=== PATIENT | female | born 1970 | race Caucasian/White ===

== ENCOUNTER 2023-11-21 21:14 | Emergency (ER) | payer BC, SELFPAY ==
[2023-11-21 21:21] VITALS: BP 175/80; PULSE 115; RESP 18; TEMP 36.8; O2SAT 95; BMI 36.2
--- NOTE | 2023-11-21 22:50 | ED_ITS ---
HPI - Skin/Abscess/Foreign Bdy General Chief complaint: Skin/Abscess/Foreign Body Stated complaint: BOIL Time Seen by Provider: 11/21/23 22:47 Source: patient Mode of arrival: walk-in Limitations: no limitations History of Present Illness HPI narrative: abscess perianal started about 3 days ago. Presents with increasing pain. No fever or systemic symptoms MD complaint: Reports abscess/boil Related Data Home Medications Medication Instructions Recorded Confirmed glipizide 5 mg tablet 5 mg PO BID 11/21/23 11/21/23 Allergies Allergy/AdvReac Type Severity Reaction Status Date / Time bactrim Allergy Intermediate Hives Uncoded 11/21/23 21:23 Review of Systems ROS Status of ROS 10 or more systems reviewed and unremark able except as noted in history and below Exam Constitutional Vital Signs, click to edit/add: Last Vital Signs Temp 98.3 F 11/21/23 21:21 Pulse 115 H 11/21/23 21:21 Resp 18 11/21/23 21:21 BP 175/80 H 11/21/23 21:21 Pulse Ox 95 11/21/23 21:21 O2 Del Method Room Air 11/21/23 21:21 Common normals: no apparent distress, average body habitus, oriented x3 and no limitations HENMT Common normals: normocephalic and head/scalp atraumatic Respiratory Common normals: normal respiratory effort, no retractions and no use of accessory muscles Cardio Common normals: regular rate and regular rhythm GI Common normals: Normal to inspection, nondistended, normoactive bowel sounds present, soft to palpation and non-tender Other: perianal abscess Extremity Common normals: normal to inspection and full ROM Neuro Common normals: oriented x3, CN's II-XII intact bilaterally, moves all extremities and no focal motor deficits Psych Appearance: grossly normal Course Vital Signs Vital signs: Vital Signs Temperature 98.3 F 11/21/23 21:21 Pulse Rate 115 H 11/21/23 21:21 Respiratory Rate 18 11/21/23 21:21 Blood Pressure 175/80 H 11/21/23 21:21 Pulse Oximetry 95 11/21/23 21:21 Oxygen Delivery Method Room Air 11/21/23 21:21 Temperature 98.3 F 11/21/23 21:21 Pulse Rate 115 H 11/21/23 21:21 Respiratory Rate 18 11/21/23 21:21 Blood Pressure 175/80 H 11/21/23 21:21 Pulse Oximetry 95 11/21/23 21:21 Oxygen Delivery Method Room Air 11/21/23 21:21 MDM - Skin/Abscess/Foreign Bdy MDM Narrative Medical decision making narrative: presents with perianal absesss. I and D performed. Patient tolerated well. [facility] and is to follow up with Dr Greenwood Discharge Plan Discharge Chief Complaint: Skin/Abscess/Foreign Body Clinical Impression: Abscess, perianal Prescriptions / Home Meds: No Action glipizide 5 mg tablet 5 mg PO BID Instructions: Abscess Incision and Drainage (DC) Additional Instructions: follow up with Dr Greenwood in a couple of days. Referrals: Chapin Greenwood MD [Primary Care Provider] - 1 week Procedures ED Procedure Instructions Procedures Procedures: perianal abscess. 1% lidocaine used as a local. Site cleaned with betaine. 1cm incision with #15 blade. mod amount of brown exudate expressed. irrigated. packed with gauze. Tolerated well
--- NOTE | 2023-11-21 23:19 | PC.NURSE ---
Pt prrone to boils near groin and axillary area. Currently ahs quarter sized boil on left side buttocks near rectum. Pt reports discomfort sitting on bottom.
[2023-11-21] MEDS: CIPROFLOXACIN HCL 500 MG TABLET PO (23:56)
[2023-11-21] MEDS: LIDOCAINE HCL 1% 100 MG/10 ML MDV INJ (23:56)
[2023-11-22 00:01] VITALS: BP 140/87; PULSE 89; RESP 15; O2SAT 97
== END 2023-11-22 | disposition home or self-care (01) ==
PROVIDERS: Emergency Provider Internal Medicine; PCP Family Medicine
DX: K61.0 Anal abscess (principal)
CPT/HCPCS: 99283

== ENCOUNTER 2023-12-04 17:11 | Emergency (ER) | payer BC, SELFPAY ==
[2023-12-04 17:15] VITALS: BP 138/68; PULSE 103; RESP 18; TEMP 36.9; O2SAT 98; BMI 35.6
--- OUTSIDE RECORDS SUMMARY | 2023-12-04 17:20 | XMS_ITS | CCD ---
Author Name Unknown Address [address] [facility] [address] [place] [address] Organization [facility] Care Team Providers Care Assistant Track Coach Name Role Phone KENIA, DR JEFFERSON Admitting Unavailable HOY, DR JEFFERSON Attending Unavailable HOY, DR JEFFERSON Primary Care Unavailable HOY, DR JEFFERSON Consulting Unavailable HOY, DR JEFFERSON Admitting Unavailable HOY, DR JEFFERSON Attending Unavailable HOY, DR JEFFERSON Primary Care Unavailable HOY, DR JEFFERSON Consulting Unavailable WEST, DR NANCY Alvarez Consulting Unavailable HOY, DR JEFFERSON Admitting Unavailable HOY, DR JEFFERSON Attending Unavailable HOY, DR JEFFERSON Primary Care Unavailable HOY, DR JEFFERSON Consulting Unavailable HOY, DR JEFFERSON Primary Care Unavailable DEVYN DAVIES Admitting Unavailable KEKE, DEVYN Attending Unavailable KOTA CABRERA Consulting Unavailable WOLFGANGY, DR JEFFERSON Admitting Unavailable HOY, DR JEFFERSON Attending Unavailable HOY, DR JEFFERSON Primary Care Unavailable HOY, DR JEFFERSON Admitting Unavailable HOY, DR JEFFERSON Attending Unavailable WOLFGANGY, DR JEFFERSON Primary Care Unavailable HOY, DR JEFFERSON Consulting Unavailable Jose Lopez Attending Unavailable SEGUNDO PLASCENCIA Primary Care Physician [phone] Kevin LEONARD Attending Unavailable Li Greenwood Referring Unavailable Allergies Allergy Classification Reported Allergen(s) Allergy Type Date of Onset Reaction(s) Facility (1 source) oxyCODONE Drug Allergy [facility] Repository (4 sources) Sulfamethoxazole / Trimethoprim; Translations: [Bactrim] Drug Allergy 3 [facility] Repository (1 source) Sulfamethoxazole / Trimethoprim; Translations: [sulfamethoxazole-tr imethoprim] Drug Allergy Urticaria (disorder) [facility] Medications Current Medications Medication Drug Class(es) Dates Sig (Normalized) Sig (Original) polyethylene glycol 3350 24901 mg powder for oral solution (1 source) Osmotic Laxative Start: 11-30-2023 End: 12-07-2023 take 17 g by mouth once daily Miralax 3350 17 gram packet 17 gm, Oral, Daily, X 7 day(s), # 119 gm, Refills(s) 0, Pharmacy: [facility]/pharmacy #[id number], 170.2, cm, 11/30/23 9:04:00 EST, Height/Length Dosing, 105, kg, 11/30/23 9:04:00 EST, Weight Dosing Start Date: 11/30/23 Stop Date: 12/07/23 Status: Ordered Problems Active Problems Problem Classification Problem Date Documented Da te Episodic/Chronic Chronic obstructive pulmonary disease and bronchiectasis (1 source) Chronic obstructive pulmonary disease, unspecified; Translations: [COPD UNSPECIFIED] Onset: 12-22-2021 Chronic Diabetes mellitus with complications (1 source) Type 2 diabetes mellitus with hyperglycemia; Translations: [TYPE 2 DM W/HYPERGLYCEMIA] Onset: 07-22-2021 Chronic Diabetes mellitus without complication (4 sources) Type 2 diabetes mellitus without complications; Translations: [TYPE 2 DM WITHOUT COMPLICATIONS] Onset: 02-28-2022 Chronic Other aftercare (1 source) 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; Translations: [[facility] SPECIALIST CURRENT DRUG THERAPY] Onset: 03-04-2022 Episodic Other gastrointestinal disorders (1 source) Constipation, unspecified; Translations: [Constipation, unspecified] Onset: 11-30-2023 Episodic Other hematologic conditions (1 source) Secondary polycythemia; Translations: [SECONDARY POLYCYTHEMIA] Onset: 03-04-2022 Episodic Other screening for suspected conditions (not mental disorders or infectious disease) (4 sources) Encounter for screening mammogram for malignant neoplasm of breast; Translations: [ENC SCR MAMMO MALIG NEOPLASM BREAST] Onset: 01-29-2022 Episodic Other upper respiratory infections (1 source) Acute sinusitis, unspecified; Translations: [ACUTE SINUSITIS UNSPECIFIED] Onset: 12-22-2021 Episodic Residual codes; unclassified (1 source) Family history of malignant neoplasm of breast; Translations: [FAMILY HX MALIG NEOPLASM OF BREAST] Onset: 02-03-2022 Episodic Residual codes; unclassified (1 source) Family history of malignant neoplasm of bladder; Translations: [FAM HX MALIGNANT NEOPLASM BLADDER] Onset: 02-03-2022 Episodic Residual codes; unclassified (1 source) Family history of malignant neoplasm of digestive organs; Translations: [FAM HX MALIG NEOPLASM DIGESTIV ORGN] Onset: 02-03-2022 Episodic Unclassified (3 sources) CONTACT W/AND (SUSP) EXPOS COVID-19; Translations: [CONTACT W/AND (SUSP) EXPOS COVID-19] Onset: 12-22-2021 Past or Other Problems Problem Classification Problem Date Documented Da te Episodic/Chronic Other aftercare (1 source) rat 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 (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) use of oral hypoglycemic drugs; Translations: [DETENTION USE ORAL HYPOGLYCEMIC DX] Onset: 07-22-2021 Episodic Skin and subcutaneous tissue infections (4 sources) Cutaneous abscess of buttock; Translations: [CUTANEOUS ABSCESS OF BUTTOCK] Onset: 07-19-2021 Episodic Unclassified (1 source) CONTACT W/AND (SUSP) EXPOS COVID-19; Translations: [CONTACT W/AND (SUSP) EXPOS COVID-19] Onset: 12-19-2021 Results Test Name Value Interpretation Reference Range Facility Physician Referralon 024 Physician Referral [id number] IFF Normal [facility] Physician Referral [id number] 105 [id number] IFF Normal [facility] Consent for Treatmenton Consent for Treatment [id number]#[id number] IFF Normal [facility] Discharge Instructionson Discharge Instructions [id number] TIFF Normal [facility] ED Clinical Summaryon 2023 ED Clinical Summary (Inserted Image. Magda ble to display) [place] [id number] ED Clinical Summary Person Information [facility]: [facility] Age[facility] 53 Years : 1970 Sex: Female Language: Upper Sorbian PCP: SEGUNDO PLASCENCIA MD Marital Status: Visit Id: Visit Reason: Constipation; Rectal pain; CONSIPATED, POST OP ISSUES Speciality: Acuity: 3 Enc Type: Emergency Med Service: Emergency Arrival: 11/30/2023 08:52:35 Discharge: 11/30/2023 11:48:16 LOS: 000 02:56 Checkin: 11/30/2023 08:52:35 Checkout: 11/30/2023 11:48:16 Dispo Type: Home (Routine DC) EVENTS: Event Name Event Status Request Date/Time Start Date/Time Complete Date/Time Arrive Complete 11/30/2023 08:52:35 11/30/2023 08:52:35 11/30/2023 08:52:35 Document Home Meds Request 11/30/2023 08:52:35 Triage Complete 11/30/2023 08:52:35 11/30/2023 09:04:04 11/30/2023 09:04:04 Bed Assign Complete 11/30/2023 08:57:30 11/30/2023 08:57:30 11/30/2023 08:57:30 Dr Exam Complete 11/30/2023 08:57:30 11/30/2023 09:02:28 11/30/2023 09:02:28 RN Exam Complete 11/30/2023 08:57:30 11/30/2023 09:09:54 11/30/2023 09:09:54 Registration Complete 11/30/2023 09:02:28 11/30/2023 09:05:31 11/30/2023 09:05:31 Reg Complete Request 11/30/2023 09:05:31 Reg Bed Request Complete 11/30/2023 09:05:31 11/30/2023 09:05:31 11/30/2023 09:05:31 Patient Care Request 11/30/2023 09:13:34 Discharge Complete 11/30/2023 11:39:50 11/30/2023 11:48:20 11/30/2023 11:48:20 Transfer Complete 11/30/2023 11:48:20 11/30/2023 11:48:20 11/30/2023 11:48:20 ADDRESS: [address] [facility] [phone] PHYS DOC NOTES: MEDICAL INFORMATION: Prescriptions Given: New Medications [id number], [address] [place], [place] [phone], [phone] polyethylene glycol 3350 (Miralax 3350 17 gram packet) 17 Gram By Mouth every day for 7 Days. Refills: 0. PATIENT EDUCATION INFORMATION: Instructions: Follow up: With: Address: When: Kyra Tellez [address], [address], [facility] [address] [place] [phone] Business (1) In 3 days 12/03/2023 With: Address: When: [facility], [address] [phone] Business (1) In 3 days DIAGNOSIS: Constipation, acute Normal [facility] ED Note-Physicianon 11-30-19 ED Note-Physician Basic Information Time Seen: oJse Lopez DO 11/30/2023 09:02 Chief Complaint pt presents after having abcess lanced on 11/21. pt vebralized rectal pain andd constipation History of Present Illness 53 female presents to the emergency department with constipation and rectal pain. Patient states that she was just in the emergency department on 1224 with an abscess on her gluteal region. This was treated with incision and drainage at the [facility] and she was discharged home on Cipro. Patient states that she believes that she has been getting better regarding her abscess as everything seems to be healing up appropriately. However she states that she does not believe that she has had a normal bowel movement since 1225. She states that last night at 1700 she was trying to go to the bathroom to move her bowels she states she feels like she may have impaction there. This is never happened before she is never had issues with constipation but also has never had a colonoscopy. Prior abdominal surgeries include hernia repair and cholecystectomy but she has no nausea vomiting no fevers no urinary symptoms no blood with this. She has tried some laxatives drpt-mxx-vuwtccy as well as some stool softeners without relief of symptoms. She was not prescribed any pain medications or opiates for her recent procedure in the ER. No other aggravating or relieving factors no other associated symptoms no other prior treatments or complaints. Family: Reviewed and noncontributory Social: lives at home Review of systems negative unless otherwise specified in the HPI. Physical Exam Vitals & Measurements T: 36.6 ?C(Oral) HR: 107(Peripheral) RR: 18 BP: 146/94 SpO2: 98% HT: 170.18 cm WT: 105 kg BMI: 36.26 General: The patient appears well and in no apparent distress. Patient is resting comfortably on cart. Skin: Warm, dry, no pallor noted. Head: Normocephalic, atraumatic Neck: No JVD Eye: PERRLA, EOMI ENT: Moist mucus membranes Cardiovascular: Regular rate normal peripheral perfusion Respiratory: No respiratory distress no accessory muscle use no obvious audible wheezing Chest Wall: no deformity Musculoskeletal: normal ROM, no deformity, no swelling GI: Soft no obvious distention. No rebound or rigidity. No guarding. No tenderness. Rectal: Exam performed with nurse insole bottom filler in the room. I did examine the left gluteal soft tissue which does appear to have remnants of an abscess however this appears to be healing well there is no fluctuance to this area it is slightly tender to palpation but there is no redness no pus or drainage from this area. Rectal exam is benign there is no hemorrhoids appreciated no bleeding no obvious fissures there does appear to be large amount of stool in the rectal vault. Neurological: A&O moves all extremities equal strength and symmetry Psychiatric: Cooperative and appropriate Medical Decision Making Patient did have successful bowel movement here after milk of molasses enema. She is discharged home to follow-up I did educate her on the importance of following up with GI given recommendation of colonoscopy at the age of 46 she is certainly due for 1. Assessment/Plan Constipation, acute (K59.00: Constipation, unspecified) Orders: polyethylene glycol 3350, 17 gm, Oral, Daily, X 7 day(s), # 119 gm, Refills(s) 0, Pharmacy: [facility]/pharmacy #[id number], 170.2, cm, 11/30/23 9:04:00 EST, Height/Length Dosing, 105, kg, 11/30/23 9:04:00 EST, Weight Dosing Communication Order Communication Order Physician to Nursing Disposition Plan Discharge Prescription List Prescriptions Miralax 3350 17 gram packet, 17 gm, Oral, Daily Follow-up With When Contact Information Kyra Tellez In 3 days 12/03/[address], [address] [phone] Business (1) Additional Instructions: SEGUNDO PLASCENCIA In 3 days [facility] [address] [place] [address]- Business (1) Additional Instructions: Problem List/Past Medical History Ongoing No qualifying data Historical No qualifying data Medications Inpatient No active inpatient medications Home No active home medications Allergies Bactrim (Hives) Lab Results No qualifying data available. Diagnostic Results No qualifying data available. Normal [facility] Comment on above: Result Comment: Elec tronically Signed By: Jose Lopez DO\.br\Date and Time Signed: 11/30/23 11:40 EST ED Patient Education Noteon 11-30-2023 ED Patient Education Note Normal [facility] ED Patient Summaryon 024 ED Patient Summary (Inserted Image. Magda ble to display) [address] [address] Patient Discharge Instructions Person Information Name: CONRADO ABEBE Age: 53 Years Arrival Date: 11/30/2023 08:52:35 Discharge Diagnosis: Constipation, acute Primary Care Physician: SEGUNDO PLASCENCIA MD Provider Information Primary Provider: Jose Lopez DO Advanced Social Media Community Manager:None The exam and treatment you received in the Emergency Department were for an urgent problem and are not intended as complete care. It is important that you follow up with a doctor, nurse practitioner, or physician?s radiology physician assistant for ongoing care. If your symptoms become worse or you do not improve as expected and you are unable to reach your usual health care provider, you should return to the Emergency Department. We are available 24 hours a day. CONRADO ABEBE has been given the following list of patient education materials, prescriptions and follow-up instructions: Follow-up Instructions: With: Address: When: Kyra Tellez [address], [address], [address] [phone] Business (1) In 3 days 12/03/2023 With: Address: When: SEGUNDO PLASCENCIA [facility] [address] [place] [address] Business (1) In 3 days In the event that this physician does not participate in your insurance network, please consult with your insurance company to find a nearby participating provider. Patient Education Materials: A MESSAGE TO ALL PATIENTS REGARDING OPIOIDS PRESCRIPTION OPIOIDS: WHAT YOU NEED TO KNOW Prescription opioids can be used to help relieve yqaafxcp-hw-utxslv pain and are often prescribed following a surgery or injury, or for certain health conditions. These medications can be an important part of the treatment but also come with serious risks. It is important to work with your healthcare provider to make sure you are getting the safest, most effective care. WHAT ARE THE RISKS AND SIDE EFFECTS OF OPIOID USE? Prescription opioids carry serious risks of addiction and overdose, especially with prolonged use. An opioid overdose, often marked by slowed breathing, can cause sudden . The use of prescription opioids can have a number of side effects as well, even when taken as directed: ? Tolerance?meaning you might need to take more of the medication for the same pain relief ? Physical dependence?meaning you have symptoms of withdrawal when a medication is stopped ? Increased sensitivity to pain ? Constipation ? Nausea, vomiting, and dry mouth ? Sleepiness and dizziness ? Confusion ? Depression ? Low levels of testosterone that can result in lower sex drive, energy, and strength ? Itching and sweating RISKS ARE GREATER WITH: ? History of drug misuse, substance use disorder, or overdose ? Mental health conditions (such as depression or anxiety) ? Sleep apnea ? Older age (65 years and older) ? Avoid alcohol while taking prescription opioids. Also, unless specifically advised by your health care provider, medications to avoid include: ? Benzodiazepines (such as Xanax or Valium) ? Muscle relaxants (such as Soma or Flexeril) ? Hypnotics (such as Ambien or Lunesta) ? Other prescription opioids KNOW YOUR OPTIONS Talk to your health care provider about ways to manage your pain that don?t involve prescription opioids. Some of these options may actually work better and have fewer risks and side effects. Options may include: ? Pain relievers such as acetaminophen, ibuprofen, and naproxen ? Some medication that are also used for depression or seizures ? Physical therapy and exercise ? Cognitive behavioral therapy, a psychological, goal-directed approach, in which patients learn how to modify physical, behavioral, and emotional triggers of pain and stress. IF YOU ARE PRESCRIBED OPIOIDS FOR PAIN: ? Never take opioids in greater amounts or more often than prescribed. ? Follow up with your primary health care provider. o Work together to create a plan on how to manage your pain. o Talk about ways to help manage your pain that don?t involve prescription opioids. o Talk about any and all concerns and side effects. ? Help prevent misuse and abuse o Never sell or share prescription opioids. o Never use another person?s prescription opioids. ? Store prescription opioids in a secure place and out of reach of others (this may include visitors, children, friends, and family). ? Safely dispose of unused prescription opioids: Find your community drug take-back program or your pharmacy mail-back program, or flush them down the toilet, following guidance from the Food and Drug Administration (www.fda.gov/Drugs/Reso urcesForYou). ? Visit www.cdc.gov/drugoverdos e to learn about the risks of opioids abuse and overdose. ? If you believe you may be struggling with addiction, tell your health care (more content not included)... Normal [facility] CBC AUTO DIFFon 02-28-2022 BASO # 0.1 103/ul Normal 0.0-0.1 [facility] Comment on above: Performed By: #### C MP #### [facility] [address] [place] [address] Dr. Hai Williamson Basophils/100 WBC (Bld) 1.2 % Normal 0.2-2.0 [facility] Comment on above: Performed By: #### C MP #### [facility] [address] [place] [address] Dr. Hai Williamson EO # 0.2 103/ul Normal 0.0-0.7 [facility] Comment on above: Performed By: #### C MP #### [facility] [address] [place] [address] Dr. Hai Williamson Eosinophils/100 WBC (Bld) 2.7 % Normal 0.9-7.0 [facility] Comment on above: Performed By: #### C MP #### [facility] [address] [place] [address] Dr. Hai Williamson Erythrocyte distribution width (RBC) [Ratio] 15.3 % Critically high 11.0-15.0 [facility] Comment on above: Performed By: #### C MP #### [facility] [address] [place] [address] Dr. aHi Williamson Hematocrit (Bld) [Volume fraction] 59.0 % Critically high 36.0-48.0 [facility] Comment on above: Performed By: #### C MP #### [facility] [address] [place] [address] Dr. Hai Williamson Hemoglobin (Bld) [Mass/Vol] 19.1 g/dL Critically high 12.0-16.0 [facility] Comment on above: Performed By: #### C MP #### [facility] [address] [place] [address] Dr. Hai Williamson IG # 0.02 10e3/ul Normal 0.00-0.03 [facility] Comment on above: Performed By: #### C MP #### [facility] [address] [place] [address] Dr. Hai Williamson IG % 0.3 % Normal 0.0-0.5 [facility] Comment on above: Performed By: #### C MP #### [facility] [address] [place] [address] Dr. Hai Williamson LYMPH # 1.9 103/ul Normal 1.2-3.8 [facility] Comment on above: Performed By: #### C MP #### [facility] [address] [place] [address] Dr. Hai Williamson Lymphocytes/100 WBC (Bld) 28.4 % Normal 20.5-60.0 [facility] Comment on above: Performed By: #### C MP #### [facility] [address] [place] [address] Dr. Hai Williamson MANUAL DIFF REQ NO Normal [facility] Comment on above: Performed By: #### C MP #### [facility] [address] [place] [address] Dr. Hai Williamson MCH (RBC) [Entitic mass] 30.8 pg Normal 26.7-34.0 [facility] Comment on above: Performed By: #### C MP #### [facility] [address] [place] [address] Dr. Hai Williamson MCHC (RBC) [Mass/Vol] 32.4 g/dL Normal 29.9-35.2 [facility] Comment on above: Performed By: #### C MP #### [facility] [address] [place] [address] Dr. Hai Williamson MCV (RBC) [Entitic vol] 95.0 fL Normal 81.0-99.0 [facility] Comment on above: Performed By: #### C MP #### [facility] [address] [place] [address] Dr. Hai Williamson MONO # 0.7 103/ul Normal 0.3-0.8 [facility] Comment on above: Performed By: #### C MP #### [facility] [address] [place] [address] Dr. Hai Williamson Monocytes/100 WBC (Bld) 10.4 % Normal 1.7-12.0 [facility] Comment on above: Performed By: #### C MP #### [facility] [address] [place] [address] Dr. Hai Williamson NEUT # 3.8 103/ul Normal 1.4-6.5 [facility] Comment on above: Performed By: #### C MP #### [facility] [address] [place] [address] Dr. Hai Williamson Neutrophils/100 WBC (Bld) 57.0 % Normal 43.0-75.0 [facility] Comment on above: Performed By: #### C MP #### [facility] [address] [place] [address] Dr. Hai Williamson Platelet mean volume (Bld) [Entitic vol] 8.7 fL Critically low 9.5-13.5 [facility] Comment on above: Performed By: #### C MP #### [facility] [address] [place] [address] Dr. Hai Williamson PLT 168 103/ul Normal 150-450 [facility] Comment on above: Performed By: #### C MP #### [facility] [address] [address] [address] Hai Williamson RBC 6.21 106/ul Critically high 4.20-5.40 [facility] Comment on above: Performed By: #### C MP #### [facility] [address] [address] [address] Hai Williamson WBC 6.6 103/ul Normal 4.0-11.0 [facility] Comment on above: Performed By: #### C MP #### [facility] [address] [address] [address] Hai Williamson GLYCOHEMOGLOBIN A1Con 2021 ADA RECOMMENDATION ADA THERAPEUTIC TARG ET 6.0 - 7.0 ACTION SUGGESTED > 7.0 Normal [facility] Comment on above: Performed By: #### A 1C #### [facility] [address] [address] [address] Hai Williamson Glucose [Mass/Vol] 249 mg/dL Normal [facility] Comment on above: Performed By: #### A 1C #### [facility] [address] [address] [address] Hai Williamson HbA1c (Bld) [Mass fraction] 10.3 % Critically high <=6.0 [facility] Comment on above: Performed By: #### A 1C #### [facility] [address] [place] [address] Dr. Hai Williamson PERIPHERAL SMEARon Pathologist Cyto stain Nom (Cvx/Vag) [ID] DR. RUBY GARDNER Normal [facility] Comment on above: Result Comment: Revi ew of peripheral smear reveals erythrocytosis. No schistocytes or microspherocytes are seen. The platelets are adequate in number with normal morphology. No atypical lymphocytes or immature blasts are seen. The differential includes secondary polycythemia vs a myeloproliferative disorder. Recommend clinical correlation with laboratory studies such as EPO and if a myeloproliferative disorder is of clinical concern, RICHIE-2 mutation analysis of peripheral blood is recommended. CPT 78119 Fatoumata Gardner MD 03-04-22 Performed By: #### C MP #### [facility] [address] [address] [address] Hai Williamson PROF 14(COMP METB)on 022 Albumin [Mass/Vol] 3.3 g/dL Critically low 3.4-5.0 Th e [facility] Comment on above: Performed By: #### C MP #### [facility] [address] [address] [address] Hai Williamson Albumin/Globulin [Mass ratio] 0.8 {ratio} Normal [facility] Comment on above: Performed By: #### C MP #### [facility] [address] [place] [address] Dr. Hai Williamson ALP [Catalytic activity/Vol] 127 U/L Critically high 46-116 [facility] Comment on above: Performed By: #### C MP #### [facility] [address] [place] [address] Dr. Hai Williamson ALT [Catalytic activity/Vol] 45 U/L Normal 14-59 [facility] Comment on above: Performed By: #### C MP #### [facility] [address] [place] [address] Dr. Hai Williamson Anion gap [Moles/Vol] 14.1 mmol/L Normal [facility] Comment on above: Performed By: #### C MP #### [facility] [address] [place] [address] Dr. Hai Williamson AST [Catalytic activity/Vol] 29 U/L Normal 15-37 [facility] Comment on above: Performed By: #### C MP #### [facility] [address] [place] [address] Dr. Hai Williamson Bilirubin [Mass/Vol] 0.7 mg/dL Normal 0.2-1.3 [facility] Comment on above: Performed By: #### C MP #### [facility] [address] [place] [address] Dr. Hai Williamson Calcium [Mass/Vol] 8.5 mg/dL Normal 8.5-10.1 [facility] Comment on above: Performed By: #### C MP #### [facility] [address] [place] [address] Dr. Hai Williamson Chloride [Moles/Vol] 103 mmol/L Normal 98-107 [facility] Comment on above: Performed By: #### C MP #### [facility] [address] [address] [address] Hai Williamson CO2 [Moles/Vol] 28.8 mmol/L Normal 22.0-30.0 [facility] Comment on above: Performed By: #### C MP #### [facility] [address] [place] [address] Dr. Hai Williamson Creatinine [Mass/Vol] 0.54 mg/dL Normal 0.52-1.04 [facility] Comment on above: Performed By: #### C MP #### [facility] [address] [place] [address] Dr. Hai Williamson EGFR-AF NORTH KOREAN >60 Normal >=60 [facility] Comment on above: Performed By: #### C MP #### [facility] [address] [place] [address] Dr. Hai Williamson EGFR-NON AF [place]TH [place]OREAN >60 Normal >=60 [facility] Comment on above: Performed By: #### C MP #### [facility] [address] [place] [address] Dr. Hai Williamson Globulin (S) [Mass/Vol] 4.2 g/dL Normal [facility] Comment on above: Performed By: #### C MP #### [facility] [address] [place] [address] Dr. Hai Williamson Glucose [Mass/Vol] 180 mg/dL Critically high 74-106 [facility] Comment on above: Performed By: #### C MP #### [facility] [address] [place] [address] Dr. Hai Williamson Potassium [Moles/Vol] 3.9 mmol/L Normal 3.4-5.0 [facility] Comment on above: Performed By: #### C MP #### [facility] [address] [place] [address] Dr. Hai Williamson Protein [Mass/Vol] 7.5 g/dL Normal 6.1-8.2 [facility] Comment on above: Performed By: #### C MP #### [facility] [address] [address] [address] Hai Williamson Sodium [Moles/Vol] 142 mmol/L Normal 137-145 [facility] Comment on above: Performed By: #### C MP #### [facility] [address] [address] [address] Hai Williamson Urea nitrogen [Mass/Vol] 7.0 mg/dL Normal 7.0-18.0 [facility] Comment on above: Performed By: #### C MP #### [facility] [address] [address] [address] Hai Williamson Urea nitrogen/Creatinine [Mass ratio] 13.0 mg/mg Normal [facility] Comment on above: Performed By: #### C MP #### [facility] [address] [address] [address] Hai Williamson MG MAMM SCREEN 3D JULIET CADon 01-29-2022 MG MAMM SCREEN 3D JULIET CAD Patient: CONRADO ABEBE Exam Date: 01/29/2022 : 1970 Gender:F Ordering : DR LI GREENWOOD . Admission #: [id number] Family : Order #: [id number] CLICK HERE TO VIEW EXAM RADIOLOGY REPORT PROCEDURE: MAMMOGRAM SCREENING 3D BILATERAL CAD COMPARISON: MG MAMM SCREEN JULIET W CAD, 11/19/2020. INDICATIONS: Screening mammography Calculator Name NCI Breast Cancer Risk Assessment Tool 5 Year Breast Cancer Risk 2.00% Lifetime Breast Cancer Risk 17.40% Personal Breast Cancer No Personal Ovarian Cancer No Treatments None Family Cancers Mother with breast cancer at age 55; Mother with throat cancer at age 68; Father with bladder cancer at age 71. LOCATION: [facility] BREAST COMPOSITION: Scattered areas fibroglandular density. FINDINGS: DIAGNOSTIC CATEGORY 1--NEGATIVE. NO CHANGE FROM COMPARISON ASSESSMENT. Scattered benign-appearing calcifications are present. Scattered benign-appearing lymph nodes are present. RIGHT BREAST: No significant suspicious finding. LEFT BREAST: No significant suspicious finding. RECOMMENDATIONS: ROUTINE MAMMOGRAM AND CLINICAL EVALUATION IN 12 MONTHS. PLEASE NOTE: A NORMAL MAMMOGRAM DOES NOT EXCLUDE THE POSSIBILITY OF BREAST CANCER. A CLINICALLY SUSPICIOUS PALPABLE LUMP SHOULD BE BIOPSIED. Dictated by: Nancy Abebe MD on 01/30/2022 at 08:02 Approved by: Nancy Abebe MD on 01/30/2022 at 08:04 Normal [facility] CBC AUTO DIFFon 01-24-2022 BASO # 0.1 103/ul Normal 0.0-0.1 [facility] Comment on above: Performed By: #### C MP #### [facility] [address] [address] [address] Hai Williamson Basophils/100 WBC (Bld) 1.0 % Normal 0.2-2.0 [facility] Comment on above: Performed By: #### C MP #### [facility] [address] [place] [address] Dr. Hai Williamson EO # 0.1 103/ul Normal 0.0-0.7 [facility] Comment on above: Performed By: #### C MP #### [facility] [address] [place] [address] Dr. Hai Williamson Eosinophils/100 WBC (Bld) 1.7 % Normal 0.9-7.0 [facility] Comment on above: Performed By: #### C MP #### [facility] [address] [place] [address] Dr. Hai Williamson Erythrocyte distribution width (RBC) [Ratio] 15.9 % Critically high 11.0-15.0 [facility] Comment on above: Performed By: #### C MP #### [facility] [address] [place] [address] Dr. Hai Williamson Hematocrit (Bld) [Volume fraction] 65.5 % Critically high 36.0-48.0 [facility] Comment on above: Performed By: #### C MP #### [facility] [address] [place] [address] Dr. Hai Williamson Hemoglobin (Bld) [Mass/Vol] 21.8 g/dL Critically high 12.0-16.0 [facility] Comment on above: Performed By: #### C MP #### [facility] [address] [address] [address] Hai Williamson IG # 0.02 10e3/ul Normal 0.00-0.03 [facility] Comment on above: Performed By: #### C MP #### [facility] [address] [address] [address] Hai Williamson IG % 0.3 % Normal 0.0-0.5 [facility] Comment on above: Performed By: #### C MP #### [facility] [address] [place] [address] Dr. Hai Williamson LYMPH # 2.5 103/ul Normal 1.2-3.8 [facility] Comment on above: Performed By: #### C MP #### [facility] [address] [place] [address] Dr. Hai Williamson Lymphocytes/100 WBC (Bld) 34.8 % Normal 20.5-60.0 [facility] Comment on above: Performed By: #### C MP #### [facility] [address] [place] [address] Dr. Hai Williamson MANUAL DIFF REQ NO Normal [facility] Comment on above: Performed By: #### C MP #### [facility] [address] [place] [address] Dr. Hai Williamson MCH (RBC) [Entitic mass] 31.6 pg Normal 26.7-34.0 [facility] Comment on above: Performed By: #### C MP #### [facility] [address] [place] [address] Dr. Hai Williamson MCHC (RBC) [Mass/Vol] 33.3 g/dL Normal 29.9-35.2 [facility] Comment on above: Performed By: #### C MP #### [facility] [address] [place] [address] Dr. Hai Williamson MCV (RBC) [Entitic vol] 94.9 fL Normal 81.0-99.0 [facility] Comment on above: Performed By: #### C MP #### [facility] [address] [place] [address] Dr. Hai Williamson MONO # 0.6 103/ul Normal 0.3-0.8 [facility] Comment on above: Performed By: #### C MP #### [facility] [address] [address] [address] Hai Williamson Monocytes/100 WBC (Bld) 7.7 % Normal 1.7-12.0 [facility] Comment on above: Performed By: #### C MP #### [facility] [address] [address] [address] Hai Williamson NEUT # 3.9 103/ul Normal 1.4-6.5 [facility] Comment on above: Performed By: #### C MP #### [facility] [address] [place] [address] Dr. Hai Williamson Neutrophils/100 WBC (Bld) 54.5 % Normal 43.0-75.0 [facility] Comment on above: Performed By: #### C MP #### [facility] [address] [place] [address] Dr. Hai Williamson Platelet mean volume (Bld) [Entitic vol] 9.8 fL Normal 9.5-13.5 [facility] Comment on above: Performed By: #### C MP #### [facility] [address] [place] [address] Dr. Hai Williamson PLT 154 103/ul Normal 150-450 [facility] Comment on above: Performed By: #### C MP #### [facility] [address] [address] [address] Hai Williamson RBC 6.90 106/ul Critically high 4.20-5.40 [facility] Comment on above: Performed By: #### C MP #### [facility] [address] [place] [address] Dr. Hai Williamson WBC 7.2 103/ul Normal 4.0-11.0 [facility] Comment on above: Performed By: #### C MP #### [facility] [address] [place] [address] Dr. Hai Williamson DIRECT LDLon 01-24-2022 Cholesterol in LDL [Mass/Vol] 204 mg/dL Normal [facility] Comment on above: Performed By: #### L IPID, CMP, T7, TSH, DLDL #### [facility] [address] [place] [address] Dr. Hai Williamson DLDL NORMAL SEE BELOW Normal [facility] Comment on above: Result Comment: <100 mg/dl OPTIMAL 100 - 129 mg/dl NEAR OR ABOVE OPTIMAL 130 - 159 mg/dl BORDERLINE HIGH 160 - 189 mg/dl HIGH >190 mg/dl VERY HIGH Performed By: #### L IPID, CMP, T7, TSH, DLDL #### [facility] [address] [address] [address] Hai Williamson FREE THYROXINE INDEX T7on FTI 2.73 Normal [facility] Comment on above: Performed By: #### L IPID, CMP, T7, TSH, DLDL #### [facility] [address] [place] [address] Dr. Hai Williamson T3U 31.0 % Normal 23.5-40.5 [facility] Comment on above: Performed By: #### L IPID, CMP, T7, TSH, DLDL #### [facility] [address] [place] [address] Dr. Hai Williamson T4 [Mass/Vol] 8.80 ug/dL Normal 5.53-11.00 [facility] Comment on above: Performed By: #### L IPID, CMP, T7, TSH, DLDL #### [facility] [address] [place] [address] Dr. Hai Williamson GLYCOHEMOGLOBIN A1Con 2021 ADA RECOMMENDATION ADA THERAPEUTIC TARG ET 6.0 - 7.0 ACTION SUGGESTED > 7.0 Normal [facility] Comment on above: Performed By: #### C MP #### [facility] [address] [place] [address] Dr. Hai Williamson Glucose [Mass/Vol] 246 mg/dL Normal [facility] Comment on above: Performed By: #### C MP #### [facility] [address] [place] [address] Dr. Hai Williamson HbA1c (Bld) [Mass fraction] 10.2 % Critically high <=6.0 [facility] Comment on above: Performed By: #### C MP #### [facility] [address] [place] [address] Dr. Hai Williamson IRONon 01-24-2022 Iron [Mass/Vol] 145.0 ug/dL Normal 37.0-170.0 [facility] Comment on above: Performed By: #### I JOY #### [facility] [address] [place] [address] Dr. Hai Williamson LIPID PROFILEon 01-24-2022 CHOL-HDL RATIO NORM SEE BELOW Normal [facility] Comment on above: Result Comment: 3.3 - 4.4 LOW RISK 4.4 - 7.1 AVERAGE RISK 7.1 - 11.0 MODERATE RISK >11.0 HIGH RISK Performed By: #### L IPID, CMP, T7, TSH, DLDL #### [facility] [address] [place] [address] Dr. Hai Williamson Cholesterol [Mass/Vol] 332 mg/dL Critically high <=200 [facility] Comment on above: Performed By: #### L IPID, CMP, T7, TSH, DLDL #### [facility] [address] [place] [address] Dr. Hai Williamson Cholesterol in HDL [Mass/Vol] 40 mg/dL Normal [facility] Comment on above: Performed By: #### L IPID, CMP, T7, TSH, DLDL #### [facility] [address] [place] [address] Dr. Hai Williamson Cholesterol.total/Ch olesterol in HDL [Mass ratio] 8.3 {ratio} Normal [facility] Comment on above: Performed By: #### L IPID, CMP, T7, TSH, DLDL #### [facility] [address] [place] [address] Dr. Hai Williamson HDL NORMAL > or = 60 mg/dl - LO W CARDIOVASCULAR RISK <40 mg/dl - HIGH CARDIOVASCULAR RISK Normal [facility] Comment on above: Performed By: #### L IPID, CMP, T7, TSH, DLDL #### [facility] [address] [address] [address] Hai Williamson Triglyceride [Mass/Vol] 441 mg/dL Critically high <=150 [facility] Comment on above: Performed By: #### L IPID, CMP, T7, TSH, DLDL #### [facility] [address] [place] [address] Dr. Hai Williamson PROF 14(COMP METB)on 022 Albumin [Mass/Vol] 3.2 g/dL Critically low 3.5-5.0 Th e [facility] Comment on above: Performed By: #### L IPID, CMP, T7, TSH, DLDL #### [facility] [address] [place] [address] Dr. Hai Williamson Albumin/Globulin [Mass ratio] 0.7 {ratio} Normal [facility] Comment on above: Performed By: #### L IPID, CMP, T7, TSH, DLDL #### [facility] [address] [place] [address] Dr. Hai Williamson ALP [Catalytic activity/Vol] 191 U/L Critically high 38-126 [facility] Comment on above: Performed By: #### L IPID, CMP, T7, TSH, DLDL #### [facility] [address] [place] [address] Dr. Hai Williamson ALT [Catalytic activity/Vol] 118 U/L Critically high 9-52 [facility] Comment on above: Performed By: #### L IPID, CMP, T7, TSH, DLDL #### [facility] [address] [address] [address] Hai Williamson Anion gap [Moles/Vol] 9.7 mmol/L Normal [facility] Comment on above: Performed By: #### L IPID, CMP, T7, TSH, DLDL #### [facility] [address] [place] [address] Dr. Hai Williamson AST [Catalytic activity/Vol] 74 U/L Critically high 14-36 [facility] Comment on above: Performed By: #### L IPID, CMP, T7, TSH, DLDL #### [facility] [address] [address] [address] Hai Williamson Bilirubin [Mass/Vol] 1.0 mg/dL Normal 0.2-1.3 [facility] Comment on above: Performed By: #### L IPID, CMP, T7, TSH, DLDL #### [facility] [address] [address] [address] Hai Williamson Calcium [Mass/Vol] 9.5 mg/dL Normal 8.4-10.2 [facility] Comment on above: Performed By: #### L IPID, CMP, T7, TSH, DLDL #### [facility] [address] [place] [address] Dr. Hai Williamson Chloride [Moles/Vol] 99 mmol/L Normal 98-107 [facility] Comment on above: Performed By: #### L IPID, CMP, T7, TSH, DLDL #### [facility] [address] [address] [address] Hai Williamson CO2 [Moles/Vol] 28.8 mmol/L Normal 22.0-30.0 [facility] Comment on above: Performed By: #### L IPID, CMP, T7, TSH, DLDL #### [facility] [address] [place] [address] Dr. aHi Williamson Creatinine [Mass/Vol] 0.60 mg/dL Normal 0.52-1.04 [facility] Comment on above: Performed By: #### L IPID, CMP, T7, TSH, DLDL #### [facility] [address] [place] [address] Dr. Hai Williamson EGFR-AF [place]TH [place]OREAN >60 Normal >=60 [facility] Comment on above: Performed By: #### L IPID, CMP, T7, TSH, DLDL #### [facility] [address] [place] [address] Dr. Hai Williamson EGFR-NON AF [place]ORE[place] >60 Normal >=60 [facility] Comment on above: Performed By: #### L IPID, CMP, T7, TSH, DLDL #### [facility] [address] [place] [address] Dr. Hai Williamson Globulin (S) [Mass/Vol] 4.7 g/dL Normal [facility] Comment on above: Performed By: #### L IPID, CMP, T7, TSH, DLDL #### [facility] [address] [address] [address] Hai Williamson Glucose [Mass/Vol] 346 mg/dL Critically high 74-106 [facility] Comment on above: Performed By: #### L IPID, CMP, T7, TSH, DLDL #### [facility] [address] [place] [address] Dr. Hai Williamson Potassium [Moles/Vol] 4.5 mmol/L Normal 3.4-5.0 [facility] Comment on above: Performed By: #### L IPID, CMP, T7, TSH, DLDL #### [facility] [address] [place] [address] Dr. Hai Williamson Protein [Mass/Vol] 7.9 g/dL Normal 6.1-8.2 [facility] Comment on above: Performed By: #### L IPID, CMP, T7, TSH, DLDL #### [facility] [address] [place] [address] Dr. Hai Williamson Sodium [Moles/Vol] 133 mmol/L Critically low 137-145 [facility] Comment on above: Performed By: #### L IPID, CMP, T7, TSH, DLDL #### [facility] [address] [place] [address] Dr. Hai Williamson Urea nitrogen [Mass/Vol] 12.0 mg/dL Normal 7.0-17.0 [facility] Comment on above: Performed By: #### L IPID, CMP, T7, TSH, DLDL #### [facility] [address] [place] [address] Dr. Hai Williamson Urea nitrogen/Creatinine [Mass ratio] 20.0 mg/mg Normal [facility] Comment on above: Performed By: #### L IPID, CMP, T7, TSH, DLDL #### [facility] [address] [place] [address] Dr. Hai Williamson TSHon 01-24-2022 TSH 2.090 uIU/mL Normal 0.470-4.680 [facility] Comment on above: Performed By: #### L IPID, CMP, T7, TSH, DLDL #### [facility] [address] [address] [address] Hai Williamson TSH RANGE SEE BELOW Normal [facility] Comment on above: Result Comment: <0.3 4 UIU/ml HYPERTHYROID 0.34-5.60 UIU/ml EUTHYROID >5.60 UIU/ml HYPOTHYROID Performed By: #### L IPID, CMP, T7, TSH, DLDL #### [facility] [address] [address] [address] Hai Williamson [facility] SARS-CoV-2 (COVID-19) RNA MICHAEL+probe Ql (Unsp spec) Not detected Normal NOT DETECTED [facility] Comment on above: Result Comment: This test is not yet approved or cleared by the [place] FDA. When there are no FDA-approved or cleared tests available, and other criteria are met, FDA can make tests available under an emergency access mechanism called an Emergency Use Authorization (EUA). The EUA for this test is supported by the [employer] Clerk of Health and Human Service's (HHS's) declaration that circumstances exist to justify the emergency use of in vitro diagnostics for the detection and/or diagnosis of the virus that causes COVID-19. This EUA will remain in effect (meaning this test can be used) for the duration of the COVID-19 declaration justifying emergency of IVDs, unless it is terminated or revoked by FDA (after which the test may no longer be used). When diagnostic testing is negative, the possibility of a false negative should be considered in the context of a patient's recent exposures and the presence of clinical signs and symptoms consistent with SARS-CoV-2. Performed By: #### C MP #### [facility] [address] [place] [address] Dr. Hai Williamson CULTURE ABSCESSon 07-22-2021 CULTURE ABSCESS Specimen Comments: Abscess on right buttock Culture Observations: No growth of anaerobes at 72 hours. Isolate 1 Escherichia coli Moderate growth of ORGANISM 1 Escherichia coli ANTIBIOTIC M.I.C RX STATUS Ampicillin <=2 S F Ampicillin/Sulbactam <=2 S F Piperacillin/Tazobactam <=4 S F Cefazolin <=4 S F Ceftazidime <=1 S F Ceftriaxone <=1 S F Ertapenem <=0.5 S F Imipenem <=0.25 S F Amikacin <=2 S F Gentamicin <=1 S F Tobramycin <=1 S F Ciprofloxacin <=0.25 S F Levofloxacin <=0.12 S F Trimethoprim/Sulfametho xazole <=20 S F Normal [facility] Comment on above: Performed By: #### C MP #### [facility] [address] [place] [address] Dr. Hai Williamson CBC AUTO DIFFon 07-19-2021 BASO # 0.1 103/ul Normal 0.0-0.1 [facility] Comment on above: Performed By: #### C BC #### [facility] [address] [place], [place] [id number] Meenu Lily Basophils/100 WBC (Bld) 0.5 % Normal 0.2-2.0 [facility] Comment on above: Performed By: #### C BC #### [facility] [facility] [address] [place], [place] [id number] Meenu Lily EO # 0.2 103/ul Normal 0.0-0.7 [facility] Comment on above: Performed By: #### C BC #### [facility] [address] [place] [address] Meenu Lily Eosinophils/100 WBC (Bld) 1.4 % Normal 0.9-7.0 [facility] Comment on above: Performed By: #### C BC #### [facility] [address] [place], [place] [id number] Meenu Lily Erythrocyte distribution width (RBC) [Ratio] 14.0 % Normal 11.0-15.0 [facility] Comment on above: Performed By: #### C BC #### [facility] [address] [place] [address] Meenuanna Bautista Hematocrit (Bld) [Volume fraction] 53.1 % Critically high 36.0-48.0 [facility] Comment on above: Performed By: #### C BC #### [facility] [address] [place] [address] Meenu Lily Hemoglobin (Bld) [Mass/Vol] 17.6 g/dL Critically high 12.0-16.0 [facility] Comment on above: Performed By: #### C BC #### [facility] [address] [place], [place] [address] Meenu Lily IG # 0.07 10e3/ul Critically high 0.00-0.03 [facility] Comment on above: Performed By: #### C BC #### [facility] [address] [place] [address] Meenu Lily IG % 0.5 % Normal 0.0-0.5 [facility] Comment on above: Performed By: #### C BC #### [facility] [address] [place], [place] [address] Meenu Lily LYMPH # 3.0 103/ul Normal 1.2-3.8 [facility] Comment on above: Performed By: #### C BC #### [facility] [address] [place], [place] [address] Meenu Bautista Lymphocytes/100 WBC (Bld) 20.5 % Normal 20.5-60.0 [facility] Comment on above: Performed By: #### C BC #### [facility] [address] [place], [place] [address] Meenu Bautista MANUAL DIFF REQ NO Normal [facility] Comment on above: Performed By: #### C BC #### [facility] [address] [place], [place] [address] Meenu Bautista MCH (RBC) [Entitic mass] 31.7 pg Normal 26.7-34.0 [facility] Comment on above: Performed By: #### C BC #### [facility] [address] [place], [place] [address] Meenuanna Bautista MCHC (RBC) [Mass/Vol] 33.1 g/dL Normal 29.9-35.2 [facility] Comment on above: Performed By: #### C BC #### [facility] [address] [place], [place] [address] Meenu Bautista MCV (RBC) [Entitic vol] 95.7 fL Normal 81.0-99.0 [facility] Comment on above: Performed By: #### C BC #### [facility] [address] [place], [place] [address] Meenuanna Crameren MONO # 1.0 103/ul Critically high 0.3-0.8 [facility] Comment on above: Performed By: #### C BC #### [facility] [address] [place], [place] [address] Meenu Bautista Monocytes/100 WBC (Bld) 7.1 % Normal 1.7-12.0 [facility] Comment on above: Performed By: #### C BC #### [facility] [address] [place], [place] [address] Meenuanna Crameren NEUT # 10.1 103/ul Critically high 1.4-6.5 [facility] Comment on above: Performed By: #### C BC #### [facility] [address] [place], [place] [address] Meenu Bautista Neutrophils/100 WBC (Bld) 70.0 % Normal 43.0-75.0 [facility] Comment on above: Performed By: #### C BC #### [facility] [address] [place], [place] [address] Meenuanna Bautista Platelet mean volume (Bld) [Entitic vol] 9.5 fL Normal 9.5-13.5 [facility] Comment on above: Performed By: #### C BC #### [facility] [address] [place], [place] [address] Meenu Lily PLT 186 103/ul Normal 150-450 [facility] Comment on above: Performed By: #### C BC #### [facility] [address] [place], [place] [address] Meenu Lily RBC 5.55 106/ul Critically high 4.20-5.40 [facility] Comment on above: Performed By: #### C BC #### [facility] [address] [id number] Meenu Lily WBC 14.4 103/ul Critically high 4.0-11.0 [facility] Comment on above: Performed By: #### C BC #### [facility] [address] [place], [place] [address] Meenu Lily CULTURE BLOODon 07-19-2021 Microscopic examination of blood, culture Culture Observations: NO GROWTH AT 5 DAYS. Normal The [facility] Comment on above: Performed By: #### C MP #### [facility] [address] [place], [place] [address] Dr. Hai Williamson PROF CHEM 8 (BAS METB)on Anion gap [Moles/Vol] 13.0 mmol/L Normal [facility] Comment on above: Performed By: #### B MP #### [facility] [address] [place] [address] Meenu Lily Calcium [Mass/Vol] 9.2 mg/dL Normal 8.4-10.2 [facility] Comment on above: Performed By: #### B MP #### [facility] [address] [place] [address] Meenu Lily Chloride [Moles/Vol] 100 mmol/L Normal 98-107 [facility] Comment on above: Performed By: #### B MP #### [facility] [address] [place] [address] Meenu Lily CO2 [Moles/Vol] 28.3 mmol/L Normal 22.0-30.0 [facility] Comment on above: Performed By: #### B MP #### [facility] [address] [place], [place] [address] Meenu Lily Creatinine [Mass/Vol] 0.89 mg/dL Normal 0.52-1.04 [facility] Comment on above: Performed By: #### B MP #### [facility] [address] [place], [place] [address] Meenu Lily EGFR-AF [place]ORE[place] >60 Normal >=60 [facility] Comment on above: Performed By: #### B MP #### [facility] [address] [place], [place] [address] Meenu Lily EGFR-NON AF [place]ORE[place] >60 Normal >=60 [facility] Comment on above: Performed By: #### B MP #### [facility] [address] [place], [place] [address] Meenu Lily Glucose [Mass/Vol] 377 mg/dL Critically high 74-106 [facility] Comment on above: Performed By: #### B MP #### [facility] [address] [place], [place] [address] Meenu Lily Potassium [Moles/Vol] 4.3 mmol/L Normal 3.4-5.0 [facility] Comment on above: Performed By: #### B MP #### [facility] [address] [place] [address] Meenu Lily Sodium [Moles/Vol] 137 mmol/L Normal 137-145 [facility] Comment on above: Performed By: #### B MP #### [facility] [address] [place], [place] [address] Meenu Lily Urea nitrogen [Mass/Vol] 16.0 mg/dL Normal 7.0-17.0 [facility] Comment on above: Performed By: #### B MP #### [facility] [address] [place] [address] Meenu Lily Urea nitrogen/Creatinine [Mass ratio] 18.0 mg/mg Normal [facility] Comment on above: Performed By: #### B MP #### [facility] [address] [place], [place] [address] Meenu Lily Vital Signs Date Time Vital Sign Value Performing Clinician Edouardi wilmer 11-30-2023 10:24-0500 Diastolic blood pressure 76 mm[Hg] Jose Lopez [facility] 11-30-2023 10:24-0500 Heart rate 90 /min Jose Lopez [facility] 11-30-2023 10:24-0500 Respiratory rate 16 /min Jose Lopez [facility] 11-30-2023 10:24-0500 SaO2% (BldA) [Mass fraction] 96 % Jose Lopez [facility] 11-30-2023 10:24-0500 Systolic blood pressure 140 mm[Hg] Jose Lopez [facility] 11-30-2023 08:59-0500 Body temperature 97.88 [degF] Jose Lopez [facility] 11-30-2023 08:59-0500 Diastolic blood pressure 94 mm[Hg] Jose Lopez [facility] 11-30-2023 08:59-0500 Heart rate 107 /min Jose Lopez [facility] 11-30-2023 08:59-0500 Respiratory rate 18 /min Jose Lopez [facility] 11-30-2023 08:59-0500 SaO2% (BldA) [Mass fraction] 98 % Jose Lopez [facility] 11-30-2023 08:59-0500 Systolic blood pressure 146 mm[Hg] Jose Lopez [facility] Encounters Encounter Date Encounter Type Care Provider Facility Start: 12-07-2023 ambulatory Kevin LEONARD Facility :[facility] Start: 12-02-2023 ambulatory Kevin LEONARD Facility:[facility] Start: 11-30-2023 End: 11-30-2023 Emergency department patient visit Jose Jessica Facility:[facility] Start: 11-30-2023 End: 11-30-2023 Emergency department patient visit Jose Lopez [facility] Start: 03-18-[address] LI GREENWOOD Facility : Start: 02-28-2022 End: 03-01-[address] LI GREENWOOD Facility:[facility] Start: 01-29-2022 End: 01-30-[address] IL GREENWOOD Facility:[facility] Start: 01-28-2022 Encounter for genera l adult medical examination without abnormal findings DR LI GREENWOOD [facility] Start: 01-24-2022 End: 01-25-[address] LI GREENWOOD Facility:[facility] Start: 01-24-2022 End: 01-25-2022 Encounter for general adult medical examination without abnormal findings DR LI GREENWOOD Facility:[facility] Start: 12-19-2021 End: 12-19-[address] LI GREENWOOD Facility:[facility] Start: 07-19-2021 End: 07-19-[address] LI GREENWOOD Facility:[facility] Payers Date Payer Category Payer Unknown [id number] 2.16.84 [id number] 1970 Unknown [id number] 2.16.84 [id number] 1971 Unknown [id number] 2.16.84 [id number] 1971 Unknown [id number] 2.16.84 [id number] 1971 Unknown [id number] 2.16.84 [id number] 1971 Unknown [id number] 2.16.84 [id number] 1971 Unknown [id number] 2.16.8 [id number] 1971 Unknown [id number] 2.16.8 [id number] 1971 Unknown [id number] 2.16.8 [id number] 1971 Unknown [id number] 2.16.8 [id number] 1959 Self-pay [id number] 1958 Unknown [id number] Functional Status Date Assessment Result Facility 11-30-2023 Functional Status N/A [facility] Evaluation + Plan note 11-30-2023 Note Date & Type Note Facility 11-30-2023 Evaluation + Plan note Extrac rachelle from: Title:ED Note Author:Jessica Jose Date:11/30 Constipation, acute (K59.00: Constipation, unspecified) Orders: polyethylene glycol 3350, 17 gm, Oral, Daily, X 7 day(s), # 119 gm, Refills(s) 0, Pharmacy: [id number], 170.2, cm, 11/30/23 9:04:00 EST, Height/Length Dosing, 105, kg, 11/30/23 9:04:00 EST, Weight Dosing Communication Order Communication Order Physician to Nursing [facility] Hospital Discharge instructions 11-30-2023 Note Date & Type Note Facility 11-30-2023 Hospital Discharg e instructions Follow Up Care 11/30/2023 08:57:07 With:Kyra Tellez Address: [address] [place] [id number] [phone] Business (1) When:12/03/2023 11:39:59 With:SEGUNDO PLASCENCIA Address: [place] [phone]- Business (1) When:Within 3 Day(s) [facility] Hospital course Narrative Note Date & Type Note Facility Hospital course Narrative No data available for this section [facility] Progress note Note Date & Type Note Facility Progress note No data available for this section [facility] Summary Purpose Family History No Family History Records FoundNo Family History Records Found No data available for this section No Family History Records Found Advance Directives No Advanced Directives Records FoundNo Advanced Directives Records FoundNo Advanced Directives Records Found Additional Source Comments INFORMATION SOURCE (unrecogn ized section and content) DATE CREATED AUTHOR 03/20/2022 [facility] DATE CREATED AUTHOR AUTHOR'S ORGANIZ ATION 11/30/2023 [facility] DATE CREATED AUTHOR AUTHOR'S ORGANIZ ATION 12/03/2023 Mark Haddad [facility] Patient Care team informatio n (unrecognized section and content) Personnel Name: SEGUNDO PLASCENCIA MD Address: Address: [address] FOR RECORDS PERTAINING TO PATIENTS WHO ARE OR HAVE BEEN ENROLLED IN A CHEMICAL DEPENDENCY/SUBSTANCEABUSE PROGRAM, SOME INFORMATION MAY BE OMITTED. This clinical summary was aggregated from multiple sources. Caution should be exercised in using it in the provision of clinical care. This summary normalizes information from multiple sources, and as a consequence, information in this document may materially change the coding, format and clinical context of patient data. In addition, data may be omitted in some cases. CLINICAL DECISIONS SHOULD BE BASED ON THE PRIMARY CLINICAL RECORDS. [employer] provides no warranty or guarantee of the accuracy or completeness of information in this document.
[2023-12-04] MEDS: HYDROCODONE/ACET 5-325 MG TABLET 1 TAB PO (17:49)
[2023-12-04] MEDS: LIDOCAINE HCL 1% 200 MG/20 ML MDV 15 ML INJ (17:52)
--- NOTE | 2023-12-04 18:33 | ED.GENADUL1 ---
HPI - General Adult General Chief complaint: Skin/Abscess/Foreign Body Stated complaint: BOIL ON BOTTOM Time Seen by Provider: 12/04/23 17:18 Source: patient Mode of arrival: walk-in History of Present Illness HPI narrative: 53-year-old female presents with chief complaint of buttock abscess. Patient was seen here in emergency room over [place] and had a incision and drainage of this abscess. She completed antibiotics and states the abscess has returned. Patient has a history of abscess. She states she also has one in her axillary area has been self draining. Despite continued antibiotics patient does have this left buttock abscess. Patient denies fevers or chills. She does have an appointment scheduled for Gen. surgery with Dr. pires in his office on December 07 in the morning. Related Data Home Medications Medication Instructions Recorded Confirmed glipizide 5 mg tablet 5 mg PO BID 11/21/23 11/21/23 Allergies Allergy/AdvReac Type Severity Reaction Status Date / Time bactrim Allergy Intermediate Hives Uncoded 11/21/23 21:23 Review of Systems ROS Narrative All Systems are negative except as noted/marked.All systems reviewed and otherwise negative Exam Narrative Exam Narrative: Nurses note and vital signs reviewed and patient is not hypoxic. General: The patient appears well and in no apparent distress. Patient is resting comfortably on cart. Skin: Warm, dry, no pallor noted. Left buttock abscess 2 x 3 cm of induration, perianal area and not involved at this time. Head: Normocephalic, atraumatic Respiratory: Patient is in no distress, no accessory muscle use, lungs are clear to auscultation, no wheezing, rales or rhonchi Back: non-tender, no CVA tenderness bilaterally to percussion. GI: Normal bowel sounds, no tenderness to palpation, no masses appreciated. No rebound, guarding, or rigidity noted. Musculoskeletal: The patient has no evidence of calf tenderness, no pitting edema, symmetrical pulses noted bilaterally Neurological: A&O x4, normal speech Psychiatric: Cooperative Constitutional Vital Signs, click to edit/add: Last Vital Signs Temp 98.4 F 12/04/23 17:15 Pulse 103 H 12/04/23 17:15 Resp 18 12/04/23 17:15 BP 138/68 12/04/23 17:15 Pulse Ox 98 12/04/23 17:15 O2 Del Method Room Air 12/04/23 17:15 Course Vital Signs Vital signs: Vital Signs Temperature 98.4 F 12/04/23 17:15 Pulse Rate 103 H 12/04/23 17:15 Respiratory Rate 18 12/04/23 17:15 Blood Pressure 138/68 12/04/23 17:15 Pulse Oximetry 98 12/04/23 17:15 Oxygen Delivery Method Room Air 12/04/23 17:15 Temperature 98.4 F 12/04/23 17:15 Pulse Rate 103 H 12/04/23 17:15 Respiratory Rate 18 12/04/23 17:15 Blood Pressure 138/68 12/04/23 17:15 Pulse Oximetry 98 12/04/23 17:15 Oxygen Delivery Method Room Air 12/04/23 17:15 Medical Decision Making MDM Narrative Medical decision making narrative: 53-year-old female presented here with chief complaint of an abscess the buttock. 2 x 3 cm noted on examination initially.. Anesthetized locally with let solution followed by 3 mL of lidocaine. Small incision made with an eleven blade the center area of the abscess. Abscess easily drained. Area was then probed with forceps. Moderate amount of purulent drainage was expressed from the area. Area was irrigated with Hibiclens normal saline. Quarter-inch packing then loosely placed. Dressing applied by nursing staff. Patient's well versed in those had a change packing her helps her frequently. Patient has a follow-up appointment with Dr. borges this next Wednesday. She is told continue with antibiotics. Cultures have been obtained. Patient will be discharged from pain medication and follow-up as directed. Reasons to return to the emergency room were discussed Differential Diagnosis Differential Diagnosis: Abscess, pilonidal abscess Medical Records Medical records reviewed: Yes I reviewed the patient's medical records Lab Data Lab results reviewed: Yes I reviewed the patient's lab results Discharge Plan Discharge Chief Complaint: Skin/Abscess/Foreign Body Clinical Impression: Abscess of skin or subcutaneous tissue Patient Disposition: Home, Self-Care Time of Disposition Decision: 18:25 Condition: Good Prescriptions / Home Meds: No Action glipizide 5 mg tablet 5 mg PO BID Instructions: Abscess Follow-up (ED), Abscess Incision and Drainage (DC), Incision and Drainage (ED) Stand Alone Forms: Portal Instructions Referrals: Chapin Greenwood MD [Primary Care Provider] - 1 week Kevin Borges MD [Physician] - 12/07/23
== END 2023-12-04 18:37 | disposition home or self-care (01) ==
PROVIDERS: Emergency Provider Emergency Medicine Emergency Medical Services; PCP Family Medicine
DX: L02.31 Cutaneous abscess of buttock (principal); Z79.84 Long term (current) use of oral hypoglycemic drugs
CPT/HCPCS: 10060; 87070; 87076; 99284

== ENCOUNTER 2025-09-23 16:38 | Emergency (ER) | payer BC, SELFPAY ==
--- OUTSIDE RECORDS SUMMARY | 2025-04-19 12:00 | XMS_ITS ---
Author Organization [facility] [place] Address [address] [place] [address] Care Team Providers Care Tool Room Supervisor Name Role Phone Nikolay Greenwood Primary Care Provider REASON FOR VISIT annual Encounters Encounter Location Date Provider [facility] [address] [place] [address] 04/19/2025 Nikolay Greenwood Plan Of Treatment No Information Progress Notes * Bonny ABEBEDOB: [birth year] (55 yo F)Acc No.[id number]:04/19/2025 UNLOCKED PROGRESS NOTE Progress Note Patient: Bonny ANGUIANO :?Chapin NUNES), MDDOB:1970???Age: 54 Y???Sex:FemaleDate:04/19/2025Phone:[phone]:[address] [place] [address], [address], [place] Subjective: * Chief Complaints: * 1 . Annual. * Medical History: Objective: * Vitals: Assessment: Plan: * Treatment: * * Electronic signature of Nikolay Greenwood MD, [phone] on 09/23/2025 at 04:45 PM EDT Sign off status: PendingVisit Status:?N/S N/C (No Show/No Charge) * Provider: German Greenwood MD (TTC) Date: 0 04/19/2025 Generated for Printing/Faxing/eTransmitting on:?09/23/2025 04:45 PM EDT
[2025-09-23 16:42] VITALS: BP 175/77; PULSE 94; TEMP 36.8; O2SAT 94; BMI 26.8
--- OUTSIDE RECORDS SUMMARY | 2025-09-23 16:44 | XMS_ITS | CCD ---
Author Organization [facility] Care Team Providers Care Apparel Manager Name Role Phone KRYSTYNA, DR JEFFERSON Admitting Unavailable KRYSTYNA, DR JEFFERSON Attending Unavailable WOLFGANGY, DR JEFFERSON Primary Care Unavailable KRYSTYNA, DR JEFFERSON Consulting Unavailable KRYSTYNA, DR JEFFERSON Admitting Unavailable KRYSTYNA, DR JEFFERSON Attending Unavailable HOY, DR JEFFERSON Primary Care Unavailable HOY, DR JEFFERSON Consulting Unavailable WEST, DR NANCY Alvarez Consulting Unavailable KRYSTYNA, DR JEFFERSON Admitting Unavailable KRYSTYNA, DR JEFFERSON Attending Unavailable KRYSTYNA, DR JEFFERSON Primary Care Unavailable KRYSTYNA, DR JEFFERSON Consulting Unavailable KRYSTYNA, DR JEFFERSON Primary Care Unavailable DEVYN DAVIES Admitting Unavailable DEVYN DAVIES Attending Unavailable KOTA CABRERA Consulting Unavailable KRYSTYNA, DR JEFFERSON Admitting Unavailable KRYSTYNA, DR JEFFERSON Attending Unavailable KRYSTYNA, DR JEFFERSON Primary Care Unavailable HOY, DR JEFFERSON Admitting Unavailable HOEphraim, DR JEFFERSON Attending Unavailable KRYSTYNA, DR JEFFERSON Primary Care Unavailable KRYSTYNA, DR JEFFERSON Consulting Unavailable Jose Lopez Attending Unavailable SEGUNDO PLASCENCIA Primary Care Physician Li Greenwood Primary Care Physician [phone] Shadia Correa Attending Unavailable Lucien Oropeza Attending Unavailable Osiel Bradford Attending Unavailable Kevin Sadler Attending UnavailKevin Herring Attending Unavailann e Allergies Allergy ClassificationReported Allergen(s)Allergy TypeDate of OnsetReaction(s) Facility (1 source)oxyCODONEDrug AllergyThe [facility] Repository (5 sources)Sulfamethoxazole / Trimethoprim; Translations: [Bactrim]Drug Allergy 88-33-8277Jkv [facility] Repository (8 sources)Sulfamethoxazole / Trimethoprim; Translations: [sulfamethoxazole-trimethoprim]Drug AllergyUrticaria (disorder)[facility] Medications Current Medications MedicationDrug Class(es)DatesSig (Normalized)Sig (Original)albuterol 0.83 mg/ml inhalation solution (14 sources)beta2-Adrenergic AgonistStart: 51-21-0422hkqa 2.5 mg by inhalation four times dailyalbuterol 0.083% Inh Renata 3 mL 2.5 mg, 3 mL, NEB, QID Shortness of breath or wheezing, Refill(s) 0 Start Date: 12/06/23 Status: OrderedStart: 78-50-0466juyj 2 puff(s) by inhalation four times dailyProAir RespiClick 90 mcg/inh inhalation powder 2 puff(s), Inhalation, QID Shortness of breath or whe ezing, Refill(s) 0, 0 Refill(s) Start Date: 12/06/23 Status: Orderedamoxicillin 500 mg oral capsule (1 source)Penicillin-class AntibacterialStart: 12-31-2024 End: 55-90-4125rlcs 1 capsule by mouth three times dailyamoxicillin 500 mg Cap 500 mg = 1 cap(s), Oral, TID, X 7 day(s), # 21 cap(s), Refills(s) 0, Pharmacy: [facility] #[id number], 170, cm, 12/31/24 12:05:00 EST, Height/Length Dosing, 101.8, kg, 12/31/24 12:05:00 EST, Weight Dosing Start Date: 12/31/24 Stop Date: 01/07/25 Status: Orderedcitalopram 20 mg oral tablet (1 source)Serotonin Reuptake InhibitorStart: 71-81-3710gtzg 1 tablet by mouth once dailycitalopram 20 mg Tab 20 mg = 1 tab(s), Oral, Daily, Refills(s) 0 Start Date: 12/06/23 Status: Orderedfluconazole 150 mg oral tablet (2 sources)Azole AntifungalStart: 28-19-0456girv 1 tablet by mouth every week Diflucan 150 mg Tab See Instructions, 1 tab po now. May repeat single dose in one week if not resolved., # 2 tab(s), Refills(s) 0, Pharmacy: [facility]/pharmacy #[id number], 170, cm, 12/19/23 10:40:00 EST, Height/Length Dosing, 100.7, kg, 12/19/23 10:40:00 EST, Weight Dosing Start Date: 12/19/23 Status: Orderedfluticasone / vilanterol (7 sources)Corticosteroid, beta2-Adrenergic AgonistStart: 97-38-4316orax 1 puff(s) by inhalation once dailyfluticasone-vilanterol 100 mcg-25 mcg inhalation powder 1 puff(s), Inhalation, Daily, Refill(s) 0 Start Date: 12/06/23 Status: Orderedfurosemide 40 mg oral tablet (1 source)Loop DiureticStart: 50-28-9075yrra 1 tablet by mouth once daily furosemide 40 mg Tab 40 mg = 1 tab(s), Oral, Daily, Refills(s) 0 Start Date: 12/06/23 Status: Orderedglimepiride 4 mg oral tablet (7 sources)SulfonylureaStart: 82-26-3273wdzr 2 tablets by mouth once daily glimepiride 4 mg Tab 8 mg = 2 tab(s), Oral, Daily, Refills(s) 0 Start Date: 12/06/23 Status: OrderedlevoFLOXacin 5 mg/ml ophthalmic solution (1 source)Quinolone AntimicrobialStart: 12-31-2024 End: 56-71-1741vhbr 1 drop(s) into the eye(s) every four hourslevofloxacin Opth 0.5% Renata 1 drop(s), Eye-Both, q4hr for 7 day(s), 5 mL, Refill(s) 0, [id number], 170, cm, 12/31/24 12:05:00 EST, Height/Length Dosing, 101.8, kg, 12/31/24 12:05:00 EST, Weight Dosing Start Date: 12/31/24 Stop Date: 01/07/25 Status: OrderedmetFORMIN hydrochloride 500 mg oral tablet (1 source)BiguanideStart: 64-38-5752wvqi 1 tablet by mouth twice dailymetformin 500 mg Tab 500 mg = 1 tab(s), Oral, BID, Refills(s) 0 Start Date: 12/06/23 Status: Orderedpolyethylene glycol 3350 33623 mg powder for oral solution (1 source)Osmotic LaxativeStart: 11-30-2023 End: 68-88-2154wull 17 g by mouth once dailyMiralax 3350 17 gram packet 17 gm, Oral, Daily, X 7 day(s), # 119 gm, Refills(s) 0, Pharmacy: [facility] #[id number], 170.2, cm, 11/30/23 9:04:00 EST, Height/Length Dosing, 105, kg, 11/30/23 9:04:00 EST,Weight Dosing Start Date: 11/30/23 Stop Date: 12/07/23 Status: Orderedpolymyxin b 36072 unt/ml / trimethoprim 1 mg/ml ophthalmic solution (1 source)Dihydrofolate Reductase Inhibitor Antibacterial, Polymyxin-class AntibacterialStart: 12-16-2024 End: 02-01-5967Mqxscioz 10 mL Soln-Opth 1 drop(s), OPTH, q3hr for 7 day(s), 10 mL, Refill(s) 0, [facility] #[id number], 170, cm, 12/16/24 16:24:00 EST, Height/Length Dosing, 101.8, kg, 12/16/24 16:24:00 EST, Weight Dosing Start Date: 12/16/24 Stop Date: 12/23/24 Status: Xkiyewn49 actuat tiotropium 0.0025 mg/actuat inhalation spray (7 sources)AnticholinergicStart: 71-99-7450Ncldkqj Respimat 10 ACT 2.5 mcg/inh inhalation aerosol = 2 puff(s), Inhalation, Daily, Refills(s) 0Start Date: 04/05/23 Status: Ordered Completed/Discontinued Medications MedicationDrug Class(es)DatesSig (Normalized)Sig (Original)atorvastatin 10 mg oral tablet (1 source)HMG-CoA Reductase InhibitorStart: 98-73-6737tiad 1 tablet by mouth once dailySITagliptin 100 mg oral tablet (1 source)Dipeptidyl Peptidase 4 InhibitorStart: 77-41-4538covj 1 tablet by mouth once dailyspironolactone 50 mg oral tablet (1 source)Aldosterone AntagonistStart: 51-01-4258jaao 1 tablet by mouth once daily Problems Active Problems Problem ClassificationProblemDateDocumented DateEpisodic/ChronicAnal and rectal conditions (8 sources)Rectal abscess ; Translations: [Rectal abscess]Onset: 12-07-2023 EpisodicChronic obstructive pulmonary disease and bronchiectasis (8 sources)Chronic obstructive pulmonary disease, unspecified; Translations: [Chronic obstructive lung disease]Onset: 161911-03-0131IzitqsaFhvalldv mellitus with complications (1 source)Type 2 diabetes mellitus with hyperglycemia; Translations: [TYPE 2 DM W/HYPERGLYCEMIA]Onset: 57-30-0325XnuiexiLziyjyzc mellitus without complication (11 sources)Type 2 diabetes mellitus without complications; Translations: [Diabetes mellitus]Onset: 21-59-0895ZszooqkLarybyalw of lipid metabolism (14 sources)Hyperlipidemia; Translations: [Hypertriglyceridemia]12-06-2023 ChronicEssential hypertension (7 sources)Hypertensive hwswdtiq69-51-3472PqttrvwAotmxgugyvto; infection of eye (except that caused by tuberculosis or sexually transmitteddisease) (2 sources)Acute conjunctivitis of right eye; Translations: [Unspecified acute conjunctivitis, right eye]Onset: 27-49-7421JdoqcppoQcnjdrh (2 sources)Candidal vulvovaginitis; Translations: [Acute candidiasis of vulva and vagina]Onset: 42-66-3577XpojvtspAuka wounds of extremities (1 source)Laceration of left lower leg; Translations: [Laceration without foreign body, left lower leg, initial encounter]Onset: 79-73-9407YirclxpdQqfuh aftercare (1 source)Other retirement (current) drug therapy; Translations: [OTH SNF CURRENT DRUG THERAPY]Onset: 73-08-2911UakonrsqQjvjt aftercare (1 source)Surgical follow-up; Translations: [Encounter for removal of sutures] Onset: 43-83-4679LskwwlpvLaauk and ill-defined heart disease (7 sources)Bilateral enlargement of tmiad89-08-9425VrulnfjEgalh and ill-defined heart disease (7 sources)Tchcnigppnqd35-86-2470CqgflixIfjrk and ill-defined heart disease (7 sources)Left ventricular -89-2342AnouzglHkbuv gastrointestinal disorders (1 source)Constipation, unspecified; Translations: [Constipation, unspecified] Onset: 54-42-1659MzwfxupyEgmke hematologic conditions (1 source)Secondary polycythemia; Translations: [SECONDARY POLYCYTHEMIA]Onset: 46-69-8446JreshaemYmaii nutritional; endocrine; and metabolic disorders (3 sources)Obese class I; Translations: [Body mass index (BMI) 34.0-34.9, adult] Onset: 96-01-1433JluvxpkTnsba nutritional; endocrine; and metabolic disorders (7 sources)Body mass index 30+ - dgdanip92-63-4719BdvtxkdJywxa nutritional; endocrine; and metabolic disorders (7 sources)Morbid ilvhogu05-54-3065MfpmhjiJzepx screening for suspected conditions (not mental disorders or infectious disease) (4 sources)Encounter for screening mammogram for malignant neoplasm of breast; Translations: [ENC SCR MAMMO MALIG NEOPLASM BREAST]Onset: 51-93-6648Nbzigjfp Other upper respiratory infections (1 source)Acute sinusitis, unspecified; Translations: [ACUTE SINUSITIS UNSPECIFIED]Onset: 99-54-8406JkcffyflUzwufd media and related conditions (1 source)Otitis media; Translations: [Otitis media, unspecified, left ear] Onset: 27-23-5166PlynibriFsjhsvmvt heart disease (7 sources)Pulmonary gaabmigefbkh72-47-5712UjcwqkjAcphgkta codes; unclassified (1 source)Family history of malignant neoplasm of breast; Translations: [FAMILY HX MALIG NEOPLASM OF BREAST]Onset: 14-02-2228XxxwnmguHqubfiib codes; unclassified (1 source)Family history of malignant neoplasm of bladder; Translations: [FAM HX MALIGNANT NEOPLASM BLADDER]Onset: 24-67-2876ZpytcuvmDwdeaipl codes; unclassified (1 source)Family history of malignant neoplasm of digestive organs; Translations: [FAM HX MALIG NEOPLASM DIGESTIV ORGN]Onset: 00-23-9607Pdgsyvbl Residual codes; unclassified (7 sources)Npfhrtwo92-65-4971ChnysoldMibtljyr codes; unclassified (1 source)Problem situation; Translations: [Other problems related to lifestyle] Onset: 22-81-6544UcbilhxxNfgfisqektbh (3 sources)CONTACT W/AND (SUSP) EXPOS COVID-19; Translations: [CONTACT W/AND (SUSP) EXPOS COVID-19]Onset: 12-22-2021 Past or Other Problems Problem ClassificationProblemDateDocumented DateEpisodic/ChronicOther aftercare (1 source)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 12/31/2024 12:03 Chief Complaint pt presents with cough since with congestion and eye drainage. right eye red History of Present Illness Patient is a 54-year-old female presents today for evaluation of her eye drainage as well as cough and congestion has been going on since . She states that she had a infection with pinkeye about 2 weeks ago that cleared up. It returned today and she woke up with really thick eye drainage onher right greater than left eye. She also notes that she is having worsening cough and congestion. Denies any fevers, body aches, chills. Denies any chest pain, shortness of breath, dyspnea. Denies any nausea, vomiting, abdominal pain. Did not injure the eye or get anything in the eye. Review of Systems No other aggravating or relieving factors no other associated symptoms no other prior treatments orcomplaints. Family: Reviewed and noncontributory Social: lives at home Review of systems negative unless otherwise specified in the HPI. Physical Exam Vitals & Measurements T: 36.8 ???C(Oral) HR: 88(Peripheral) RR: 16 BP: 164/82 SpO2: 96% HT: 170 cm WT: 101.8 kg BMI: 35.22 Nurse's notes and vital signs reviewed. General: Alert, no acute distress, patient resting comfortably Patient is not toxic or lethargic. Skin: Warm, intact, no pallor noted. There is no evidence of rash at this time. Head: Normocephalic, atraumatic Eye: PERRLA, EOMI. Conjunctival injection noted bilaterally right greater than left with some mild purulent drainage noted to the right eye. Ears, Nose, Throat: Moist mucous membranes. No posterior pharyngeal erythema no exudate swelling shift or mass. No trisumus no stridor. There is injection and erythema with posterior effusion and pusnoted to the left TM. No evidence of perforation. Canal is unremarkable. Right tympanic membrane unremarkable with no injection erythema no posterior effusions perforation or pus. Neck: No meningeal signs. Cardio: Regular Rate and Rhythm with normal peripheral perfusion Respiratory: No acute distress, no stridor, no retractions. CTA bilaterally. Abdomen: Soft, nontender, no masses detected. No rebound, guarding, or rigidity Neurological: Appropriate for age Psychiatric: Cooperative Medical Decision Making Patient is a 54-year-old female presents today for evaluation of her eye drainage as well as cough and congestion has been going on since . She had pinkeye about 2 weeks ago that cleared up and is now having repeat symptoms. She is also having worsening cough and congestion. Denies any other systemic signs or symptoms. On exam the patient is afebrile nontoxic-appearing. SpO2 96% on room air. No posterior pharyngeal erythema or edema. There is injection erythema posterior fusion and pus noted to the left TM. Right TM unremarkable. PERRLA, EOMI. Conjunctival injection noted bilaterally right greater than left with some mild purulent drainage noted to the right eye. CTA to bilateral lung lawrence. Abdomen soft nontender. Patient was negative for influenza and COVID. 2 view chest x-ray interpreted by radiology is negative for any acute cardiopulmonary process. Patient likely has bacterial conjunctivitis of the right greater than left eye as well as otitis media of the left ear. Willstart her on amoxicillin for her otitis media and will provide her with Diflucan because she gets yeast infections with antibiotics. Will start her on levofloxacin ophthalmic drops given she just wason Polytrim eyedrops. Should be discharged home with close follow-up with her PCP to ensure she is getting better. We discussed if she has new or worsening symptoms she should promptly return to the ED for reevaluation. Return to ED precautions were reviewed with the patient at length. Assessment/Plan Bacterial conjunctivitis (H10.9: Unspecified conjunctivitis) Otitis media of left ear (H66.92: Otitis media, unspecified, left ear) Orders: amoxicillin, 500 mg = 1 cap(s), Oral, TID, X 7 day(s), # 21 cap(s), Refills(s) 0, [id number] 170, cm, 12/31/24 12:05:00 EST, Height/Length Dosing, 101.8, kg, 12/31/24 12:05:00 EST,Weight Dosing fluconazole, 150 mg = 1 tab(s), Oral, Once, # 1 tab(s), Refills(s) 0, [id number], cm, 12/31/24 12:05:00 EST, Height/Length Dosing, 101.8, kg, 12/31/24 12:05:00 EST, Weight Dosing levofloxacin ophthalmic, 1 drop(s), Eye-Both, q4hr for 7 day(s), 5 mL, Refill(s) 0, [id number] 170, cm, 12/31/24 12:05:00 EST, Height/Length Dosing, 101.8, kg, 12/31/24 12:05:00 EST, Weight Dosing Influenza A&B Ag [place] [place] Chest 2 Views Disposition Plan Patient Discharge Condition Stable Discharge Disposition Home Discharge Prescription List Prescriptions amoxicillin 500 mg Cap, 500 mg= 1 cap(s), Oral, TID levofloxacin Opth 0.5% Renata, 1 drop(s), Eye-Both, q4hr Follow-up With When Contact Information Michelle (more content not included)...[facility] EastComment on above:Result Comment: Electronically Signed By: Jackson Colorado PA-C\.br\Date and Time Signed: 12/31/2515:27 EST\.br\Electronically Co-Signed By: Kevin Sadler DO\.br\Date and Time Co-Signed: 01/01/25 16:30 ESTED Clinical Summaryon [id number] Clinical SummaryED Clinical Summary [place] [id number] ED Clinical Summary Person Information Name: CONRADO ABEBE [facility] Age: 54 Years : 1970 Sex: Female Language: Mongolian PCP: Li Greenwood MD Marital Status: Visit Id: Visit Reason: Red eye; Sinus Pain/Congestion; Cough; CONGESTION Speciality: Acuity: 4 Enc Type: Emergency Med Service: Emergency Arrival: 12/31/2024 11:55:55 Discharge: 12/31/2024 14:38:42 LOS: 000 02:43 Checkin: 12/31/2024 11:55:55 Checkout: 12/31/2024 14:38:42 Dispo Type: Home (Routine DC) EVENTS: Event Name Event Status Request Date/Time Start Date/Time Complete Date/Time Arrive Complete 12/31/2024 11:55:55 12/31/2024 11:55:55 12/31/2024 11:55:55 Document Home Meds Request 12/31/2024 11:55:55 Triage Complete 12/31/2024 11:55:55 12/31/2024 12:05:22 12/31/2024 12:05:22 Registration Complete 12/31/2024 12:00:57 12/31/2024 12:00:57 12/31/2024 12:00:57 Reg Complete Request 12/31/2024 12:00:57 Reg Bed Request Complete 12/31/2024 12:00:57 12/31/2024 12:00:57 12/31/2024 12:00:57 Bed Assign Complete 12/31/2024 12:01:16 12/31/2024 12:01:16 12/31/2024 12:01:16 Dr Exam Complete 12/31/2024 12:01:16 12/31/2024 12:03:55 12/31/2024 12:03:55 RN Exam Complete 12/31/2024 12:01:16 12/31/2024 12:08:19 12/31/2024 12:08:19 Registration Request 12/31/2024 12:03:55 Isolation Screening Request 12/31/2024 12:05:22 Dr Exam Complete 12/31/2024 12:13:29 12/31/2024 12:13:29 12/31/2024 12:13:29 Pending Labs Complete 12/31/2024 13:26:24 12/31/2024 14:12:15 Lab Complete 12/31/2024 13:26:24 12/31/2024 14:12:15 Swab Complete 12/31/2024 13:26:24 12/31/2024 14:12:15 X-Ray Complete 12/31/2024 13:26:24 12/31/2024 13:28:15 12/31/2024 13:48:53 Wet Read Request 12/31/2024 13:48:53 Discharge Complete 12/31/2024 14:33:59 12/31/2024 14:38:49 12/31/2024 14:38:49 Transfer Complete 12/31/2024 14:38:49 12/31/2024 14:38:49 12/31/2024 14:38:49 ADDRESS: [address] [place] [id number] PHYS DOC NOTES: MEDICAL INFORMATION: Prescriptions Given: New Medications [facility] #[id number], [address], [place] [id number], [phone] amoxicillin (amoxicillin 500 mg Cap) 1 Capsules By Mouth 3 times a day for 7 Days. Refills: 0. levofloxacin ophthalmic (levofloxacin Opth 0.5% Renata) 1 Drops Both eyes every 4 hours for 7 Days. Refills: 0. Medications to Continue with No Changes Other Medications albuterol (albuterol 0.083% Inh Renata 3 mL) 3 Milliliter Nebulized inhalation (aerosol) 4 times a dayas needed Shortness of breath or wheezing. albuterol (ProAir RespiClick 90 mcg/inh inhalation powder) 2 Puffs Inhalation 4 times a day as needed Shortness of breath or wheezing. 0 Refill(s). fluticasone-vilanterol (fluticasone-vilanterol 100 mcg-25 mcg inhalation powder) 1 Puffs Inhalationevery day. glimepiride (glimepiride 4 mg Tab) 2 Tablets By Mouth every day. tiotropium (Spiriva Respimat 10 ACT 2.5 mcg/inh inhalation aerosol) 2 Puffs Inhalation every day. PATIENT EDUCATION INFORMATION: Instructions: Otitis Media, Adult; Bacterial Conjunctivitis, Adult Follow up: With: Address: When: Li Greenwood [address] [place], [place] [id number] Business (1) In 3 days 01/03/2025 DIAGNOSIS: Bacterial conjunctivitis; [facility]Norm[facility] Patient Summaryon [id number] Patient SummaryED Patient Summary [address] [address] Patient Discharge Instructions Person Information Name: CONRADO ABEBE Age: 54 Years Arrival Date: 12/31/2024 11:55:55 Discharge Diagnosis: Bacterial conjunctivitis; Otitis media of left ear Primary Care Physician: Li Greenwood MD Provider Information Primary Provider: Kevin Sadler DO Advanced Asphalt Paver Operator:Jackson Colorado PA-C The exam and treatment you received in the Emergency Department were for an urgent problem and are not intended as complete care. It is important that you follow up with a doctor, nurse practitioner,or physician???s assistant professor of dietetics for ongoing care. If your symptoms become worse or you do not improve asexpected and you are unable to reach your usual health care provider, you should return to the Emergency Department. We are available 24 hours a day. CONRADO ABEBE has been given the following list of patient education materials, prescriptions and follow-up instructions: Follow-up Instructions: With: Address: When: Li Bautista[address] [place], [place] [id number] Business (1) In 3 days 01/03/2025 In the event that this physician does not participate in your insurance network, please consult with your insurance company to find a nearby participating provider. Patient Education Materials: Otitis Media, Adult; Bacterial Conjunctivitis, Adult A MESSAGE TO ALL PATIENTS REGARDING OPIOIDS PRESCRIPTION OPIOIDS: WHAT YOU NEED TO KNOW Prescription opioids can be used to help relieve tyjuhoze-ko-ayskwx pain and are often prescribed following a [...] as well, even when taken as directed: ??? Tolerance???meaning you might need to take more of the medication for the same pain relief ??? Physical dependence???meaning you have symptoms of withdrawal when a medication is stopped ??? Increased sensitivity to pain ??? Constipation ??? Nausea, vomiting, and dry mouth ??? Sleepiness and dizziness ??? Confusion ??? Depression ??? Low levels of testosterone that can result in lower sex drive, energy, and strength ??? Itching and sweating RISKS ARE GREATER WITH: ??? History of drug misuse, substance use disorder, or overdose ??? Mental health conditions (such as depression or anxiety) ??? Sleep apnea ??? Older age (65 years and older) ??? Avoid alcohol while taking prescription opioids. Also, unless specifically advised by your health care provider, medications to avoid include: ??? Benzodiazepines (such as Xanax or Valium) ??? Muscle relaxants (such as Soma or Flexeril) ??? Hypnotics (such as Ambien or Lunesta) ??? Other prescription opioids KNOW YOUR OPTIONS Talk to your health care provider about ways to manage your pain that don???t involve prescription opioids. Some of these options may actually work better and have fewer risks and side effects. Options may include: ??? Pain relievers such as acetaminophen, ibuprofen, and naproxen ??? Some medication that are also used for depression or seizures ??? Physical therapy and exercise ??? Cognitive behavioral therapy, a psychological, goal-directed approach, in which patients learn how to modify physical, behavioral, and emotional triggers of pain and stress. IF YOU ARE PRESCRIBED OPIOIDS FOR PAIN: ??? Never take opioids in greater amounts or more often than prescribed. ??? Follow up with your primary health care provider. o Work together to create a plan on how to manage your pain. o Talk about ways to help manage your pain that don???t involve prescription opioids. o Talk about any and all concerns and side effects. ??? Help prevent misuse and abuse o Never sell or share prescription opioids. o Never use another person???s prescription opioids. ??? Store prescription opioids in a secure place and out of reach of others (this may include visitors, children, friends, and family). ??? Safely dispose of unused prescription opioids: Find your community drug take-back program or your pharmacy mail-back program, or flush them down the toilet, following guidance from the Food and Drug Administration (www.fda.gov/Drugs/ResourcesForYou). ??? Visit www.cdc.gov/drugoverdose to learn about the risks of opioids abuse and overdose. ??? If you believe yo (more content not included)...[facility] EastInfluenza A&B Agon [id number] A AgNegativeNormalNegativeBrecksville Va / Crille HospitalComment on above:Performed By: #### [id number] #### [facility] [address], [place] [address]Yhbpuswbed B AgNegativeNormalNegativeBrecksville Va / Crille HospitalComment on above:Result Comment: Test sensitivity and specificity vary for age group, specimen type, antigen types, and prevalence of disease. Test results must be evaluated in conjunction with other clinical data available to the physician. Individuals who received nasally administered Influenza A vaccine may havepositive test results up to 3 days after vaccination.Performed By: #### [id number] #### [facility] [address], [place] [address]EELWC OTHER TESTSOrdered By: Lisette Figueroa on 12-31-2024 Influenzae A AgNegative (12/31/24 1:47 PM)NormalNegative[facility] [place] SeroInfluenzae B AgNegative 1 (12/31/24 1:47 PM)NormalNegativeMER[facility] [place] SeroComment on above:Interpretive Data: Test sensitivity and specificity vary for age group, specimen type, antigen types, and prevalence of disease. Test results must be evaluated in conjunction with other clinical dataavailable to the physician. Individuals who received nasally administered Influenza A vaccine may have positive test results up to 3 days after vaccination.Rapid COV Int NEG CtlPass (12/31/24 1:47 PM)NormalFT Man SeroRapid COV Int POS CtlPass (12/31/24 1:47 PM)NormalMER[facility] [place] SeroSARS-CoV+SARS-CoV-2 (COVID-19) Ag IA.rapid Ql (Resp)Not Detected 2 (12/31/24 1:47 PM)NormalNot DetectedMERCY HOS[facility] [place] Man SeroComment on above:Interpretive Data: The IID System for Rapid Detection of SARS-CoV-2 is a chromatographic digital immunoassay intended for the direct and qualitative detection of SARS-CoV-2 nucleocapsid antigens in nasal swabs from individuals who are suspected of COVID-19 by their healthcare provider withinthe first five days of the onset of symptoms. Negative results should be treated as presumptive, do not rule out SARS-CoV-2 infection and should not be used as the sole basis for treatment or patient management decisions, including infection control decisions. Negative results should be considered in the context of a patient s recent exposures, history and the presence of clinical signs and symptoms consistent with COVID-19, and confirmed with a molecular assay, if necessary, for patient management. For in vitro diagnostic use. In the [place], only for use under an Emergency Use Authorization. In the [place], this test has not been FDA cleared or approved; this test has been authorized by FDA under an EUA for use by authorized laboratories; use by laboratories certified under the CLIA, 42 U.S.C. 263a, that meet requirements to perform moderate, high, or waived complexity tests and at the Point of Care (POC), i.e., in patient care settings operating under a CLIA Certificate of Waiver, Certificate of Compliance, or Certificate of Accreditation. This test has been authorized only for the detection of proteins from SARS-CoV-2, not for any otherviruses or pathogens; and, in the [place], this test is only authorized for the duration of the declaration that circumstances exist justifying the authorization of emergency use of in vitro diagnostics for detection and/or diagnosis of the virus that causes COVID-19 under Section 564(b)(1) of the Act,21 U.S.C. 360bbb-3(b)(1), unless the authorization is terminated or revoked sooner.Rapid COVID Antigen ([facility] [place])on [id number] COV Int NEG CtlPassNormSt. Mary's Medical Center, Ironton CampusComment on above:Performed By: #### [id number] #### [facility] [address], [place] [address]Ludsp COV Int POS CtlPassNoKind[facility] Comment on above:Performed By: #### [id number] #### [facility] [address], [place] [address]BEWW-FpV+SARS-CoV-2 (COVID-19) Ag IA.rapid Ql (Resp)Not detectedNormalNot DetectedBrecksville Va / Crille HospitalComment on above:Result Comment: The IID??? System for Rapid Detection of SARS-CoV-2 is a chromatographic digital immunoassay intended for the direct and qualitative detection of SARS-CoV-2 nucleocapsid antigens in nasal swabs from individuals who are suspected of COVID-19 by their healthcare provider withinthe first five days of the onset of symptoms. Negative results should be treated as presumptive, do not rule out SARS-CoV-2 infection and should not be used as the sole basis for treatment or patient management decisions, including infection control decisions. Negative results should be considered in the context of a patient???s recent exposures, history and the presence of clinical signs and symptoms consistent with COVID-19, and confirmed with a molecular assay, if necessary, for patient management. For in vitro diagnostic use. In the [facility], only for use under an Emergency Use Authorization. In the [facility], this test has not been FDA cleared or approved; this test has been authorized by FDA under an EUA for use by authorized laboratories; use by laboratories certified under the CLIA, 42 U.S.C. ???263a, that meet requirements to perform moderate, high, or waived complexity tests and at the Point of Care (POC), i.e., in patient care settings operating under a CLIA Certificate of Waiver, Certificate of Compliance, or Certificate of Accreditation. This test has been authorized only for the detection of proteins from SARS-CoV-2, not for any otherviruses or pathogens; and, in the [place], this test is only authorized for the duration of the declaration that circumstances exist justifying the authorization of emergency use of in vitro diagnostics for detection and/or diagnosis of the virus that causes COVID-19 under Section 564(b)(1) of the Act,21 U.S.C. ??? 360bbb-3(b)(1), unless the authorization is terminated or revoked sooner.Performed By: #### [id number] #### [facility] [address], [place] [address]PR Chest 2 Viewson [id number] Chest 2 ViewsExam Date/Time: 12/31/2024 13:48 EST Reason for Exam: Cough Report IMPRESSION: No acute radiographic abnormality. EXAMINATION: XR Chest 2 Views Clinical History: Cough. Comparison: None RESULT: No consolidation. No pleural effusion. No pneumothorax. Normal cardiomediastinal silhouette. No acute osseous findings. Ordering Provider: Jackson [place] FINAL REPORT Dictated: 12/31/2024 1:50 pm Bakari Birch MD Signed (Electronic Signature): 12/31/2024 1:50 pm Signed by: Bakari Birch MD Transcribed by: MONIQUE Technologist: Antonietta [facility] CenterED Note-Physicianon [id number] Note-PhysicianED Note-Physician Basic Information Time Seen: Wendy Mills PA-C 12/16/2024 16:26 Chief Complaint patient presents with right eye irritation and redness that started wednesday History of Present Illness Patient is a 54 year old female who presents to the ED right eye irritation and erythema. The patient said the symptoms have been worsening over the past 3 days. She states she woke up with her eye matted shut today. She has been using warm compresses to help alleviate symptoms. The patient expresses concern that she may have contacted nancie from a coworker who was recently diagnosed with it. The patient denies vision changes or pain with movement. The main complaint of the patient is irritation and pruritus. Patient denies any acute trauma and denies having allergies beyond pollen. Denies fever, headache, nausea. Patient denies the use of contacts. Review of Systems A 10 point review of systems is negative except as noted above. Medical and Surgical History: Reviewed and noted Social history: Lives at home Family History: Reviewed. Tobacco: use Physical Exam Vitals & Measurements T: 36.8 ???C(Oral) HR: 92(Peripheral) RR: 16 BP: 149/83 SpO2: 98% HT: 170 cm WT: 101.8 kg BMI: 35.22 General: The patient appears well and in no apparent distress. Patient is resting comfortably on cart. Skin: Warm, dry, no pallor noted. Head: Normocephalic, atraumatic Eye: PERRLA, EOMI without pain, right conjunctival erythema, no periorbital edema or erythema ENT: Moist mucus membranes Cardiovascular: Regular rate normal peripheral perfusion Respiratory: No respiratory distress no accessory muscle use no obvious audible wheezing Musculoskeletal: normal ROM, no deformity, no swelling Neurological: A&O moves all extremities equal strength and symmetry Psychiatric: Cooperative and appropriate Procedure Wendy Rodriges PA-C had a bxgc-tt-thsg interaction with the patient. I personally performed a physical exam and medical decision making. I have verified the documentation by the student as accurately representing the information obtained. Medical Decision Making Patient is a 54 year old female who presents to the ED right eye irritation and erythema that began3 days ago following exposure to conjunctivitis. Patient is hemodynamically stable and afebrile. Onexam there is right conjunctival erythema. No evidence of orbital cellulitis. Patient denies any known trauma or concerns for a corneal abrasion. She is being treated with Polytrim. Patient will follow-up with her primary care provider. She was advised to return to ED with any new or worsening symptoms. Patient is agreeable with the plan and all questions were answered. Assessment/Plan Acute conjunctivitis, right eye (H10.31: Unspecified acute conjunctivitis, right eye) Orders: polymyxin B-trimethoprim ophthalmic, 1 drop(s), OPTH, q3hr for 7 day(s), 10 mL, Refill(s) 0, [id number], 170, cm, 12/16/24 16:24:00 EST, Height/Length Dosing, 101.8, kg, 12/16/24 16:24:00 EST, Weight Dosing Disposition Plan Patient Discharge Condition stable Discharge Disposition home Discharge Prescription List Prescriptions Polytrim 10 mL Soln-Opth, 1 drop(s), OPTH, q3hr Follow-up With When Contact Information Li Greenwood In 3 days 12/19/2024 EST [address] [place] [address] Business (1) Additional Instructions: Call to schedule a follow-up appointment with your primary care provider. Use the drops as prescribed. Return to the ED with any new or worsening symptoms. Patient Education Allergic Conjunctivitis, Adult, Fspr-li-Iwex Attestation Patient seen and evaluated by the physician assistant professor of dietetics. Attending physician was present in the emergency department and supervised care. This visit was performed by both the physician and an APC. I performed all aspects of the MDM as documented. This report was transcribed using voice recognition software. Every effort was made to ensure accuracy, however, inadvertently computerized convenience store manager mistakes may be present. I performed a substantive part of the MDM during the patient???s E/M visit. I personally made or approved the documented management plan and acknowledge its risk of complications. (Independent Interpretation) My (EKG/X-Ray/US/CT as applicable) interpretation as above. (Discussion) Management/test interpretation discussed with APC. Problem List/Past Medical History Ongoing Atrial enlargement, bilateral BMI 34.0-34.9,adult Cardiomegaly Chronic obstructive lung disease Diabetes mellitus Hyperlipidemia Hypertensive disorder Hypertriglyceridemia Insomnia LVH (left ventricular hypertrophy) Morbid obesity Perirectal abscess Pulmonary hypertension Historical No qualifying data Procedure/Surgical History Cholecystectomy, Repair of umbilical hernia. Medications Inpatient No active inpatient medications Home albuterol 0.083% Inh Renata 3 mL, 2.5 mg= 3 mL, (more content not included)... [facility] EastComment on above:Result Comment: Electronically Signed By: Shadia Correa M.D.\.br\Date and Time Signed: 12/17/2506:20 EST\.br\Electronically Co-Signed By: Wendy Mills PA-C\.br\Date and Time Co-Signed: 12/16/24 22:02 NICOLASA Clinical Summaryon [id number] Clinical Summary ED Clinical Summary [address] [address] ED Clinical Summary Person Information Name: CONRADO ABEBE [place]ita[place] Age: 54 Years : 1970 Sex: Female Language: Mongolian PCP: Li Greenwood MD Marital Status: Visit Id: Visit Reason: Eye problem; Red eye; EYE IRRITATION Speciality: Acuity: 4 Enc Type: Emergency Med Service: Emergency Arrival: 12/16/2024 16:18:50 Discharge: 12/16/2024 16:48:46 LOS: 000 00:30 Checkin: 12/16/2024 16:18:50 Checkout: 12/16/2024 16:48:46 Dispo Type: Home (Routine DC) EVENTS: Event Name Event Status Request Date/Time Start Date/Time Complete Date/Time Arrive Complete 12/16/2024 16:18:50 12/16/2024 16:18:50 12/16/2024 16:18:50 Document Home Meds Request 12/16/2024 16:18:50 Triage Complete 12/16/2024 16:18:50 12/16/2024 16:24:28 12/16/2024 16:24:28 Bed Assign Complete 12/16/2024 16:20:45 12/16/2024 16:20:45 12/16/2024 16:20:45 Dr Exam Complete 12/16/2024 16:20:45 12/16/2024 16:22:14 12/16/2024 16:22:14 RN Exam Complete 12/16/2024 16:20:45 12/16/2024 16:26:01 12/16/2024 16:26:01 Registration Complete 12/16/2024 16:22:14 12/16/2024 16:23:17 12/16/2024 16:23:17 Reg Complete Request 12/16/2024 16:23:17 Reg Bed Request Complete 12/16/2024 16:23:17 12/16/2024 16:23:17 12/16/2024 16:23:17 Dr Exam Complete 12/16/2024 16:26:37 12/16/2024 16:26:37 12/16/2024 16:26:37 Registration Request 12/16/2024 16:26:37 Meds Admin Cancel 12/16/2024 16:27:23 12/16/2024 16:28:55 Dr Exam Complete 12/16/2024 16:31:42 12/16/2024 16:31:42 12/16/2024 16:31:42 Discharge Complete 12/16/2024 16:45:13 12/16/2024 16:48:52 12/16/2024 16:48:52 Transfer Complete 12/16/2024 16:48:52 12/16/2024 16:48:52 12/16/2024 16:48:52 ADDRESS: [address] [facility] [id number] PHYS DOC NOTES: MEDICAL INFORMATION: Prescriptions Given: New Medications [id number], [address], [place] [id number], [phone] polymyxin B-trimethoprim ophthalmic (Polytrim 10 mL Soln-Opth) 1 Drops Ophthalmic every 3 hours for7 Days. Refills: 0. Medications to Continue with No Changes Other Medications albuterol (albuterol 0.083% Inh Renata 3 mL) 3 Milliliter Nebulized inhalation (aerosol) 4 times a dayas needed Shortness of breath or wheezing. albuterol (ProAir RespiClick 90 mcg/inh inhalation powder) 2 Puffs Inhalation 4 times a day as needed Shortness of breath or wheezing. 0 Refill(s). fluticasone-vilanterol (fluticasone-vilanterol 100 mcg-25 mcg inhalation powder) 1 Puffs Inhalationevery day. glimepiride (glimepiride 4 mg Tab) 2 Tablets By Mouth every day. tiotropium (Spiriva Respimat 10 ACT 2.5 mcg/inh inhalation aerosol) 2 Puffs Inhalation every day. PATIENT EDUCATION INFORMATION: Instructions: Allergic Conjunctivitis, Adult, Gfqy-ey-Aluj Follow up: With: Address: When: Li Greenwood [address] [place] [address], [facility] [place] [phone] Business (1) In 3 days 12/19/2024 Comments: Call to schedule a follow-up appointment with your primary care provider. Use the drops as prescribed. Return to the ED with any new or worsening symptoms. DIAGNOSIS: Acute conjunctivitis, right eyeNormalFisher BooMedStar Good Samaritan Hospital CenterED Patient Summaryon [id number] Patient SummaryED Patient Summary [place] [id number] Patient Discharge Instructions Person Information Name: CONRADO ABEBE Age: 54 Years Arrival Date: 12/16/2024 16:18:50 Discharge Diagnosis: Acute conjunctivitis, right eye Primary Care Physician: Li Greenwood MD Provider Information Primary Provider: Shadia Correa M.D. Advanced Asphalt Paver Operator:Wendy Mills PA-C The exam and treatment you received in the Emergency Department were for an urgent problem and are not intended as complete care. It is important that you follow up with a doctor, nurse practitioner,or physician???s assistant professor of dietetics for ongoing care. If your symptoms become worse or you do not improve asexpected and you are unable to reach your usual health care provider, you should return to the Emergency Department. We are available 24 hours a day. CONRADO ABEBE has been given the following list of patient education materials, prescriptions and follow-up instructions: Follow-up Instructions: With: Address: When: Li Greenwood [address] [place] [address], [address] [place] [phone] Business (1) In 3 days 12/19/2024 Comments: Call to schedule a follow-up appointment with your primary care provider. Use the drops as prescribed. Return to the ED with any new or worsening symptoms. In the event that this physician does not participate in your insurance network, please consult with your insurance company to find a nearby participating provider. Patient Education Materials: Allergic Conjunctivitis, Adult, Btwz-bl-Mdcv A MESSAGE TO ALL PATIENTS REGARDING OPIOIDS PRESCRIPTION OPIOIDS: WHAT YOU NEED TO KNOW Prescription opioids can be used to help relieve poddppgs-vj-eqmblb pain and are often prescribed following a [...] as well, even when taken as directed: ??? Tolerance???meaning you might need to take more of the medication for the same pain relief ??? Physical dependence???meaning you have symptoms of withdrawal when a medication is stopped ??? Increased sensitivity to pain ??? Constipation ??? Nausea, vomiting, and dry mouth ??? Sleepiness and dizziness ??? Confusion ??? Depression ??? Low levels of testosterone that can result in lower sex drive, energy, and strength ??? Itching and sweating RISKS ARE GREATER WITH: ??? History of drug misuse, substance use disorder, or overdose ??? Mental health conditions (such as depression or anxiety) ??? Sleep apnea ??? Older age (65 years and older) ??? Avoid alcohol while taking prescription opioids. Also, unless specifically advised by your health care provider, medications to avoid include: ??? Benzodiazepines (such as Xanax or Valium) ??? Muscle relaxants (such as Soma or Flexeril) ??? Hypnotics (such as Ambien or Lunesta) ??? Other prescription opioids KNOW YOUR OPTIONS Talk to your health care provider about ways to manage your pain that don???t involve prescription opioids. Some of these options may actually work better and have fewer risks and side effects. Options may include: ??? Pain relievers such as acetaminophen, ibuprofen, and naproxen ??? Some medication that are also used for depression or seizures ??? Physical therapy and exercise ??? Cognitive behavioral therapy, a psychological, goal-directed approach, in which patients learn how to modify physical, behavioral, and emotional triggers of pain and stress. IF YOU ARE PRESCRIBED OPIOIDS FOR PAIN: ??? Never take opioids in greater amounts or more often than prescribed. ??? Follow up with your primary health care provider. o Work together to create a plan on how to manage your pain. o Talk about ways to help manage your pain that don???t involve prescription opioids. o Talk about any and all concerns and side effects. ??? Help prevent misuse and abuse o Never sell or share prescription opioids. o Never use another person???s prescription opioids. ??? Store prescription opioids in a secure place and out of reach of others (this may include visitors, children, friends, and family). ??? Safely dispose of unused prescription opioids: Find your community drug take-back program or your pharmacy mail-back program, or flush them down the toilet, following guidance from the Food and Drug Administration (www.fda.g (more content not included)...[facility]C Urineon [id number] identified Cx Nom (U)Microbiology PROCEDURE: Urine Culture [R1] SOURCE: U CleanCatch BODY SITE: COLLECTED DATE/TIME: 03/11/2024 21:40 EDT RECEIVED DATE/TIME: 03/11/2024 22:21 EDT START DATE/TIME: 03/11/2024 22:21 EDT FREE TEXT SOURCE: Arabella Walker PA-C, PA-C, Kathryn E. FINAL REPORTS Final Report [] Verified Date/Time: 03/13/2024 07:05 EDT 300 cfu/ml Mixed skin contaminants Performing Locations R1: This test was performed at: [facility], [address] [place] [address], [address] [place] [address], DfezhzCdfjznRegency Hospital Cleveland EastComment on above:Performed By: #### [id number], [id number] ####[facility] [address] [place], [place] [address]Qeacrkcfx Instructionson [id number] Instructions [id number]#1.00[facility]'s Medical CenterConsent for Treatmenton [id number] for Treatment [id number] Memorial Hospital Clinical Summaryon [id number] Clinical Summary [address] [address] ED Clinical Summary Person Information Name: CONRADO ABEBE [place] Age: 53 Years : 1970 Sex: Female Language: Mongolian PCP: Li Greenwood MD Marital Status: Visit Id: Visit Reason: Vaginal pain; Vaginal discharge; VAGINAL IRRITATION Speciality: Acuity: 4 Enc Type: Emergency Med Service: Emergency Arrival: 03/11/2024 21:17:13 Discharge: 03/11/2024 21:55:13 LOS: 000 00:38 Checkin: 03/11/2024 21:17:13 Checkout: 03/11/2024 21:55:13 Dispo Type: Home (Routine DC) EVENTS: Event Name Event Status Request Date/Time Start Date/Time Complete Date/Time Arrive Complete 03/11/2024 21:17:13 03/11/2024 21:17:13 03/11/2024 21:17:13 Document Home Meds Request 03/11/2024 21:17:13 Triage Complete 03/11/2024 21:17:13 03/11/2024 21:29:48 03/11/2024 21:29:48 Registration Complete 03/11/2024 21:19:40 03/11/2024 21:19:40 03/11/2024 21:19:40 Reg Complete Request 03/11/2024 21:19:40 Reg Bed Request Complete 03/11/2024 21:19:40 03/11/2024 21:19:40 03/11/2024 21:19:40 Bed Assign Complete 03/11/2024 21:23:21 03/11/2024 21:23:21 03/11/2024 21:23:21 Dr Exam Complete 03/11/2024 21:23:21 03/11/2024 21:24:31 03/11/2024 21:24:31 RN Exam Complete 03/11/2024 21:23:21 03/11/2024 21:34:55 03/11/2024 21:34:55 Registration Request 03/11/2024 21:24:31 Dr Exam Complete 03/11/2024 21:24:36 03/11/2024 21:24:36 03/11/2024 21:24:36 Pending Labs Collected 03/11/2024 21:24:41 Meds Admin Complete 03/11/2024 21:48:47 03/11/2024 21:54:26 Discharge Complete 03/11/2024 21:50:58 03/11/2024 21:55:38 03/11/2024 21:55:38 Transfer Complete 03/11/2024 21:55:38 03/11/2024 21:55:38 03/11/2024 21:55:38 ADDRESS: [place] [address] [phone] PHYS DOC NOTES: MEDICAL INFORMATION: Prescriptions Given: Medications to Continue with No Changes Other Medications albuterol (albuterol 0.083% Inh Renata 3 mL) 3 Milliliter Nebulized inhalation (aerosol) 4 times a dayas needed Shortness of breath or wheezing. albuterol (ProAir RespiClick 90 mcg/inh inhalation powder) 2 Puffs Inhalation 4 times a day as needed Shortness of breath or wheezing. 0 Refill(s). fluticasone-vilanterol (fluticasone-vilanterol 100 mcg-25 mcg inhalation powder) 1 Puffs Inhalationevery day. glimepiride (glimepiride 4 mg Tab) 2 Tablets By Mouth every day. tiotropium (Spiriva Respimat 10 ACT 2.5 mcg/inh inhalation aerosol) 2 Puffs Inhalation every day. PATIENT EDUCATION INFORMATION: Instructions: Vaginal Yeast Infection, Adult Follow up: With: Address: When: Krystyna GARCES, [address] [address] In 3 days 03/14/2024 DIAGNOSIS: 1:Vulvovaginal candidiasisNormalFisher Monterey Medical CenterED Note-Physicianon [id number] Note-PhysicianBasic Information Time Seen: Arabella Walker PA-C 03/11/2024 21:24 Chief Complaint pt. c/o white vaginal d/c since this morning with itching. denies fever, chills. believes she has ayeast infection, monistat with no relief. History of Present Illness Patient is pleasant 53-year-old female with history of HTN, HLD, T2DM and pulmonary hypertension who presents to the ED with her for evaluation of vaginal pruritus and white chunky vaginal discharge that she began noticed today. She says she has been out of her diabetes medicine for the past few days and thinks that may have led to a yeast infection. She says she is had multiple yeast infections in the past and this feels the same. She denies any dysuria, hematuria, abdominal pain, fever, chills, chest pain, shortness of breath. She called her doctor and they sent in refills for her diabetes medicine so she does not need refills. She denies chance of STIs. Review of Systems IA 10 point review of systems is negative except as noted above. Medical and Surgical History: Reviewed and noted Social history: Lives at home Substance use: Daily tobacco use. Physical Exam Vitals & Measurements T: 36.7 ?C(Oral) HR: 87(Peripheral) RR: 18 BP: 165/82 SpO2: 96% HT: 170 cm WT: 101.1 kg BMI: 34.98 Appearance: Pleasant. Elevated BMI., alert and awake. Speaking in complete sentences. Calm. Cooperative. Vital signs reviewed, hypertensive otherwise WNL Skin: Warm, dry, intact. Eyes: PERRL. Vision grossly intact. Respiratory: LCTA b/l with normal bilateral excursion. No wheezes, rhonchi, rales. Cardiovascular: Hypertensive. RRR, no murmurs. Abdomen/GI: Soft, nontender, nondistended. No guarding, rigidity, rebound tenderness. NABS x4. : Declined pelvic exam Neuro: Alert and awake, speech Clear, cranial nerves grossly intact. Extremities: No deformity noted on exam. Patient spontaneously moves all 4 extremities. Medical Decision Making Limitations to history: None Nursing Notes: Reviewed and utilized the nursing notes. Previous records reviewed: Patient last treated for yeast infection in November 2023 after she was initiated on antibiotics for an abscess. MDM: Patient is a 53-year-old female who presents to the ED for evaluation of yeast infection. Her abdomen is soft and nontender. Her vital signs are normal. Urine has been obtained. Will treat with Diflucan here and will send 1 to the pharmacy for her. I advised that if symptoms do not clear up she maytake the Diflucan after couple of days. Encouraged her to follow-up with her PCP or her SOCK LINING STITCHER as needed. Return to the ER for any new or worsening symptoms. She is agreeable. Appropriate for: Outpatient mgmt Assessment/Plan 1. Vulvovaginal candidiasis (B37.31: Acute candidiasis of vulva and vagina) Ordered: fluconazole, 150 mg = 1 tab(s), Oral, Once, # 1 tab(s), Refills(s) 1, Pharmacy: [facility]/pharmacy #[id number], cm, 03/11/24 21:29:00 EDT, Height/Length Dosing, 101.1, kg, 03/11/24 21:29:00 EDT, Weight Dosing Orders: fluconazole, 150 mg = 1 tab(s), Tab, Oral, Once, Stop date 03/11/24 21:48:00 EDT, STAT, Start date 03/11/24 21:48:00 EDT, 03/11/24 21:48:00 EDT UA with Cult Rflx Disposition Plan Patient Discharge Condition Stable Discharge Disposition Home Discharge Prescription List Prescriptions No active prescription medications Follow-up With When Contact Information Li Greenwood MD In 3 days 03/14/2024 EDT [address] [id number]- Additional Instructions: Additional Instructions: Call the office of your primary care doctor to arrange for follow-up within the above-stated timeframe. Follow-up with your primary care doctor aboutthis ED visit. You should review your labs, imaging, and diagnoses from this ED visit with your primary care physician. If you were prescribed medications you should discuss possible side- effects anddrug interactions with your pharmacist. Call 911 or go to the nearest Emergency Department if you develop any new or worsening symptoms. Patient Education Vaginal Yeast Infection, Adult Attestation This visit was performed by both the physician and an APC. I performed all aspects of the MDM as documented. This report was transcribed using voice recognition software. Every effort was made to ensure accuracy, however, inadvertently computerized convenience store manager management be present. Problem List/Past Medical History Ongoing Atrial enlargement, bilateral BMI 34.0-34.9,adult Cardiomegaly Chronic obstructive lung disease Diabetes mellitus Hyperlipidemia Hypertensive disorder Hypertriglyceridemia Insomnia LVH (left ventricular hypertrophy) Morbid obesity Perirectal abscess Pulmonary hypertension Historical No qualifying data Procedure/Surgical History Cholecystectomy, Repair of umbilical hernia. Medications Inpatient No active inpatient medications Home albuterol 0.083% Inh Renata 3 mL, 2.5 mg= 3 mL, NEB, QID, PRN fl (more content not included)...[facility] above:Result Comment: Electronically Signed By: Arabella Walker PA-C\.br\Date and Time Signed: 03/11/24 21:50 EDT\.br\Electronically Co-Signed By: Lucien Oropeza DO\.br\Date and Time Co-Signed: 03/11/24 22:29 EDTED Patient Education Noteon [id number] Patient Education NoteObstetrics and Gynecology Vaginal Yeast Infection, Adult Vaginal yeast infection is a condition that causes vaginal discharge as well as soreness, swelling,and redness (inflammation) of the vagina. This is a common condition. Some women get this infectionfrequently. What are the causes? This condition is caused by a change in the normal balance of the yeast (Lucille) and normal bacteria that live in the vagina. This change causes an overgrowth of yeast, which causes the inflammation. What increases the risk? The condition is more likely to develop in women who: ? Take antibiotic medicines. ? Have diabetes. ? Take control pills. ? Are . ? Douche often. ? Have a weak body defense system (immune system). ? Have been taking steroid medicines for a long time. ? Frequently wear tight clothing. What are the signs or symptoms? Symptoms of this condition include: ? White, thick, creamy vaginal discharge. ? Swelling, itching, redness, and irritation of the vagina. The lips of the vagina (labia) may be affected as well. ? Pain or a burning feeling while urinating. ? Pain during sex. How is this diagnosed? This condition is diagnosed based on: ? Your medical history. ? A physical exam. ? A pelvic exam. Your health care provider will examine a sample of your vaginal discharge under a microscope. Your health care provider may send this sample for testing to confirm the diagnosis. How is this treated? This condition is treated with medicine. Medicines may be hxoy-rxr-jtmiorf or prescription. You maybe told to use one or more of the following: ? Medicine that is taken by mouth (orally). ? Medicine that is applied as a cream (topically). ? Medicine that is inserted directly into the vagina (suppository). Follow these instructions at home: ? Take or apply qhvh-kkv-rodjgax and prescription medicines only as told by your health care provider. ? Do not use tampons until your health care provider approves. ? Do not have sex until your infection has cleared. Sex can prolong or worsen your symptoms of infection. Ask your health care provider when it is safe to resume sexual activity. ? Keep all follow-up visits. This is important. How is this prevented? ? Do not wear tight clothes, such as pantyhose or tight pants. ? Wear breathable cotton underwear. ? Do not use douches, perfumed soap, creams, or powders. ? Wipe from front to back after using the toilet. ? If you have diabetes, keep your blood sugar levels under control. ? Ask your health care provider for other ways to prevent yeast infections. Contact a health care provider if: ? You have a fever. ? Your symptoms go away and then return. ? Your symptoms do not get better with treatment. ? Your symptoms get worse. ? You have new symptoms. ? You develop blisters in or around your vagina. ? You have blood coming from your vagina and it is not your menstrual period. ? You develop pain in your abdomen. Summary ? Vaginal yeast infection is a condition that causes discharge as well as soreness, swelling, and redness (inflammation) of the vagina. ? This condition is treated with medicine. Medicines may be qkjf-fib-cupgbsf or prescription. ? Take or apply unph-czv-xmibdif and prescription medicines only as told by your health care provider. ? Do not douche. Resume sexual activity or use of tampons as instructed by your health care provider. ? Contact a health care provider if your symptoms do not get better with treatment or your symptomsgo away and then return. This information is not intended to replace advice given to you by your health care provider. Make sure you discuss any questions you have with your health care provider. Document Revised: 02/02/2022 Document Reviewed: 02/02/2022 [employer] Patient Education ? 2022 [employer].[facility] ED Patient Summaryon [id number] Patient Summary [address] [address] Patient Discharge Instructions Person Information Name: CONRADO ABEBE Age: 53 Years Arrival Date: 03/11/2024 21:17:13 Discharge Diagnosis: 1:Vulvovaginal candidiasis Primary Care Physician: Li Greenwood MD Provider Information Primary Provider: Lucien Oropeza DO Advanced Asphalt Paver Operator:Arabella Walker PA-C The exam and treatment you received in the Emergency Department were for an urgent problem and are not intended as complete care. It is important that you follow up with a doctor, nurse practitioner,or physician?s assistant professor of dietetics for ongoing care. If your symptoms become worse or you do not improve as expected and you are unable to reach your usual health care provider, you should return to the Emergency Department. We are available 24 hours a day. CARYL ABEBEChristiano Adler has been given the following list of patient education materials, prescriptions and follow-up instructions: Follow-up Instructions: With: Address: When: Li Greenwood MD [facility] [id number] In 3 days 03/14/2024 In the event that this physician does not participate in your insurance network, please consult with your insurance company to find a nearby participating provider. Patient Education Materials: Vaginal Yeast Infection, Adult A MESSAGE TO ALL PATIENTS REGARDING OPIOIDS PRESCRIPTION OPIOIDS: WHAT YOU NEED TO KNOW Prescription opioids can be used to help relieve ljmabkxq-bo-gyfzjn pain and are often prescribed following a [...] and have fewer risks and side effects. Optionsmay include: ? Pain relievers such as acetaminophen, [...] unused prescription opioids: Find your community drug take- back program or yourpharmacy mail-back program, or flush them down the toilet, following guidance from the Food and Drug Administration (www.fda.gov/Drugs/ResourcesForYou). ? Visit www.cdc.gov/drugoverdose to learn about the risks of opioids abuse and overdose. ? If you believe you may be struggling with addiction, tell your health career development engineer and ask for guidance or call SAMHSA?S National Helpline at 9-069-407-CJLN. (more content not included)...[facility] EastUA with Cult Rflx on [id number] Auto Ql (U)TraceNormalTraceB[facility] Comment on above:Performed By: #### [id number], [id number] ####[facility] [address] [place], [place] [address]Yfcgthpxq Ql (U)Negative NormalNegativeBrecksville Va / Crille HospitalComment on above:Performed By: #### [id number], [id number] ####[address] [address]Rbxyfhe (U)TurbidAbnormalClearFMorrow County Hospital Comment on above:Performed By: #### [id number], [id number] ####[address] [address]Eglqp (U)Light-YellowNormal YellowBrecksville Va / Crille HospitalComment on above:Result Comment: Microscopic readings are only performed on those samples that meet specific criteria set forth by [facility].Performed By: #### [id number], [id number] ####[address] [address]Uovqepgqau cells.squamous Auto (Urine sed) [#/Area]5-3Ragzfnmb3-9CqezqlMorrow County HospitalComment on above:Performed By: #### [id number], [id number] ####[address] [address] Glucose Ql (U)4+ mg/dLAbnormalNegativeBrecksville Va / Crille HospitalComment on above:Performed By: #### [id number], [id number] ####[address] [address]Kdqfsvktmq Auto test strip (U) [Mass/Vol]NegativeNormalNegativeBrecksville Va / Crille HospitalComment on above: Performed By: #### [id number], [id number] ####[address] [address]Cdykchi casts LM Ql (Urine sed)0-3 Normal0-3FMorrow County HospitalComment on above:Performed By: #### [id number], [id number] ####[address] [address]Sxnzrpk Auto test strip Ql (U)NegativeNormalNegativeBrecksville Va / Crille HospitalComment on above:Performed By: #### [id number], [id number] ####[address] [address]Xyxufxzhh esterase Auto test strip Ql (U)75 Hosea/uLAbnormalNegativeBrecksville [facility] Comment on above:Performed By: #### [id number], [id number] ####[address] [address]Wodqc Auto Ql (U)TraceNormal NegativeBrecksville Va / Crille HospitalComment on above:Performed By: #### [id number], [id number] ####[address] [address]Zldwdps Auto test strip Ql (U)NegativeNormalNegativeBrecksville Va / Crille HospitalComment on above:Performed By: #### [id number], [id number] ####[address] [address]yH (U)7.0 [pH]Invalid Interpretation Code5.0-9.0B[facility] HospitalComment on above:Performed By: #### [id number], [id number] ####[address] [address]Vqjbqht Ql (U)NegativeNormalNegOhioHealth O'Bleness HospitalComment on above:Performed By: #### [id number], [id number] ####[address] [address]SZF Ql (U)4-20 Abnormal0-3Fisher [facility] HospitalComment on above:Performed By: #### [id number], [id number] ####[address] [address]Miqlrzvo gravity (U) [Rel density]1.028Invalid Interpretation Code1.005-1.030[facility] HospitalComment on above: Performed By: #### [id number], [id number] ####[address], [place] [address]Leyueelbqrkg (U) [Mass/Vol]Negative NormalNegativeBrecksville Va / Crille HospitalComment on above:Performed By: #### [id number], [id number] ####[facility] [address] [place], [place] [address]YOI Auto (Urine sed) [#/Area]7-58Tyenfucv4-0Nudlrc Holy Cross HospitalComment on above:Performed By: #### [id number], [id number] ####[facility] [address] [place], [place] [address]Tiui of Urine collection methodRandom UrineNormalBrecksville Va / Crille HospitalComment on above: Performed By: #### [id number], [id number] ####[facility] [address] [place] [address]OZTNABBPRWRoudfwr By: SYSTEM SYSTEM on 03-89-3996Maozcwcx Auto Ql (U)Trace graded/HPFNormalTracegraded/HPFFT UA Auto SSBilirubin Ql (U)NegativeNormalNegativemg/dLMERCY H[facility] [place] Auto SSClarity (U) Turbid *ABN* (03/11/24 9:40 PM)Invalid Interpretation CodeClearFTMC UA Auto SSColor (U)Light- Yellow 1 (03/11/24 9:40 PM)NormalYellowMERCY HOS[facility]ITAL [place]A Auto SSComment on above:Interpretive Data: Microscopic readings are only performed on those samples that meet specific criteria set forth by [facility].Epithelial cells.squamous Auto (Urine sed) [#/Area]5-8 graded/HPFInvalid Interpretation Code0-2graded/HPFFT UA Auto SSGlucose Ql (U)4+ mg/dLInvalid Interpretation CodeNegativemg/dLFT UA Auto SSHemoglobin Auto test strip (U) [Mass/Vol] NegativeNormalNegativemg/dLFT UA Auto SSHyaline casts LM Ql (Urine sed)0-3 graded/LPFNormal0-3graded/LPFFTMC UA Auto SSKetones Auto test strip Ql (U) NegativeNormalNegativemg/dLFTMC UA Auto SSLeukocyte esterase Auto test strip Ql (U)75 Hosea/uL Hosea/uLInvalid Interpretation CodeNegativeLeu/uLMERCY HOSPITAL [place]A Auto SSMucus Auto Ql (U)Trace graded/LPFNormalNegativegraded/LPFFTMC UA Auto SSNitrite Auto test strip Ql (U)NegativeNormalNegativemg/dLMERCY HOS[facility] [place]A Auto SSpH (U)7.0 *NA* (03/11/24 9:40 PM)Invalid Interpretation Code5.0 - 9.0[facility] [place] [facility] [place]A Auto SSProtein Ql (U)NegativeNormalNegativemg/dLFT UA Auto SSRBC Ql (U)4-20 graded/HPFInvalid Interpretation Code0-3graded/HPFMERCY HOSPITAL [place]A Auto SSSpecific gravity (U) [Rel density]1.028 *NA* (03/11/24 9:40 PM)Invalid Interpretation Code1.005 - 1.030[facility] [place] [facility] [place]A Auto SS Urobilinogen (U) [Mass/Vol]NegativeNormalNegativemg/dLMERCY HOSPITAL [place]A Auto SSWBC Auto (Urine sed) [#/Area]6-15 graded/HPFInvalid Interpretation Code0-5graded/HPFMERCY HOSPITAL [place]A Auto SSURINALYSISOrdered By: Arabella Walker on [id number] Spec DescRandom Urine (03/11/24 9:40 PM)NormalMERCY HOSPITAL [place]A Auto SS Ambulatory Visit Summaryon [id number] Visit Summary CONRADO ABEBE :1970 Visit Date:01/03/2024 Ambulatory Visit Instructions Your Diagnosis Visit for suture removal BMI 34.0-34.9,adult Your Care Team Attending Physician - Sanchez ECHOLS, Osiel Lisa Primary Care Physician - Li Greenwood MD This Is Your Medications List Contact prescribing physician if questions or concerns albuterol (ProAir RespiClick 90 mcg/inh inhalation powder) albuterol (albuterol 0.083% Inh Renata 3 mL) fluticasone-vilanterol (fluticasone-vilanterol 100 mcg-25 mcg inhalation powder) glimepiride (glimepiride 4 mg Tab) tiotropium (Spiriva Respimat 10 ACT 2.5 mcg/inh inhalation aerosol) Procedures Performed Cholecystectomy, Repair of umbilical hernia. Discharge Vitals Temperature (Oral) 36.3 ?C Heart Rate (Peripheral) 84 Blood Pressure 130/70 Height 170 cm Height 67 in Weight 101.1 kg Weight 222.42 lb BMI 34.98 What to do next You Need to Schedule the Following Appointments Follow Up with Li Greenwood MD When: Where: [address] [place] [address]- Medications What How Much When Instructions Unchanged albuterol (albuterol 0.083% Inh Renata 3 mL) 3 Milliliter Nebulized inhalation (aerosol) 4 times a day as needed for Shortness of breath or wheezing Contact prescribing physician if questions or concerns Unchanged albuterol (ProAir RespiClick 90 mcg/ inh inhalation powder) 2 Puffs Inhalation 4 times a day as needed for Shortness of breath or wheezing 0 Refill(s) Contact prescribing physician if questions or concerns Unchanged fluticasone-vilanterol (fluticasone-vilanterol 100 mcg-25 mcg inhalation powder) 1 Puffs Inhalation Every day Contact prescribing physician if questions or concerns Unchanged glimepiride (glimepiride 4 mg Tab) 2 Tablets By Mouth Every day Contact prescribing physician if questions or concerns Unchanged tiotropium (Spiriva Respimat 10 ACT 2.5 mcg/ inh inhalation aerosol) 2 Puffs Inhalation Every day Contact prescribing physician if questions or concerns Medications and Immunizations Administered Not Given SARS-CoV-2 mRNA (toewelinaeran 5y-11y) vac, Postpone due to refusal Allergies Bactrim (Hives) Problems Ongoing - Any problem that you are currently receiving treatment for. Atrial enlargement, bilateral BMI 34.0-34.9,adult Cardiomegaly Chronic obstructive lung disease Diabetes mellitus Hyperlipidemia Hypertensive disorder Hypertriglyceridemia Insomnia LVH (left ventricular hypertrophy) Morbid obesity Perirectal abscess Pulmonary hypertension Patient Survey You may receive a survey via text or e-mail asking about your office visit. Please share your experience with us by completing your survey. We appreciate your feedback and thank you for choosing us for your care. Education Materials BMI for Adults What is BMI? Body mass index (BMI) is a number that is calculated from a person's weight and height. BMI can help estimate how much of a person's weight is composed of fat. BMI does not measure body fat directly.Rather, it is an alternative to procedures that directly measure body fat, which can be difficult and expensive. BMI can help identify people who may be at higher risk for certain medical problems. What are BMI measurements used for? BMI is used as a screening tool to identify possible weight problems. It helps determine whether a person is obese, overweight, a healthy weight, or underweight. BMI is useful for: ? Identifying a weight problem that may be related to a medical condition or may increase the risk for medical problems. ? Promoting changes, such as changes in diet and exercise, to help reach a healthy weight. BMI screening can be repeated to see if these changes are working. How is BMI calculated? BMI involves measuring your weight in relation to your height. Both height and weight are measured,and the BMI is calculated from those numbers. This can be done either in [place]ian ([place] or metric measurements. Note that charts and online BMI calculators are available to help you find your BMI quickly and easily without having to do these calculations yourself. To calculate your BMI in [place]ian ([place] measurements: 1. Measure your weight in pounds (lb). 2. Multiply the number of pounds by 703. ? For example, for a person who weighs 180 lb, multiply that number by 703, which equals 126,540. 3. Measure your height in inches. Then multiply that number by itself to get a measurement called inches squared. ? For example, for a person who is 70 inches tall, the inches squared measurement is 70 inches x 70inches, which equals 4,900 inches squared. 4. Divide the total from step 2 (number of lb x 703) by the total from step 3 (inches squared): 126,540 ? 4,900 = 25.8. This is your BMI. To calculate your BMI in metric measurements: 1. Measure your weight in kilograms (kg). 2. Measure your height in (more content not included)...[facility] Medicine Office/Clinic Noteon [id number] Medicine Office/Clinic NoteChief Complaint left lower leg stitches removal HPI Staff 53 year old female here for stitches removal on left lower leg. Stitches placed in the ER 9 days ago per pt. History of Present Illness I have reviewed and verified the staff HPI to be accurate for this encounter. Portions of this record have been created with voice recognition software. Occasional wrong-word or?fusch-n-ljqe? substitutions may have occurred due to the inherent limitations of voice recognitionsoftware. 53-year-old female presents to convenient care today in regards to removal of stitches. Patient states she had stitches placed in the left lower leg approximately 9 days ago. Patient states that she had a cut the left lower extremity getting into the car on the glove box. States she is diabetic in which they really went to the emergency department. States that her tetanus was updated at that timeand she received 10 sutures to the left lower extremity. Patient states she was told to have these removed in 7 to 10 days in which she kept them in for 9. States that she washed it with warm soap and water daily and use antibiotic ointment over the area. She denies any surrounding redness red streaking no concerns for infection no puslike drainage. She has no other concerns at this time. Review of Systems PHQ Score Initial Depression Screen Score: 0 SCORE ROS negative unless otherwise stated in HPI. Physical Exam Vitals & Measurements T: 36.3 ?C(Oral) HR: 84(Peripheral) BP: 130/70 SpO2: 97% HT: 67 in HT: 170 cm WT: 101.1 kg WT: 222.42 lb BMI: 34.98 General: Pleasant obese female present with her today, no acute distress Eyes: not assessed Ears: not assessed Nose: not addressed Mouth: not assessed Neck: not assessed Lungs: Lung sounds are clear bilaterally. No wheezing rhonchi or crackles on exam. Cardio: S1, S2, regular rhythm. No murmurs gallops or rubs. Abdomen: not assessed Musculoskeletal: not assessed Extremity: Patient walked back into convenient care on her own without gait abnormality. Neurologic: not assessed Skin: Patient has a well-healed old 3.5 cm laceration to the left lower lateral extremity. There was a total of 10 Prolene sutures at this location and which appear to be healed very well no surrounding redness warmth or concern for cellulitis or infection. No acute tenderness. Mental Status: Alert and oriented x3. Normal mood and affect Procedure Patient has a well-healed 3.5 cm laceration to the lateral aspect of the left lower extremity. There are a total of 10 Prolene sutures placed. No surrounding erythema warmth or concern for cellulitisor infection of this laceration. I removed all 10 sutures in which patient tolerated well. I placed4 Steri-Strips over this site. Left open to air. Patient understands that she may start washing with warm soap and water daily may use antibiotic ointment if needed will otherwise [facility] understands to return if needed for any redness swelling or concerns for infection. Patient tolerated this well took approximately 5 minutes was completed by myself. Assessment/Plan I discussed with patient to continue to monitor site of laceration. I did place for Steri-Strips over this site appears to be healed very well. Patient will continue to monitor. Patient will return if needed or follow-up closely with primary care provider if she develop any erythema warmth or concerns for cellulitis or infection. Patient and both agree and understand plan. 1. Visit for suture removal (Z48.02: Encounter for removal of sutures) You were seen and evaluated in [facility] today for suture removal. Wound appeared to be healed well, no concerns for infection. A total of #10 sutures were removed from the left lower leg laceration. Continue to wash with warm soap and water, antibiotic ointment as needed. Return for any signs of infection. Patient and both agree and understand plan. 2. BMI 34.0-34.9,adult (Z68.34: Body mass index [BMI] 34.0-34.9, adult) The standard range for ages 18 and older is >=18.5 and < 25 kg/m2. Your BMI today was above this range, this falls in the overweight to obese category and there are medical benefits to weight loss. We can offer counselling, referral, and/or medical support in addressing this problem. Your BMIand weight management will be followed at subsequent visits. Follow-up With When Contact Information Li Greenwood MD [facility] [place] [address]- Additional Instructions: Patient Education BMI for Adults Suture Removal, Care After Problem List/Past Medical History Ongoing Atrial enlargement, bilateral BMI 34.0-34.9,adult Cardiomegaly Chronic obstructive lung disease Diabetes mellitus Hyperlipidemia Hypertensive disorder Hypertriglyceridemia Insomnia LVH (left ventricular hypertrophy) Morbid obesity Perirectal abscess Pulmonary hypertension Historical No qualifying data Procedure/Surgical Hist (more content not included)...[facility] EastComment on above:Result Comment: Electronically Signed By: Osiel Bradford PA-C.br\Date and Time Signed: 01/03/2416:32 ESTPatient Educationon [id number] EducationDermatology Suture Removal, Care After The following information offers guidance on how to care for yourself after your procedure. Your health care provider may also give you more specific instructions. If you have problems or questions, contact your health care provider. What can I expect after the procedure? After your stitches (sutures) are removed, it is common to have: ? Some discomfort and swelling in the area. ? Slight redness in the area. Follow these instructions at home: If you have a dressing: ? Wash your hands with soap and water for at least 20 seconds before and after you change your bandage (dressing). If soap and water are not available, use hand childcare center director. ? Change your dressing as told by your health care provider. If your dressing becomes wet or dirty,or develops a bad smell, change it as soon as possible. ? If your dressing sticks to your skin, pour warm, clean water over it until it loosens and can be removed without pulling apart the wound edges. Pat the area dry with a soft, clean towel. Do not rubthe wound because that may cause bleeding. Wound care ? Check your wound every day for signs of infection. Check for: ? More redness, swelling, or pain. ? Fluid or blood. ? New warmth, a rash, or hardness at the wound site. ? Pus or a bad smell. ? Wash your hands with soap and water for at least 20 seconds before and after touching your wound.If soap and water are not available, use hand childcare center director. ? Keep the wound area dry and clean. Clean and pat the wound dry as told by your health care provider. ? Apply cream or ointment only as told by your health care provider. ? If skin glue or adhesive strips were applied after sutures were removed, leave these closures in place. They may need to stay in place for 2 weeks or longer. If adhesive strip edges start to loosenand curl up, you may trim the loose edges. Do not remove adhesive strips completely unless your health care provider tells you to do that. ? Continue to protect the wound from injury. ? Do not pick at your wound. Picking can cause an infection. Bathing ? Do not take baths, swim, or use a hot tub until your health care provider approves. Ask your health care provider if you may take showers. ? Follow these steps for showering: ? If you have a dressing, remove it before getting into the shower. ? In the shower, allow soapy water to get on the wound. Avoid scrubbing the wound. ? When you get out of the shower, dry the wound by patting it with a clean towel. ? Reapply a dressing over the wound, if needed. Scar care When your wound has completely healed, help decrease the size of your scar by: ? Wearing sunscreen over the scar or covering it with clothing when you are outside. New scars get sunburned easily, which can make scarring worse. ? Gently massaging the scarred area. This can decrease scar thickness. General instructions ? Take bnuz-yuy-twsznxt and prescription medicines only as told by your health care provider. ? Keep all follow-up visits. This is important. Contact a health care provider if: ? You have more redness, swelling, or pain around your wound. ? You have fluid or blood coming from your wound. ? You have new warmth, a rash, or hardness at the wound site. ? You have pus or a bad smell coming from your wound. ? Your wound opens up. Get help right away if: ? You have a fever or chills. ? You have red streaks coming from your wound. Summary ? After your sutures are removed, it is common to have some discomfort and swelling in the area. ? Wash your hands with soap and water before you change your bandage (dressing). ? Keep the wound area dry and clean. Do not take baths, swim, or use a hot tub until your health care provider approves. This information is not intended to replace advice given to you by your health care provider. Make sure you discuss any questions you have with your health care provider. Document Revised: 03/10/2022 Document Reviewed: 03/10/2022 [employer] Patient Education ? 2022 [employer] Nutrition BMI for Adults What is BMI? Body mass index (BMI) is a number that is calculated from a person's weight and height. BMI can help estimate how much of a person's weight is composed of fat. BMI does not measure body fat directly.Rather, it is an alternative to procedures that directly measure body fat, which can be difficult and expensive. BMI can help identify people who may be at higher risk for certain medical problems. What are BMI measurements used for? BMI is used as a screening tool to identify possible weight problems. It helps determine whether a person is obese, overweight, a healthy weight, or underweight. BMI is useful for: ? Identifying a weight problem that may be related to a medical condition or may increase the risk for medical problems. ? Promoting changes, such as changes in diet and exercise, to help reach a healthy weight. BMI sc (more content not included)...NormalBrecksville Va / Crille HospitalConsent for Treatmenton [id number] for Treatment [id number]#1.00TIFFNormalBrecksville Va / Crille HospitalCBC AUTO DIFFon [id number] #0.1 103/ulNormal0.0-0.1[facility] HospitalComment on above:Performed By: #### CMP #### [facility] [address] [place] [address] Dr. Hai WilliamsonBasophils/100 WBC (Bld)1.2 %Normal0.2-2.0[facility] Comment on above:Performed By: #### CMP #### [facility] [address] [place] [address] Dr. Hai Pope #0.2 103/ulNormal0.0-0.7The [facility] CenterComment on above: Performed By: #### CMP #### [facility] [address] [place] [address] Dr. Hai Brightosinophils/100 WBC (Bld)2.7 %Normal0.9-7.0[facility] Comment on above:Performed By: #### CMP #### [facility] [address] [place] [address] Dr. Hai Brightrythrocyte distribution width (RBC) [Ratio]15.3 %Critically high 11.0-15.0The [facility] CenterComment on above:Performed By: #### CMP #### [facility] [address] [place] [address] Dr. Hai WilliamsonHematocrit (Bld) [Volume fraction]59.0 %Critically high36.0-48.0 The [facility] CenterComment on above:Performed By: #### CMP #### [facility] [address] [place] [address] Dr. Hai WilliamsonHemoglobin (Bld) [Mass/Vol]19.1 g/dLCritically high12.0-16.0The [facility] CenterComment on above:Performed By: #### CMP #### [facility] [address] [place] [address] #0.02 10e3/ulNormal0.00-0.03The [facility] CenterComment on above:Performed By: #### CMP #### [facility] [address] [place] [address] %0.3 %Normal0.0-0.5The [facility] CenterComment on above: Performed By: #### CMP #### [facility] [address] [place] [address] Dr. Hai Herron #1.9 103/ulNormal1.2-3.8The [facility] CenterComment on above:Performed By: #### CMP #### [facility] [address] [place] [address] Dr. Hai Camilohocytes/100 WBC (Bld)28.4 %Qruxfa32.5-60.0The [facility] CenterComment on above:Performed By: #### CMP #### [facility] [address] [place] [address] Dr. Hai NguyenUAL DIFF REQNONormalThe [facility] CenterComment on above: Performed By: #### CMP #### [facility] [address] [place] [address] Dr. Hai Richardson (RBC) [Entitic mass]30.8 ivXtnegk78.7-34.0The [facility] CenterComment on above:Performed By: #### CMP #### [facility] [address] [place] [address] Dr. Hai Armstrong (RBC) [Mass/Vol]32.4 g/vSTtavja10.9-35.2The [facility] CenterComment on above:Performed By: #### CMP #### [facility] [address] [place] [address] Dr. Hai Armstrong (RBC) [Entitic vol]95.0 gHZsxase36.0-99.0The [facility] CenterComment on above:Performed By: #### CMP #### [facility] [address] [place] [address] Dr. Hai Gamez #0.7 103/ulNormal0.3-0.8The [facility] CenterComment on above:Performed By: #### CMP #### [facility] [address] [place] [address] Dr. Hai Hanleyocytes/100 WBC (Bld)10.4 %Normal1.7-12.0The [facility] Comment on above:Performed By: #### CMP #### [facility] [address] [place] [address] Dr. Hai GarciaUT #3.8 103/ulNormal1.4-6.5The [facility] CenterComment on above:Performed By: #### CMP #### [facility] [address] [place] [address] Dr. Hai Garciautrophils/100 WBC (Bld)57.0 %Pzzjnu83.0-75.0The [facility] CenterComment on above:Performed By: #### CMP #### [facility] [address] [place] [address] Dr. Hai Quiroz mean volume (Bld) [Entitic vol]8.7 fLCritically low 9.5-13.5The [facility] CenterComment on above:Performed By: #### CMP #### [facility] [address] [address] [address] Hai WilliamsonPLT168 103/xxFwtdts620-215Ymf [facility] CenterComment on above: Performed By: #### CMP #### [facility] [address] [address] [address] Hai WilliamsonRBC6.21 106/ulCritically high4.20-5.40The [facility] Comment on above:Performed By: #### CMP #### [facility] [address] [address] [address] Hai WilliamsonWBC6.6 103/ulNormal4.0-11.0The [facility] CenterComment on above: Performed By: #### CMP #### [facility] [address] [place] [address] Dr. Hai WilliamsonGLYCOHEMOGLOBIN A1Con [id number] RECOMMENDATIONADA THERAPEUTIC TARGET 6.0 - 7.0 ACTION SUGGESTED > 7.0NoCleveland Clinic Euclid HospitalComment on above:Performed By: #### A1C #### [facility] [address] [address] [address] Hai WilliamsonGlucose [Mass/Vol]249 mg/dLNoCleveland Clinic Euclid HospitalComment on above:Performed By: #### A1C #### [facility] [address] [address] [address] Hai WilliamsonHbA1c (Bld) [Mass fraction]10.3 %Critically high<=6.0The [facility] CenterComment on above:Performed By: #### A1C #### [facility] [address] [place] [address] Dr. Hai WilliamsonPERIPHERAL SMEARon [id number] Cyto stain Nom (Cvx/Vag) [ID]DR. RUBY YanezCleveland Clinic Euclid HospitalComment on above:Result Comment: Review of peripheral smear reveals erythrocytosis. No schistocytes [...] analysis of peripheral blood is recommended. CPT 89168 Fatoumata Duckworth MD 1-5-56Xgtgoowdf By: #### CMP #### [facility] [address] [place] [address] Dr. Hai WilliamsonPROF 14(COMP METB)on [id number] [Mass/Vol]3.3 g/dL Critically low3.4-5.0The [facility] CenterComment on above:Performed By: #### CMP #### [facility] [address] [place] [address] Dr. Hai WilliamsonAlbumin/Globulin [Mass ratio]0.8 {ratio}NormalThe [facility] CenterComment on above:Performed By: #### CMP #### [facility] [address] [place] [address] Dr. Hai RodP [Catalytic activity/Vol]127 U/LCritically ubuz76-417Hlb [facility] CenterComment on above:Performed By: #### CMP #### [facility] [address] [place] [address] Dr. Hai Keys [Catalytic activity/Vol]45 U/WLsrgca40-57Tfi [facility] CenterComment on above:Performed By: #### CMP #### [facility] [address] [place] [address] Dr. Hai Dejesus gap [Moles/Vol]14.1 mmol/LNormalThe [facility] Comment on above:Performed By: #### CMP #### [facility] [address] [place] [address] Dr. Hai WilliamsonAST [Catalytic activity/Vol]29 U/NSyuuno16-78Spu [facility] CenterComment on above:Performed By: #### CMP #### [facility] [address] [place] [address] Dr. Hai WilliamsonBilirubin [Mass/Vol]0.7 mg/dLNormal0.2-1.3The [facility] Comment on above:Performed By: #### CMP #### [facility] [address] [address] [address] Hai WilliamsonCalcium [Mass/Vol]8.5 mg/dLNormal8.5-10.1The [facility] Comment on above:Performed By: #### CMP #### [facility] [address] [address] [address] Hai WilliamsonChloride [Moles/Vol]103 mmol/OPkhzdy17-640Wdl [facility] Comment on above:Performed By: #### CMP #### [facility] [address] [place] [address] Dr. Hai WilliamsonCO2 [Moles/Vol]28.8 mmol/OQbksvx68.0-30.0The [facility] Comment on above:Performed By: #### CMP #### [facility] [address] [place] [address] Dr. Hai WilliamsonCreatinine [Mass/Vol]0.54 mg/dLNormal0.52-1.04The [facility] CenterComment on above:Performed By: #### CMP #### [facility] [address] [place] [address] Dr. Hai BrightGFR-AF INDONESIAN>60Normal>=60The [facility] CenterComment on above:Performed By: #### CMP #### [facility] [address] [place] [address] Dr. Hai BrightGFR-NON AF INDONESIAN>60Normal>=60The [facility] CenterComment on above:Performed By: #### CMP #### [facility] [address] [place] [address] Dr. Hai WilliamsonGlobulin (S) [Mass/Vol]4.2 g/dLNormalThe [facility] CenterComment on above:Performed By: #### CMP #### [facility] [address] [place] [address] Dr. Hai WilliamsonGlucose [Mass/Vol]180 mg/dLCritically khab86-629Tqb [facility] CenterComment on above:Performed By: #### CMP #### [facility] [address] [place] [address] Dr. Hai WilliamsonPotassium [Moles/Vol]3.9 mmol/LNormal3.4-5.0The [facility] Comment on above:Performed By: #### CMP #### [facility] [address] [address] [address] Hai WilliamsonProtein [Mass/Vol]7.5 g/dLNormal6.1-8.2[facility] Comment on above:Performed By: #### CMP #### [facility] [address] [address] [address] Hai WilliamsonSodium [Moles/Vol]142 mmol/ELgbdkg991-684Ced [facility] Comment on above:Performed By: #### CMP #### [facility] [address] [address] [address] Hai WilliamsonUrea nitrogen [Mass/Vol]7.0 mg/dLNormal7.0-18.0The [facility] CenterComment on above:Performed By: #### CMP #### [facility] [address] [address] [address] Hai العلي nitrogen/Creatinine [Mass ratio]13.0 mg/mgNormalThe [facility] CenterComment on above:Performed By: #### CMP #### [facility] [address] [place] [address] Dr. Hai WilliamsonMG MAMM SCREEN 3D JULIET CADon [id number] MAMM SCREEN 3D JULIET CAD Patient: CONRADO ABEBE Exam Date: 01/29/2022 : 1970 Gender:F Ordering : DR LI GREENWOOD . Admission #: [id number] Family : Order #: [id number] CLICK HERE TO VIEW EXAM RADIOLOGY REPORT [...] bladder cancer at age 72. LOCATION: The [facility] BREAST COMPOSITION: Scattered areas fibroglandular density. FINDINGS: [...] by: Nancy Abebe MD on 01/30/2022 at 08:04[facility] AUTO DIFFon [id number] #0.1 103/ulNormal0.0-0.1[facility] HospitalComment on above:Performed By: #### CMP #### [facility] [address] [place] [address] Dr. Hai WilliamsonBasophils/100 WBC (Bld)1.0 %Normal0.2-2.0[facility] Comment on above:Performed By: #### CMP #### [facility] [address] [place] [address] Dr. Hai Pope #0.1 103/ulNormal0.0-0.7The [facility] CenterComment on above: Performed By: #### CMP #### [facility] [address] [place] [address] Dr. Hai Brightosinophils/100 WBC (Bld)1.7 %Normal0.9-7.0The [facility] Comment on above:Performed By: #### CMP #### [facility] [address] [place] [address] Dr. Hai Brightrythrocyte distribution width (RBC) [Ratio]15.9 %Critically high 11.0-15.0The [facility] CenterComment on above:Performed By: #### CMP #### [facility] [address] [place] [address] Dr. Hai WilliamsonHematocrit (Bld) [Volume fraction]65.5 %Critically high36.0-48.0 The [facility] CenterComment on above:Performed By: #### CMP #### [facility] [address] [address] [address] Hai WilliamsonHemoglobin (Bld) [Mass/Vol]21.8 g/dLCritically high12.0-16.0The [facility] CenterComment on above:Performed By: #### CMP #### [facility] [address] [place] [address] #0.02 10e3/ulNormal0.00-0.03The [facility] CenterComment on above:Performed By: #### CMP #### [facility] [address] [place] [address] %0.3 %Normal0.0-0.5The [facility] CenterCommclaren [place] on above: Performed By: #### CMP #### [facility] [address] [place] [address] Dr. Hai Herron #2.5 103/ulNormal1.2-3.8The [facility] CenterCommclaren [place] on above:Performed By: #### CMP #### [facility] [address] [place] [address] Dr. Hai Camilohocytes/100 WBC (Bld)34.8 %Ibfsek23.5-60.0The [facility] CenterCommclaren [place] on above:Performed By: #### CMP #### [facility] [address] [place] [address] Dr. Hai NguyenUAL DIFF REQNONormalThe [facility] CenterComment on above: Performed By: #### CMP #### [facility] [address] [place] [address] Dr. Hai Armstrong (RBC) [Entitic mass]31.6 uaYamvlp82.7-34.0The [facility] CenterComment on above:Performed By: #### CMP #### [facility] [address] [place] [address] Dr. Hai Armstrong (RBC) [Mass/Vol]33.3 g/cJXfujjx32.9-35.2The [facility] CenterComment on above:Performed By: #### CMP #### [facility] [address] [place] [address] Dr. Hai ArmstrongV (RBC) [Entitic vol]94.9 lUPewjpd90.0-99.0The [facility] CenterComment on above:Performed By: #### CMP #### [facility] [address] [place] [address] Dr. Hai Gamez #0.6 103/ulNormal0.3-0.8The [facility] CenterComment on above:Performed By: #### CMP #### [facility] [address] [place] [address] Dr. Hai Hanleyocytes/100 WBC (Bld)7.7 %Normal1.7-12.0The [facility] on above:Performed By: #### CMP #### [facility] [address] [place] [address] Dr. Hai Mayer #3.9 103/ulNormal1.4-6.5The [facility] CenterComment on above:Performed By: #### CMP #### [facility] [address] [place] [address] Dr. Hai Garciautrophils/100 WBC (Bld)54.5 %Figczu32.0-75.0The [facility] CenterComment on above:Performed By: #### CMP #### [facility] [address] [place] [address] Dr. Hai Amadolet mean volume (Bld) [Entitic vol]9.8 fLNormal9.5-13.5The [facility] CenterComment on above:Performed By: #### CMP #### [facility] [address] [place] [address] Dr. Hai WilliamsonPLT154 103/brBywhms613-568Wod [facility] CenterComment on above: Performed By: #### CMP #### [facility] [address] [place] [address] Dr. Hai WilliamsonRBC6.90 106/ulCritically high4.20-5.40[facility] Comment on above:Performed By: #### CMP #### [facility] [address] [address] [address] Hai WilliamsonWBC7.2 103/ulNormal4.0-11.0[facility] HospitalComment on above: Performed By: #### CMP #### [facility] [address] [address] [address] Hai GodoyRECT LDLon 30-14-0945Mnrauqoquuo in LDL [Mass/Vol]204 mg/dL NormalBluffton HospitalComment on above:Performed By: #### LIPID, CMP, T7, TSH, DLDL #### [facility] [address] [place] [address] Dr. Hai WilliamsonDLDL NORMALSEE [facility] Medical CenterComment on above: Result Comment: <100 mg/dl OPTIMAL 100 - 129 mg/dl NEAR OR ABOVE OPTIMAL 130 - 159 mg/dl BORDERLINE HIGH 160 - 189 mg/dl HIGH >190 mg/dl VERY HIGHPerformed By: #### LIPID, CMP, T7, TSH, DLDL #### [facility] [address] [place] [address] Dr. Hai Field THYROXINE INDEX T7on 97-21-3045ZWM4.73NoCleveland Clinic Euclid HospitalComment on above:Performed By: #### LIPID, CMP, T7, TSH, DLDL #### [facility] [address] [place] [address] Dr. Hai WilliamsonT3U31.0 %Hyqefx94.5-40.5The [facility] CenterComment on above: Performed By: #### LIPID, CMP, T7, TSH, DLDL #### [facility] [address] [address] [address] Hai WilliamsonT4 [Mass/Vol]8.80 ug/dLNormal5.53-11.00[facility] Comment on above:Performed By: #### LIPID, CMP, T7, TSH, DLDL #### [facility] [address] [place] [address] Dr. Hai WilliamsonGLYCOHEMOGLOBIN A1Con 42-25-7915PGM RECOMMENDATIONADA THERAPEUTIC TARGET 6.0 - 7.0 ACTION SUGGESTED > 7.0[facility] HospitalComment on above:Performed By: #### CMP #### [facility] [address] [place] [address] Dr. Hai WilliamsonGlucose [Mass/Vol]246 mg/dLDelaware County HospitalComment on above:Performed By: #### CMP #### [facility] [address] [address] [address] Hai WilliamsonHbA1c (Bld) [Mass fraction]10.2 %Critically high<=6.0The [facility] CenterComment on above:Performed By: #### CMP #### [facility] [address] [place] [address] Dr. Hai Melchor 45-28-7890Mjwy [Mass/Vol]145.0 ug/qSZpfobh01.0-170.0The [facility] CenterComment on above:Performed By: #### IRON #### [facility] [address] [place] [address] Dr. Hai WilliamsonLIPID PROFILEon [id number]-HDL RATIO NORMSEE BELOWDelaware County HospitalComment on above:Result Comment: 3.3 - 4.4 LOW RISK 4.4 - 7.1 AVERAGE RISK 7.1 - 11.0 MODERATE RISK >11.0 HIGH RISKPerformed By: #### LIPID, CMP, T7, TSH, DLDL #### [facility] [address] [address] [address] Hai WilliamsonCholesterol [Mass/Vol]332 mg/dLCritically high<=200The [facility] CenterCommclaren [facility] [place] on above:Performed By: #### LIPID, CMP, T7, TSH, DLDL #### [facility] [address] [place] [address] Dr. Hai WilliamsonCholesterol in HDL [Mass/Vol]40 mg/dLDelaware County Hospital Comment on above:Performed By: #### LIPID, CMP, T7, TSH, DLDL #### [facility] [address] [address] [address] Hai WilliamsonCholesterol.total/Cholesterol in HDL [Mass ratio]8.3 {ratio} NormalThe [facility] on above:Performed By: #### LIPID, CMP, T7, TSH, DLDL #### [facility] [address] [address] [address] Hai Vee NORMAL> or = 60 mg/dl - LOW CARDIOVASCULAR RISK <40 mg/dl - HIGH CARDIOVASCULAR RISKNormalThe [facility] CenterCommclaren [place] on above:Performed By: #### LIPID, CMP, T7, TSH, DLDL #### [facility] [address] [address] [address] Hai WilliamsonTriglyceride [Mass/Vol]441 mg/dLCritically high<=150The [facility] on above:Performed By: #### LIPID, CMP, T7, TSH, DLDL #### [facility] [address] [place] [address] Dr. Hai WilliamsonPROSakina 14(COMP METB)on 99-34-3867Ctamtnb [Mass/Vol]3.2 g/dL Critically low3.5-5.0[facility] on above:Performed By: #### LIPID, CMP, T7, TSH, DLDL #### [facility] [address] [place] [address] Dr. Hai WilliamsonAlbumin/Globulin [Mass ratio]0.7 {ratio}NormalThe [facility] on above:Performed By: #### LIPID, CMP, T7, TSH, DLDL #### [facility] [address] [place] [address] Dr. Hai Haile [Catalytic activity/Vol]191 U/LCritically widh57-266Mzs [facility] on above:Performed By: #### LIPID, CMP, T7, TSH, DLDL #### [facility] [address] [place] [address] Dr. Hai Keys [Catalytic activity/Vol]118 U/LCritically high9-52The [facility] on above:Performed By: #### LIPID, CMP, T7, TSH, DLDL #### [facility] [address] [address] [address] Hai WilliamsonAnion gap [Moles/Vol]9.7 mmol/LNormalThe [facility] CenterComment on above:Performed By: #### LIPID, CMP, T7, TSH, DLDL #### [facility] [address] [place] [address] Dr. Hai WilliamsonAST [Catalytic activity/Vol]74 U/LCritically trxu47-89Myh [facility] CenterComment on above:Performed By: #### LIPID, CMP, T7, TSH, DLDL #### [facility] [address] [place] [address] Dr. Hai WilliamsonBilirubin [Mass/Vol]1.0 mg/dLNormal0.2-1.3The [facility] Comment on above:Performed By: #### LIPID, CMP, T7, TSH, DLDL #### [facility] [address] [place] [address] Dr. Hai WilliamsonCalcium [Mass/Vol]9.5 mg/dLNormal8.4-10.2[facility] Comment on above:Performed By: #### LIPID, CMP, T7, TSH, DLDL #### [facility] [address] [place] [address] Dr. Hai WilliamsonChloride [Moles/Vol]99 mmol/PBevelb37-251Lkd [facility] Comment on above:Performed By: #### LIPID, CMP, T7, TSH, DLDL #### [facility] [address] [place] [address] Dr. Hai WilliamsonCO2 [Moles/Vol]28.8 mmol/DNhqoez60.0-30.0The [facility] Comment on above:Performed By: #### LIPID, CMP, T7, TSH, DLDL #### [facility] [address] [place] [address] Dr. Hai WilliamsonCreatinine [Mass/Vol]0.60 mg/dLNormal0.52-1.04The [facility] CenterComment on above:Performed By: #### LIPID, CMP, T7, TSH, DLDL #### [facility] [address] [address] [address] Hai BrightGFR-AF INDONESIAN>60Normal>=60The [facility] Hospitalment on above:Performed By: #### LIPID, CMP, T7, TSH, DLDL #### [facility] [address] [place] [address] Dr. Hai BrightGFR-NON AF INDONESIAN>60Normal>=60The [facility] CenterComment on above:Performed By: #### LIPID, CMP, T7, TSH, DLDL #### [facility] [address] [place] [address] Dr. Hai WilliamsonGlobulin (S) [Mass/Vol]4.7 g/dLNormalThe [facility] CenterComment on above:Performed By: #### LIPID, CMP, T7, TSH, DLDL #### [facility] [address] [place] [address] Dr. Hai WilliamsonGlucose [Mass/Vol]346 mg/dLCritically dlso52-105GivWilson Health on above:Performed By: #### LIPID, CMP, T7, TSH, DLDL #### [facility] [address] [place] [address] Dr. Hai WilliamsonPotassium [Moles/Vol]4.5 mmol/LNormal3.4-5.0[facility] Comment on above:Performed By: #### LIPID, CMP, T7, TSH, DLDL #### [facility] [address] [place] [address] Dr. Hai WilliamsonProtein [Mass/Vol]7.9 g/dLNormal6.1-8.2The [facility] Comment on above:Performed By: #### LIPID, CMP, T7, TSH, DLDL #### [facility] [address] [place] [address] Dr. Hai WilliamsonSodium [Moles/Vol]133 mmol/LCritically lle930-630Cml [facility] on above:Performed By: #### LIPID, CMP, T7, TSH, DLDL #### [facility] [address] [place] [address] Dr. Hai العلي nitrogen [Mass/Vol]12.0 mg/dLNormal7.0-17.0The [facility] CenterComment on above:Performed By: #### LIPID, CMP, T7, TSH, DLDL #### [facility] [address] [place] [address] Dr. Hai العلي nitrogen/Creatinine [Mass ratio]20.0 mg/mgNoCleveland Clinic Euclid HospitalComment on above:Performed By: #### LIPID, CMP, T7, TSH, DLDL #### [facility] [address] [place] [address] Dr. Hai Cortes 79-27-1810NJE0.090 uIU/mLNormal0.470-4.680The [facility] CenterComment on above:Performed By: #### LIPID, CMP, T7, TSH, DLDL #### [facility] [address] [place] [address] Dr. Hai Taylor [facility] BELOWNoCleveland Clinic Euclid HospitalComment on above: Result Comment: <0.34 UIU/ml HYPERTHYROID 0.34-5.60 UIU/ml EUTHYROID >5.60 UIU/ml HYPOTHYROIDPerformed By: #### LIPID, CMP, T7, TSH, DLDL #### [facility] [address] [place] [address] Dr. Hai WilliamsonCovid-19 PCR ([facility])on 15-85-6454HLTV-CoV-2 (COVID-19) RNA MICHAEL+probe Ql (Unsp spec)Not detectedNormalNOT DETECTEDThe [facility] Comment on above:Result Comment: This test is not yet approved or cleared by the [place] FDA. When there are no FDA-approved or cleared tests available, and other criteria are met, FDA can make tests available under an emergency access mechanism called an Emergency Use Authorization (EUA). The EUA for this test is supported by the [employer] Worker of Health and Human Service's (HHS's) declaration that circumstances exist to justify the emergency use of in vitro diagnostics for the detection and/or diagnosis of the virus that causes COVID- 19. This EUA will remain in effect (meaning [...] of clinical signs and symptoms consistent with SARS-CoV-2.Performed By: #### CMP #### [facility] [address] [place] [address] Dr. Hai Echeverria ABSCESSon 36-61-6903DNBYNOT ABSCESSSpecimen Comments: Abscess on right buttock Culture Observations: [...] <=0.25 S F Levofloxacin <=0.12 S F Trimethoprim/Sulfamethoxazole <=20 S FNormalThe [facility] CenterComment on above:Performed By: #### CMP #### [facility] [address] [place] [address] Dr. Hai Jones AUTO DIFFon 82-84-6096VFXU #0.1 103/ulNormal0.0-0.1The [facility] CenterComment on above:Performed By: #### CBC #### [facility] [address] [place], [place] [id number] Meenu KarenBasophils/100 WBC (Bld)0.5 %Normal0.2-2.0[facility] Comment on above:Performed By: #### CBC #### [facility] [address] [place] [address] Meenu KarenEO #0.2 103/ulNormal0.0-0.7The [facility] CenterComment on above: Performed By: #### CBC #### [facility] [address] [place] [address] Meenu KarenEosinophils/100 WBC (Bld)1.4 %Normal0.9-7.0The [facility] Comment on above:Performed By: #### CBC #### [facility] [address] [place] [address] Meenu KarenErythrocyte distribution width (RBC) [Ratio]14.0 %Kcqacl41.0-15.0The [facility] CenterComment on above:Performed By: #### CBC #### [facility] [address] [place] [address] Meenu KarenHematocrit (Bld) [Volume fraction]53.1 %Critically high36.0-48.0The [facility] CenterComment on above:Performed By: #### CBC #### [facility] [address] [place] [address] Meenu KarenHemoglobin (Bld) [Mass/Vol]17.6 g/dLCritically high12.0-16.0The [facility] CenterComment on above:Performed By: #### CBC #### [facility] [address] [place] [address] Meenu KarenIG #0.07 10e3/ulCritically high0.00-0.03The [facility] CenterComment on above:Performed By: #### CBC #### [facility] [address] [place] [address] Meenu KarenIG %0.5 %Normal0.0-0.5The [facility] CenterComment on above: Performed By: #### CBC #### [facility] [address] [place] [address] Meenu KarenLYMPH #3.0 103/ulNormal1.2-3.8The [facility] CenterComment on above: Performed By: #### CBC #### [facility] [address] [place] [address] Meenu KarenLymphocytes/100 WBC (Bld)20.5 %Kpvlvp55.5-60.0[facility] Comment on above:Performed By: #### CBC #### [facility] [address] [place] [address] Meenu KarenMANUAL DIFF REQNONormalThe [facility] CenterComment on above: Performed By: #### CBC #### [facility] [address] [place] [address] Meenu BautistaMCH (RBC) [Entitic mass]31.7 nxPhbdmb88.7-34.0[facility] Comment on above:Performed By: #### CBC #### [facility] [address] [place] [address] Meenu KarantoinoMCHC (RBC) [Mass/Vol]33.1 g/nHZpwykz08.9-35.2[facility] Comment on above:Performed By: #### CBC #### [facility] [address] [place] [address] Meenu BautistaMCV (RBC) [Entitic vol]95.7 xXDzmlkr61.0-99.0[facility] Comment on above:Performed By: #### CBC #### [facility] [address] [place] [address] Meenu KarantonioMONO #1.0 103/ulCritically high0.3-0.8The [facility] CenterComment on above:Performed By: #### CBC #### [facility] [address] [place] [address] Meenu KarenMonocytes/100 WBC (Bld)7.1 %Normal1.7-12.0[facility] Comment on above:Performed By: #### CBC #### [facility] [address] [place] [address] Meenu CramerenNEUT #10.1 103/ulCritically high1.4-6.5The [facility] CenterComment on above:Performed By: #### CBC #### [facility] [address] [place] [address] Meenu KarenNeutrophils/100 WBC (Bld)70.0 %Cuprol91.0-75.0[facility] Comment on above:Performed By: #### CBC #### [facility] [address] [place] [address] Meenu KarenPlatelet mean volume (Bld) [Entitic vol]9.5 fLNormal9.5-13.5The [facility] CenterComment on above:Performed By: #### CBC #### [facility] [address] [place] [address] Meenu WktbjOWT217 103/vwLrldmt261-983Eod [facility] CenterComment on above: Performed By: #### CBC #### [facility] [address] [place] [address] Meenu KarenRBC5.55 106/ulCritically high4.20-5.40The [facility] CenterComment on above:Performed By: #### CBC #### [facility] [address] [place] [address] Meenu HznpqQUT52.4 103/ulCritically high4.0-11.0The [facility] CenterComment on above:Performed By: #### CBC #### [facility] [address] [place] [address] Meenu KarenCULTURE BLOODon 10-10-9999Bjygqstvlps examination of blood, culture Culture Observations: NO GROWTH AT 5 DAYS.NormalThe [facility] CenterComment on above:Performed By: #### CMP #### [facility] [address] [place] [address] Dr. Hai Franco CHEM 8 (BAS METB)on 34-22-9643Cseyh gap [Moles/Vol]13.0 mmol/LNormalThe [facility] CenterComment on above:Performed By: #### BMP #### [facility] [address] [place] [address] Meenu KarenCalcium [Mass/Vol]9.2 mg/dLNormal8.4-10.2The [facility] Comment on above:Performed By: #### BMP #### [facility] [address] [place] [address] Meenu KarenChloride [Moles/Vol]100 mmol/ATgqaza65-849Lep [facility] Comment on above:Performed By: #### BMP #### [facility] [address] [address] Meenu KarenCO2 [Moles/Vol]28.3 mmol/MGjmpmf18.0-30.0The [facility] Comment on above:Performed By: #### BMP #### [facility] [address] [place] [address] Meeun KarenCreatinine [Mass/Vol]0.89 mg/dLNormal0.52-1.04[facility] Comment on above:Performed By: #### BMP #### [facility] [address] [place] [address] Meenu KarenEGFR-AF INDONESIAN>60Normal>=60The [facility] CenterComment on above: Performed By: #### BMP #### [facility] [address] [place] [address] Meenu KarenEGFR-NON AF INDONESIAN>60Normal>=60[facility] HospitalComment on above:Performed By: #### BMP #### [facility] [address] [place] [address] Meenu KarenGlucose [Mass/Vol]377 mg/dLCritically anop69-249SdgBluffton HospitalComment on above:Performed By: #### BMP #### [facility] [address] [place] [address] Meenu KarenPotassium [Moles/Vol]4.3 mmol/LNormal3.4-5.0[facility] Comment on above:Performed By: #### BMP #### [facility] [address] [place] [address] Meenu KarenSodium [Moles/Vol]137 mmol/IMrbood408-390SvyBluffton Hospital Comment on above:Performed By: #### BMP #### [facility] [address] [place] [address] Meenu KarenUrea nitrogen [Mass/Vol]16.0 mg/dLNormal7.0-17.0[facility] HospitalComment on above:Performed By: #### BMP #### [facility] [address] [place], [place] [address] Meenu BautistaUrea nitrogen/Creatinine [Mass ratio]18.0 mg/mgNoCleveland Clinic Euclid HospitalComment on above:Performed By: #### BMP #### [facility] [address], [place] [address] Meenu Bautista Vital Signs Date TimeVital SignValuePerforming DdbxxhsjvOcdewkir00-99-6283 12:02-0500Body gfvlzivzvbq67.24 [degF]Kevin Sadler [address]02-02-2025 12:02-0500 Diastolic blood tutspaed28 mm[Hg]Kevin Sadler [address]02-02-2025 12:02-0500Heart rate88 /minKevin Sadler [address]02-02-2025 12:02-0500 Respiratory rate16 /minMiclevon Sadler [address] [place], [place] 462[address]02-02-2025 12:02-4585DqD0% (BldA) [Mass fraction]96 %Kevin Sadler [address] [place], [place] 4621802-02-2025 12:02-0500 Systolic blood fltzsady541 mm[Hg]Kevin Sadler [address]01-18-2025 16:21-0500Body cngsiczefpl43.24 [degF][facility]01-18-2025 16:21-0500Diastolic blood nrsiqjnp04 mm[Hg][facility]01-18-2025 16:21-0500Heart rate92 /minC[facility]01-18-2025 16:21-0500Respiratory rate16 /minC[facility]01-18-2025 16:21-1237TfV7% (BldA) [Mass fraction]98 %[facility]01-18-2025 16:21-0500Systolic blood pressure 149 mm[Hg][facility]04-13-2024 21:23-0400Body .06 [degF]Lucien Sandip [address] [place], [place] 4621804-13-2024 21:23-0400 Diastolic blood weyobrrb49 mm[Hg]Lucien Sandip [address] [place], [place] 4621804-13-2024 21:23-0400Heart rate87 /minNoah Sandip [address] [place], [place] 4621804-13-2024 21:23-0400 Respiratory rate18 /minNoah Sandip [address] [place], [place] 4621804-13-2024 21:23-7734BwN0% (BldA) [Mass fraction]96 %Lucien Sandip [address] [place], [place] 4621804-13-2024 21:23-0400 Systolic blood tvphcylr982 mm[Hg]Lucien Sandip [address] [place], [place] 462[address]02-05-2024 16:02-0500Blood Pressure LocationOsiel Barillasey [phone]-SdupjK[facility] Eedl04-74-4662 16:02-0500Body uvezekibrku99.34 [degF]Osiel Sanchez [phone]-HflyeK[facility] Yyds71-69-9138 16:02-0500Diastolic blood ftymophl87 mm[Hg]Osiel Barillasey [phone]-UyjtzK[facility] Rjro16-11-0013 16:02-0500Heart rate84 /minOsiel Barillasey [phone]-Ptxtz[address] [place] [address] [facility] Cjnh56-13-1192 16:02-9159KeY0% (BldA) [Mass fraction]97 %Osiel Bradford [phone]-IcrchK[facility] Udad07-80-0655 16:02-0500Systolic blood mm[Hg]Osiel Bradford [phone]-ImnifK[facility] Ghof15-65-9591 18:09-0500Body qsfldslhfca90.88 [degF]Vasquez Ash [facility]01-27-2024 18:09-0500 Diastolic blood mm[Hg]Vasquez Ash [address] [place], [place] 462[address]01-27-2024 18:09-0500Heart rate76 /minTim Mihir [facility]01-27-2024 18:09-0500 Respiratory rate18 /minVasquez Ash [facility]01-27-2024 18:09-1651BpL8% (BldA) [Mass fraction]99 %Vasquez Ash [facility]01-27-2024 18:09-0500 Systolic blood bynmirxa279 mm[Hg]Vasquez Ash [facility]01-21-2024 10:37-0500Blood Pressure Jessica Hayward [phone]-DkaljKet[facility] Yhiy81-12-7206 10:37-0500Body nhnavgbsagd53.88 [degF]Baldo Hayward 103-2755Yreitf-BmudoK[facility] Vgjs54-24-0685 10:37-0500Diastolic blood imyhcfaw96 mm[Hg]Baldo Hayward 100-4061Jfpxjy-Caxcx[address] [place] [address] [facility] Qnaw07-52-4030 10:37-0500Heart rate97 /minDbilln Yesy 399-4086Sjeqas-Rayel[address] [place] [address] [facility] Yiqm97-59-2040 10:37-5077FlG7% (BldA) [Mass fraction]97 %Baldo Hayward [phone]-RkmeeKet[facility] Lfpt07-13-8690 10:37-0500Systolic blood lsduiaku353 mm[Hg]Baldo Hayward [phone]-WdvdmK[facility] Zkid72-37-2828 10:08-0500Blood Pressure LocationMichael NILL [phone]-HwdqsK[facility] [place] 12-07-2023 10:08-0500Diastolic blood szuhvdff49 mm[Hg]Kevin AKBARHelen [phone]-XltayK[facility] [place] 12-07-2023 10:08-0500Heart htzl500 /minMichael NILL [phone]-GbvbzK[facility] [place] 12-07-2023 10:08-0500Respiratory rate16 /minMichael NILL 350-3915Srxipe-ClxpkK[facility] [place] 12-07-2023 10:08-0500Systolic blood lmkowsyd211 mm[Hg]Kevin NILL [phone]-BiyjmK[facility] [place] 11-30-2023 10:24-0500Diastolic blood sacjboga65 mm[Hg]Jose Lopez [facility]01-02-2024 10:24-0500Heart rate90 /minJoedwar Lopez [facility]01-02-2024 10:24-0500 Respiratory rate16 /minJoedwar Lopez [facility]01-02-2024 10:24-4082YyW2% (BldA) [Mass fraction]96 %Jose Lopez [facility]01-02-2024 10:24-0500 Systolic blood tswidjlj685 mm[Hg]Jose Lopez [address] [place], [place] 4621801-02-2024 08:59-0500Body xztlpujyiwc13.88 [degF]Jose Lopez [address] [place], [place] 4621801-02-2024 08:59-0500 Diastolic blood gcclelcv86 mm[Hg]Jose Lopez [address] [place], [place] 4621801-02-2024 08:59-0500Heart hvnh852 /minJose Lopez [address] [place], [place] 4621801-02-2024 08:59-0500 Respiratory rate18 /minJose Lopez [address] [place], [place] 4621801-02-2024 08:59-2554KyI3% (BldA) [Mass fraction]98 %Jose Lopez [address] [place], [place] 4621801-02-2024 08:59-0500 Systolic blood trmuuzax235 mm[Hg]Jose Lopez [address] [place] [address] Encounters Encounter DateEncounter TypeCare ProviderFacilityStart: 12-31-2024 End: 03-31-3855Vwrqskyer department patient visitMiclevon Sadler [address] [place] [address] Start: 12-16-2024 End: 17-26-7980Txbfzmkbx department patient visitAstrit Efrain SunnyT[facility] Start: 03-11-2024 End: 84-16-9456Iugogcvyk department patient visitNobecky Oropeza [facility] Start: 01-03-2024 End: 32-88-6308fhlzevhcjnCjrtt M. DempseyFacility:CC Emily: 01-03-2024 End: 49-19-9717Tinrohw encounter procedureOsiel Bradford [phone]-ItwtoK[facility] Start: 12-25-2023 End: 65-24-7140Xqktcdowg department patient visitTim Mihir [facility] Start: 12-19-2023 End: 53-46-5639Upvnydd encounter procedureBaldo Hayward [phone]-DnhwpK[facility] Start: 12-07-2023 End: 05-57-1203Rsgybvw encounter procedureMichael R NILL [phone]-CukkvKettering [facility] [place] Start: 11-30-2023 End: 62-06-2214Jhmbgvldz department patient visitJohn ParenteFacility:FTMCStart: 11-30-2023 End: 68-83-6178Yhluicisq department patient visitJohn Jessica [facility] Start: 44-77-5853iffqktwwarTJ LI HOYFacility:H1 Start: 02-28-2022 End: 10-32-6186eiqlxlqmxcHR LI HOYFacility:M4Nyzll: 01-29-2022 End: 16-27-2498pfvbsidbdnPU LI HOYFacility:T6Ktkyl: 01-35-9664Wsnkblize for general adult medical examination without abnormal findingsDR LI WOLFGANGYThe [facility]CMC [facility] Systemtart: 01-24-2022 End: 03-01-9979fqsiopnywtDS LI HOYFacility:B9Ozqio: 01-24-2022 End: 53-24-5079Uexokxjgj for general adult medical examination without abnormal findingsDR LI HOYFacility:U1Scsme: 12-19-2021 End: 89-24-8801yaylmodufrUQ LI HOYFacility:T7Gchrg: 07-19-2021 End: 48-69-8545gletcdeoabFQ LI HOYFacility:H1 Procedures DateProcedureProcedure DetailPerforming ClinicianCholecystectomyMichael NILL Immunizations Immunization DateImmunizationNotesCare JdyemvonImydbcxn33-95-5257qpyqqtu toxoid, reduced diphtheria toxoid, and acellular pertussis vaccine, adsorbedTim Mihir [facility] CenterNE[facility]ATED: Highlighted row has not occurred!39-82-6474GZKC-CoV-2 mRNA (tozinameran 5y-11y) vaccineJamie Sanchez [phone]-DtjnfK[facility]tering [facility] Convenient CareNEGATED: Highlighted row has not occurred!78-01-2310keocbqukn virus vaccine, unspecified formulationMichael NILL [phone]-JpuojKettering Health [facility] [place] Payers DatePayer CategoryPayerPolicy [id number] 2..[id number] 2.1.597461.[id number] 2..1.540661.3.5[id number] ..[id number] 2..1.324753.[id number] 2..1.634862.3.57[id number] 2..1.05882[id number] 2.16.840.1.738339.3.57[id number] 2.16.840.1.91942[id number] 2.16.840.1.469032.3.57[id number] 2.16.840.1.103106.3.57[id number] 2.16.0.1.654836.3.579.2.72549-33-7657Vvdr-[id number] [id number] Social History DateTypeDetailFacilityStart: 12-07-2023 End: 42-36-3723Jzssvkt smoking statusEx-smoker (finding)[facility] Nordoctors hospitalkTobacco smoking statusSmokeless tobacco user within last 30 daysK[facility] Hospitalex Ass[facility] BirthFemalW[facility] Functional Status WhsbQsirdktwfkXkcjldLshsoaav71-96-9552Uiccntgbjw StatusN/[facility]01-18-2025Functional StatusN/[facility]04-13-2024 Functional StatusN/[facility]02-05-2024Functional StatusN/A [facility] Bqeo56-02-1768Fpenunlbvm StatusN/[facility]01-21-2024Functional StatusN/[facility] Con[facility]ient Lxln92-78-7342Ypkieqcdul StatusN/[facility] Ahuwqqs67-46-6000Xfswnpcuza StatusN/[facility] Clinical Notes 11-30-2023 to 12-31-2024 Note Date & SysvIlqyUzjbcomt45-85-9602 Hospital Discharge instructions Patient Education 12/31/2024 14:38:49 Otitis Media, Adult Otitis Media, Adult Otitis media occurs when there is inflammation and fluid in the middle ear with signs and symptoms of an acute infection. The middle ear is a part of the ear that contains bones for hearing as well as air that helps send sounds to the brain. When infected fluid builds up in this space, it causes pressure and can lead to an ear infection. The eustachian tube connects the middle ear to the back of the nose (nasopharynx) and normally allows air into the middle ear. If the eustachian tube becomes blocked, fluid can build up and become infected. What are the causes? This condition is caused by a blockage in the eustachian tube. This can be caused by mucus or by swelling of the tube. Problems that can cause a blockage include: A cold or other upper respiratory infection. Allergies. An irritant, such as tobacco smoke. Enlarged adenoids. The adenoids are areas of soft tissue located high in the back of the throat, behind the nose and the roof of the mouth. They are part of the body's defense system (immune system). A mass in the nasopharynx. Damage to the ear caused by pressure changes (barotrauma). What increases the risk? You are more likely to develop this condition if you: Smoke or are exposed to tobacco smoke. Have an opening in the roof of your mouth (cleft palate). Have gastroesophageal reflux. Have an immune system disorder. What are the signs or symptoms? Symptoms of this condition include: Ear pain. Fever. Decreased hearing. Tiredness (lethargy). Fluid leaking from the ear, if the eardrum is ruptured or has burst. Ringing in the ear. How is this diagnosed? This condition is diagnosed with a physical exam. During the exam, your health care provider will use an instrument called an otoscope to look in your ear and check for redness, swelling, and fluid. He or she will also ask about your symptoms. Your health care provider may also order tests, such as: A pneumatic otoscopy. This is a test to check the movement of the eardrum. It is done by squeezing a small amount of air into the ear. A tympanogram. This is a test that shows how well the eardrum moves in response to air pressure in the ear canal. It provides a graph for your health care provider to review. How is this treated? This condition can go away on its own within 3 5 days. But if the condition is caused by a bacterial infection and does not go away on its own, or if it keeps coming back, your health care provider may: Prescribe antibiotic medicine to treat the infection. Prescribe or recommend medicines to control pain. Follow these instructions at home: Take zdpj-dxm-aqfcpvv and prescription medicines only as told by your health care provider. If you were prescribed an antibiotic medicine, take it as told by your health care provider. Do notstop taking the antibiotic even if you start to feel better. Keep all follow-up visits. This is important. Contact a health care provider if: You have bleeding from your nose. There is a lump on your neck. You are not feeling better in 5 days. You feel worse instead of better. Get help right away if: You have severe pain that is not controlled with medicine. You have swelling, redness, or pain around your ear. You have stiffness in your neck. A part of your face is not moving (paralyzed). The bone behind your ear (mastoid bone) is tender when you touch it. You develop a severe headache. Summary Otitis media is redness, soreness, and swelling of the middle ear, usually resulting in pain and decreased hearing. This condition can go away on its own within 3 5 days. If the problem does not go away in 3 5 days, your health care provider may give you medicines to treat the infection. If you were prescribed an antibiotic medicine, take it as told by your health care provider. Follow all instructions that were given to you by your health care provider. This information is not intended to replace advice given to you by your health care provider. Make sure you discuss any questions you have with your health care provider. Document Revised: 02/23/2022 Document Reviewed: 02/23/2022 [employer] Patient Education 2023 [employer]. 12/31/2024 14:38:49 Bacterial Conjunctivitis, Adult Bacterial Conjunctivitis, Adult Bacterial conjunctivitis is an infection of the clear membrane that covers the white part of the eye and the inner surface of the eyelid (conjunctiva). When the blood vessels in the conjunctiva become inflamed, the eye becomes red or pink. The eye often feels irritated or itchy. Bacterial conjunctivitis spreads easily from person to person (is contagious). It also spreads easily from one eye to the other eye. What are the causes? This condition is caused by bacteria. You may get the infection if you come into close contact with: A person who is infected with the bacteria. Items that are contaminated with the bacteria, such as a face towel, contact lens solution, or eye makeup. What increases the risk? You are more likely to develop this condition if: You are exposed to other people who have the infection. You wear contact lenses. You have a sinus infection. You have had a recent eye injury or surgery. You have a weak body defense system (immune system). You have a medical condition that causes dry eyes. What are the signs or symptoms? Symptoms of this condition include: Thick, yellowish discharge from the eye. This may turn into a crust on the eyelid overnight and cause your eyelids to stick together. Tearing or watery eyes. Itchy eyes. Burning feeling in your eyes. Eye redness. Swollen eyelids. Blurred vision. How is this diagnosed? This condition is diagnosed based on your symptoms and medical history. Your health care provider may also take a sample of discharge from your eye to find the cause of your infection. How is this treated? This condition may be treated with: Antibiotic eye drops or ointment to clear the infection more quickly and prevent the spread of infection to others. Antibiotic medicines taken by mouth (orally) to treat infections that do not respond to drops or ointments or that last longer than 10 days. Cool, wet cloths (cool compresses) placed on the eyes. Artificial tears applied 2 6 times a day. Follow these instructions at home: Medicines Take or apply your antibiotic medicine as told by your health care provider. Do not stop using the antibiotic, even if your condition improves, unless directed by your health care provider. Take or apply bioj-nhg-bpxeywl and prescription medicines only as told by your health care provider. Be very careful to avoid touching the edge of your eyelid with the eye-drop bottle or the ointment tube when you apply medicines to the affected eye. This will keep you from spreading the infection to your other eye or to other people. Managing discomfort Gently wipe away any drainage from your eye with a warm, wet washcloth or a cotton ball. Apply a clean, cool compress to your eye for 10 20 minutes, 3 4 times a day. General instructions Do not wear contact lenses until the inflammation is gone and your health care provider says it is safe to wear them again. Ask your health care provider how to sterilize or replace your contact lenses before you use them again. Wear glasses until you can resume wearing contact lenses. Avoid wearing eye makeup until the inflammation is gone. Throw away any old eye cosmetics that may be contaminated. Change or wash your pillowcase every day. Do not share towels or washcloths. This may spread the infection. Wash your hands often with soap and water for at least 20 seconds and especially before touching your face or eyes. Use paper towels to dry your hands. Avoid touching or rubbing your eyes. Do not drive or use heavy machinery if your vision is blurred. Contact a health care provider if: You have a fever. Your symptoms do not get better after 10 days. Get help right away if: You have a fever and your symptoms suddenly get worse. You have severe pain when you move your eye. You have facial pain, redness, or swelling. You have a sudden loss of vision. Summary Bacterial conjunctivitis is an infection of the clear membrane that covers the white part of the eye and the inner surface of the eyelid (conjunctiva). Bacterial conjunctivitis spreads easily from eye to eye and from person to person (is contagious). Wash your hands often with soap and water for at least 20 seconds and especially before touching your face or eyes. Use paper towels to dry your hands. Take or apply your antibiotic medicine as told by your health care provider. Do not stop using the antibiotic even if your condition improves. Contact a health care provider if you have a fever or if your symptoms do not get better after 10 days. Get help right away if you have a sudden loss of vision. This information is not intended to replace advice given to you by your health care provider. Make sure you discuss any questions you have with your health care provider. Document Revised: 02/25/2022 Document Reviewed: 02/25/2022 [employer] Patient Education 2023 [employer] Follow Up Care 12/31/2024 11:56:38 With:Li Greenwood Address: [address] [place] [phone] Business (1) When:01/03/2025 14:33:57 [facility] 02-02-2025 NoteED Patient Education Note ENT Otitis Media, Adult Otitis media occurs when there is inflammation and fluid in the middle ear with signs and symptoms of an acute infection. The middle ear is a part of the ear that contains bones for hearing as well as air that helps send sounds to the brain. When infected fluid builds up in this space, it causes pressure and can lead to an ear infection. The eustachian tube connects the middle ear to the back of the nose (nasopharynx) and normally allows air into the middle ear. If the eustachian tube becomes blocked, fluid can build up and become infected. What are the causes? This condition is caused by a blockage in the eustachian tube. This can be caused by mucus or by swelling of the tube. Problems that can cause a blockage include: ??? A cold or other upper respiratory infection. ??? Allergies. ??? An irritant, such as tobacco smoke. ??? Enlarged adenoids. The adenoids are areas of soft tissue located high in the back of the throat, behind the nose and the roof of the mouth. They are part of the body's defense system (immune system). ??? A mass in the nasopharynx. ??? Damage to the ear caused by pressure changes (barotrauma). What increases the risk? You are more likely to develop this condition if you: ??? Smoke or are exposed to tobacco smoke. ??? Have an opening in the roof of your mouth (cleft palate). ??? Have gastroesophageal reflux. ??? Have an immune system disorder. What are the signs or symptoms? Symptoms of this condition include: ??? Ear pain. ??? Fever. ??? Decreased hearing. ??? Tiredness (lethargy). ??? Fluid leaking from the ear, if the eardrum is ruptured or has burst. ??? Ringing in the ear. How is this diagnosed? This condition is diagnosed with a physical exam. During the exam, your health care provider will use an instrument called an otoscope to look in your ear and check for redness, swelling, and fluid. He or she will also ask about your symptoms. Your health care provider may also order tests, such as: ??? A pneumatic otoscopy. This is a test to check the movement of the eardrum. It is done by squeezing a small amount of air into the ear. ??? A tympanogram. This is a test that shows how well the eardrum moves in response to air pressurein the ear canal. It provides a graph for your health care provider to review. How is this treated? This condition can go away on its own within 3?5 days. But if the condition is caused by a bacterial infection and does not go away on its own, or if it keeps coming back, your health care provider may: ??? Prescribe antibiotic medicine to treat the infection. ??? Prescribe or recommend medicines to control pain. Follow these instructions at home: ??? Take tozy-xqs-ulmnnaw and prescription medicines only as told by your health care provider. ??? If you were prescribed an antibiotic medicine, take it as told by your health care provider. Donot stop taking the antibiotic even if you start to feel better. ??? Keep all follow-up visits. This is important. Contact a health care provider if: ??? You have bleeding from your nose. ??? There is a lump on your neck. ??? You are not feeling better in 5 days. ??? You feel worse instead of better. Get help right away if: ??? You have severe pain that is not controlled with medicine. ??? You have swelling, redness, or pain around your ear. ??? You have stiffness in your neck. ??? A part of your face is not moving (paralyzed). ??? The bone behind your ear (mastoid bone) is tender when you touch it. ??? You develop a severe headache. Summary ??? Otitis media is redness, soreness, and swelling of the middle ear, usually resulting in pain and decreased hearing. ??? This condition can go away on its own within 3?5 days. ??? If the problem does not go away in 3?5 days, your health care provider may give you medicines to treat the infection. ??? If you were prescribed an antibiotic medicine, take it as told by your health care provider. ??? Follow all instructions that were given to you by your health care provider. This information is not intended to replace advice given to you by your health care provider. Make sure you discuss any questions you have with your health care provider. Document Revised: 02/23/2022 Document Reviewed: 02/23/2022 [employer] Patient Education ? 2023 [employer]. Infectious Disease Bacterial Conjunctivitis, Adult Bacterial conjunctivitis is an infection of the clear membrane that covers the white part of the eye and the inner surface of the eyelid (conjunctiva). When the blood vessels in the conjunctiva become inflamed, the eye becomes red or pink. The eye often feels irritated or itchy. Bacterial conjunctivitis spreads easily from person to person (is contagious). It also spreads easily from one eye to the other eye. What are the causes? This condition is cau (more content not included)...[facility] 12-16-2024 Hospital Discharge instructions Patient Education 12/16/2024 16:45:17 Allergic Conjunctivitis, Adult, Qwnz-on-Tyli Allergic Conjunctivitis, Adult Allergic conjunctivitis is inflammation of the clear membrane that covers the white part of your eye and the inner surface of your eyelid. This area is called the conjunctiva. This condition can make your eye red or pink. It can also make your eye feel itchy. This condition is not contagious. This means that it cannot be spread from one person to another person. What are the causes? This condition is caused by allergens. These are things that can cause an allergic reaction in somepeople. Common allergens include: Outdoor allergens, such as: ?Pollen, including pollen from grass and weeds. ?Mold. ?Car fumes. Indoor allergens, such as: ?Dust. ?Smoke. ?Mold. ?Proteins in a pet's pee (urine), saliva, or dander. Proteins that build up in contact lenses. What increases the risk? You are more likely to develop this condition if you have a family history of these things: Allergies. Conditions that you get because of allergens, such as asthma or inflammation of the skin (eczema). What are the signs or symptoms? Symptoms of this condition include eyes that are: Itchy. Red. Watery. Puffy. Your eyes may also: Sting or burn. Have clear fluid draining from them. Have thick mucus coming from them. This happens in severe cases. How is this treated? Treatment for this condition may include: Using cold, wet cloths (cold compresses) to soothe itching and swelling. Washing the face, hair, and clothing to remove allergens. Using eye drops. These may include: ?Eye drops that block allergies. ? Eye drops that reduce swelling and irritation. ?Steroid eye drops if other treatments have not worked. Oral antihistamine medicines. These medicines lessen your allergies. You may need these if eye drops do not help or are difficult to use. Air purifier at home and work. Wrap around sunglasses. This may help to block allergens from reaching the eye. Not wearing contact lenses, if the doctor has found that contact lenses caused your symptoms. Use daily wear disposal contact lenses instead. Follow these instructions at home: Eye care Place a cool, clean washcloth on your eye for 10 20 minutes. Do this 3 4 times a day. Do not touch or rub your eyes. Do not wear contact lenses until the inflammation is gone. Wear glasses instead. Do not wear eye makeup until the inflammation is gone. General instructions Try not to be around things that you are allergic to. Take or apply kjnx-hgn-lgrfgir and prescription medicines only as told by your doctor. These include any eye drops. Drink enough fluid to keep your pee pale yellow. Keep all follow-up visits. Contact a doctor if: Your symptoms get worse. Your symptoms do not get better with treatment. You have mild eye pain. You are sensitive to light. You have spots or blisters on your eyes. You have pus coming from your eye. You have a fever. Get help right away if: You have redness, swelling, or other symptoms in only one eye. You cannot see well. You have other vision changes. You have very bad eye pain. Summary Allergic conjunctivitis is caused by allergens. It can make your eye red or pink, and it can make your eye feel itchy. This condition cannot be spread from one person to another person. Avoid things that you are allergic to. Take or apply tipb-vkm-aizmbou and prescription medicines only as told by your doctor. These include any eye drops. Contact your doctor if your symptoms get worse or they do not get better with treatment. This information is not intended to replace advice given to you by your health care provider. Make sure you discuss any questions you have with your health care provider. Document Revised: 01/22/2023 Document Reviewed: 01/22/2023 [employer] Patient Education 2023 [employer]. Follow Up Care 12/16/2024 16:20:32 With:Li Greenwood Address: [address] [place], [place] [phone]- Business (1) When:12/19/2024 16:44:59 Comments:Call to schedule a follow-up appointment with your primary care provider. Use the drops as prescribed. Return to the ED with any new or worsening symptoms. [facility] 01-18-2025 NoteED Patient Education Note Ophthalmology Allergic Conjunctivitis, Adult Allergic conjunctivitis is inflammation of the clear membrane that covers the white part of your eye and the inner surface of your eyelid. This area is called the conjunctiva. This condition can make your eye red or pink. It can also make your eye feel itchy. This condition is not contagious. This means that it cannot be spread from one person to another person. What are the causes? This condition is caused by allergens. These are things that can cause an allergic reaction in somepeople. Common allergens include: ??? Outdoor allergens, such as: ? Pollen, including pollen from grass and weeds. ? Mold. ? Car fumes. ??? Indoor allergens, such as: ? Dust. ? Smoke. ? Mold. ? Proteins in a pet's pee (urine), saliva, or dander. ??? Proteins that build up in contact lenses. What increases the risk? You are more likely to develop this condition if you have a family history of these things: ??? Allergies. ??? Conditions that you get because of allergens, such as asthma or inflammation of the skin (eczema). What are the signs or symptoms? Symptoms of this condition include eyes that are: ??? Itchy. ??? Red. ??? Watery. ??? Puffy. Your eyes may also: ??? Sting or burn. ??? Have clear fluid draining from them. ??? Have thick mucus coming from them. This happens in severe cases. How is this treated? Treatment for this condition may include: ??? Using cold, wet cloths (cold compresses) to soothe itching and swelling. ??? Washing the face, hair, and clothing to remove allergens. ??? Using eye drops. These may include: ? Eye drops that block allergies. ? Eye drops that reduce swelling and irritation. ? Steroid eye drops if other treatments have not worked. ??? Oral antihistamine medicines. These medicines lessen your allergies. You may need these if eye drops do not help or are difficult to use. ??? Air purifier at home and work. ??? Wrap around sunglasses. This may help to block allergens from reaching the eye. ??? Not wearing contact lenses, if the doctor has found that contact lenses caused your symptoms. Use daily wear disposal contact lenses instead. Follow these instructions at home: Eye care ??? Place a cool, clean washcloth on your eye for 10?20 minutes. Do this 3?4 times a day. ??? Do not touch or rub your eyes. ??? Do not wear contact lenses until the inflammation is gone. Wear glasses instead. ??? Do not wear eye makeup until the inflammation is gone. General instructions ??? Try not to be around things that you are allergic to. ??? Take or apply zkqb-wdx-ggzreqt and prescription medicines only as told by your doctor. These include any eye drops. ??? Drink enough fluid to keep your pee pale yellow. ??? Keep all follow-up visits. Contact a doctor if: ??? Your symptoms get worse. ??? Your symptoms do not get better with treatment. ??? You have mild eye pain. ??? You are sensitive to light. ??? You have spots or blisters on your eyes. ??? You have pus coming from your eye. ??? You have a fever. Get help right away if: ??? You have redness, swelling, or other symptoms in only one eye. ??? You cannot see well. ??? You have other vision changes. ??? You have very bad eye pain. Summary ??? Allergic conjunctivitis is caused by allergens. It can make your eye red or pink, and it can make your eye feel itchy. ??? This condition cannot be spread from one person to another person. ??? Avoid things that you are allergic to. ??? Take or apply hamd-skb-yunfwdj and prescription medicines only as told by your doctor. These include any eye drops. ??? Contact your doctor if your symptoms get worse or they do not get better with treatment. This information is not intended to replace advice given to you by your health care provider. Make sure you discuss any questions you have with your health care provider. Document Revised: 01/22/2023 Document Reviewed: 01/22/2023 [employer] Patient Education ? 2023 [facility] Hospital Discharge instructions Patient Education 03/11/2024 21:47:03 Vaginal Yeast Infection, Adult Vaginal Yeast Infection, Adult Vaginal yeast infection is a condition that causes vaginal discharge as well as soreness, swelling,and redness (inflammation) of the vagina. This is a common condition. Some women get this infectionfrequently. What are the causes? This condition is caused by a change in the normal balance of the yeast (Lucille) and normal bacteria that live in the vagina. This change causes an overgrowth of yeast, which causes the inflammation. What increases the risk? The condition is more likely to develop in women who: Take antibiotic medicines. Have diabetes. Take control pills. Are . Douche often. Have a weak body defense system (immune system). Have been taking steroid medicines for a long time. Frequently wear tight clothing. What are the signs or symptoms? Symptoms of this condition include: White, thick, creamy vaginal discharge. Swelling, itching, redness, and irritation of the vagina. The lips of the vagina (labia) may be affected as well. Pain or a burning feeling while urinating. Pain during sex. How is this diagnosed? This condition is diagnosed based on: Your medical history. A physical exam. A pelvic exam. Your health care provider will examine a sample of your vaginal discharge under a microscope. Your health care provider may send this sample for testing to confirm the diagnosis. How is this treated? This condition is treated with medicine. Medicines may be opzs-xsx-wpxbxnk or prescription. You maybe told to use one or more of the following: Medicine that is taken by mouth (orally). Medicine that is applied as a cream (topically). Medicine that is inserted directly into the vagina (suppository). Follow these instructions at home: Take or apply pskz-agk-etsocpg and prescription medicines only as told by your health care provider. Do not use tampons until your health care provider approves. Do not have sex until your infection has cleared. Sex can prolong or worsen your symptoms of infection. Ask your health care provider when it is safe to resume sexual activity. Keep all follow-up visits. This is important. How is this prevented? Do not wear tight clothes, such as pantyhose or tight pants. Wear breathable cotton underwear. Do not use douches, perfumed soap, creams, or powders. Wipe from front to back after using the toilet. If you have diabetes, keep your blood sugar levels under control. Ask your health care provider for other ways to prevent yeast infections. Contact a health care provider if: You have a fever. Your symptoms go away and then return. Your symptoms do not get better with treatment. Your symptoms get worse. You have new symptoms. You develop blisters in or around your vagina. You have blood coming from your vagina and it is not your menstrual period. You develop pain in your abdomen. Summary Vaginal yeast infection is a condition that causes discharge as well as soreness, swelling, and redness (inflammation) of the vagina. This condition is treated with medicine. Medicines may be gaqr-lwd-xrupwqn or prescription. Take or apply gnrj-kup-tebwecu and prescription medicines only as told by your health care provider. Do not douche. Resume sexual activity or use of tampons as instructed by your health care provider. Contact a health care provider if your symptoms do not get better with treatment or your symptoms go away and then return. This information is not intended to replace advice given to you by your health care provider. Make sure you discuss any questions you have with your health care provider. Document Revised: 02/02/2022 Document Reviewed: 02/02/2022 [employer] Patient Education 2022 [employer]. Follow Up Care 03/11/2024 21:18:44 With:Li Greenwood MD Address: [address] [place] [address]- When:03/14/2024 [facility]04-13-2024 Evaluation + Plan noteExtracted from: Title:ED NoteAuthor:Arabella Walker PA-CDate:03/11/24 1. Vulvovaginal candidiasis (B37.31: Acute candidiasis of vulva and vagina) Ordered: fluconazole, 150 mg = 1 tab(s), Oral, Once, # 1 tab(s), Refills(s) 1, Pharmacy: [facility]/pharmacy #[id number], cm, 03/11/24 21:29:00 EDT, Height/Length Dosing, 101.1, kg, 03/11/24 21:29:00 EDT, Weight Dosing Orders: fluconazole, 150 mg = 1 tab(s), Tab, Oral, Once, Stop date 03/11/24 21:48:00 EDT, STAT, Start date 03/11/24 21:48:00 EDT, 03/11/24 21:48:00 EDT UA with Cult Rflx Diagnostic Tests Pending * Urine Culture 03/11/24 [facility]02-05-2024 Hospital Discharge instructions Patient Education 01/03/2024 16:32:21 BMI for Adults BMI for Adults What is BMI? Body mass index (BMI) is a number that is calculated from a person's weight and height. BMI can help estimate how much of a person's weight is composed of fat. BMI does not measure body fat directly.Rather, it is an alternative to procedures that directly measure body fat, which can be difficult and expensive. BMI can help identify people who may be at higher risk for certain medical problems. What are BMI measurements used for? BMI is used as a screening tool to identify possible weight problems. It helps determine whether a person is obese, overweight, a healthy weight, or underweight. BMI is useful for: Identifying a weight problem that may be related to a medical condition or may increase the risk for medical problems. Promoting changes, such as changes in diet and exercise, to help reach a healthy weight. BMI screening can be repeated to see if these changes are working. How is BMI calculated? BMI involves measuring your weight in relation to your height. Both height and weight are measured,and the BMI is calculated from those numbers. This can be done either in [place] ([place] or metric measurements. Note that charts and online BMI calculators are available to help you find your BMI quickly and easily without having to do these calculations yourself. To calculate your BMI in [place] ([place] measurements: 1.Measure your weight in pounds (lb). 2.Multiply the number of pounds by 703. For example, for a person who weighs 180 lb, multiply that number by 703, which equals 126,540. 3.Measure your height in inches. Then multiply that number by itself to get a measurement called inches squared. For example, for a person who is 70 inches tall, the inches squared measurement is 70 inches x 70inches, which equals 4,900 inches squared. 4.Divide the total from step 2 (number of lb x 703) by the total from step 3 (inches squared): 126,540 4,900 = 25.8. This is your BMI. To calculate your BMI in metric measurements: 1.Measure your weight in kilograms (kg). 2.Measure your height in meters (m). Then multiply that number by itself to get a measurement called meters squared. For example, for a person who is 1.75 m tall, the meters squared measurement is 1.75 m x 1.75 m, which is equal to 3.1 meters squared. 3.Divide the number of kilograms (your weight) by the meters squared number. In this example: 70 3.1 = 22.6. This is your BMI. What do the results mean? BMI charts are used to identify whether you are underweight, normal weight, overweight, or obese. The following guidelines will be used: Underweight: BMI less than 18.5. Normal weight: BMI between 18.5 and 24.9. Overweight: BMI between 25 and 29.9. Obese: BMI of 30 or above. Keep these notes in mind: Weight includes both fat and muscle, so someone with a muscular build, such as an athlete, may havea BMI that is higher than 24.9. In cases like these, BMI is not an accurate measure of body fat. To determine if excess body fat is the cause of a BMI of 25 or higher, further assessments may needto be done by a health care provider. BMI is usually interpreted in the same way for men and women. Where to find more information For more information about BMI, including tools to quickly calculate your BMI, go to these websites: Centers for Disease Control and Prevention: www.cdc.gov [place] Heart Association: www.heart.org National Heart, Lung, and Blood [place]: www.nhlbi.nih.gov Summary Body mass index (BMI) is a number that is calculated from a person's weight and height. BMI may help estimate how much of a person's weight is composed of fat. BMI can help identify thosewho may be at higher risk for certain medical problems. BMI can be measured using Mongolian measurements or metric measurements. BMI charts are used to identify whether you are underweight, normal weight, overweight, or obese. This information is not intended to replace advice given to you by your health care provider. Make sure you discuss any questions you have with your health care provider. Document Revised: 08/07/2020 Document Reviewed: 06/14/2020 [employer] Patient Education 2022 [employer]. 01/03/2024 16:31:48 Suture Removal, Care After Suture Removal, Care After The following information offers guidance on how to care for yourself after your procedure. Your health care provider may also give you more specific instructions. If you have problems or questions, contact your health care provider. What can I expect after the procedure? After your stitches (sutures) are removed, it is common to have: Some discomfort and swelling in the area. Slight redness in the area. Follow these instructions at home: If you have a dressing: Wash your hands with soap and water for at least 20 seconds before and after you change your bandage (dressing). If soap and water are not available, use hand childcare center director. Change your dressing as told by your health care provider. If your dressing becomes wet or dirty, or develops a bad smell, change it as soon as possible. If your dressing sticks to your skin, pour warm, clean water over it until it loosens and can be removed without pulling apart the wound edges. Pat the area dry with a soft, clean towel. Do not rub the wound because that may cause bleeding. Wound care Check your wound every day for signs of infection. Check for: ?More redness, swelling, or pain. ?Fluid or blood. ?New warmth, a rash, or hardness at the wound site. ? Pus or a bad smell. Wash your hands with soap and water for at least 20 seconds before and after touching your wound. If soap and water are not available, use hand childcare center director. Keep the wound area dry and clean. Clean and pat the wound dry as told by your health care provider. Apply cream or ointment only as told by your health care provider. If skin glue or adhesive strips were applied after sutures were removed, leave these closures in place. They may need to stay in place for 2 weeks or longer. If adhesive strip edges start to loosen and curl up, you may trim the loose edges. Do not remove adhesive strips completely unless your health care provider tells you to do that. Continue to protect the wound from injury. Do not pick at your wound. Picking can cause an infection. Bathing Do not take baths, swim, or use a hot tub until your health care provider approves. Ask your healthcare provider if you may take showers. Follow these steps for showering: ?If you have a dressing, remove it before getting into the shower. ?In the shower, allow soapy water to get on the wound. Avoid scrubbing the wound. ?When you get out of the shower, dry the wound by patting it with a clean towel. ?Reapply a dressing over the wound, if needed. Scar care When your wound has completely healed, help decrease the size of your scar by: Wearing sunscreen over the scar or covering it with clothing when you are outside. New scars get sunburned easily, which can make scarring worse. Gently massaging the scarred area. This can decrease scar thickness. General instructions Take ekhq-iss-vmtvotj and prescription medicines only as told by your health care provider. Keep all follow-up visits. This is important. Contact a health care provider if: You have more redness, swelling, or pain around your wound. You have fluid or blood coming from your wound. You have new warmth, a rash, or hardness at the wound site. You have pus or a bad smell coming from your wound. Your wound opens up. Get help right away if: You have a fever or chills. You have red streaks coming from your wound. Summary After your sutures are removed, it is common to have some discomfort and swelling in the area. Wash your hands with soap and water before you change your bandage (dressing). Keep the wound area dry and clean. Do not take baths, swim, or use a hot tub until your health careprovider approves. This information is not intended to replace advice given to you by your health care provider. Make sure you discuss any questions you have with your health care provider. Document Revised: 03/10/2022 Document Reviewed: 03/10/2022 [employer] Patient Education 2022 [employer]. Follow Up Care 01/03/2024 09:33:25 With:Li Greenwood MD Address: [address] [place] [address] [place] [address]- When: Unknown [facility] 01-27-2024 Hospital Discharge instructions Patient Education 12/25/2023 18:50:38 Sutures, Aruna, or Adhesive Wound Closure, Xfqk-pf-Gkax Sutures, Wakefield, or Adhesive Wound Closure Doctors use stitches (sutures), aruna, skin glue (tissue adhesive), and skin tape (adhesive strips) to hold your skin together while it heals (wound closure). What your doctor will use depends on your wound. Your doctor also may use more than one way to close your wound. In most cases, your wound will be closed right away (primary skin closure). Sometimes, it may be closed later so that it can be cleaned and then heal on its own (delayed wound closure). What are the types of wound closure? Skin glue To use skin glue, your doctor will: ?Hold the edges of the wound together. ?[place] the glue onto your skin. You may need more than one layer. ?Cover your wound with a bandage (dressing) after the glue is dry. Skin glue may be used for: ?Small wounds that are not deep (superficial wounds). ?Wounds on the face. ?Children's wounds. Skin glue is not used inside of wounds, or on wounds that are: ?Deep. ?Uneven. ?Bleeding. Some benefits of skin glue are: ?It leaves nothing that needs to be taken off. ?You do not need medicine to numb the area. ?You have less pain than with other types of closure. Skin tape Skin tape is: Made of paper that is sticky (adhesive) and has many small holes in it. Placed across your wound edges like a normal bandage. Used to close very shallow wounds. Sometimes used with sutures to help improve closure. Sutures Sutures come in many different materials, strengths, and sizes. Some sutures break down as your wound heals (absorbable). Other sutures need to be taken out (nonabsorbable). To use sutures, your doctor will: Sew your skin together with sutures and a needle. Use one long stitch or separate stitches. Tie and cut the sutures at the end. Sutures can be used for all types of wounds, including under the skin. They can cause a skin reaction that can lead to infection. Wakefield Wakefield are often used to close cuts from surgery (incisions). To use aruna, your doctor will: Hold the edges of your wound close together. Place a staple across the wound. Use a tool to secure the staple to the skin. Repeat this with as many aruna as needed. Wakefield are faster to use than sutures, and they cause less reaction from your skin. Wakefield need to be taken out using a tool that bends the aruna away from your skin. Follow these instructions at home: Medicines Take itvr-jeb-xeckswp and prescription medicines only as told by your doctor. If you were prescribed an antibiotic medicine, take it as told by your doctor. Do not stop taking it even if you start to feel better. Wound care Follow instructions from your doctor about how to take care of your wound and bandage. Wash your hands with soap and water for at least 20 seconds before and after touching your wound orbandage. If you cannot use soap and water, use hand childcare center director. Do not try to take off or take out your wound closures unless your doctor tells you to do that. Youmay need a follow-up visit for your doctor to take out your closures. ?Closures may stay in place for 2 weeks or longer. ?Absorbable sutures may break down after a few days or weeks. ?If skin tape edges start to loosen and curl up, you may trim the loose edges. Do not pick at your wound. Picking can cause an infection or cause your wound to open up again. Apply ointments or creams only as told by your doctor. Check your wound every day for signs of infection. Check for: ?Redness, swelling, or pain. ?Fluid or blood. ?New warmth, a rash, or hardness at the wound site. ?Pus or a bad smell. General instructions Do not take baths, swim, or use a hot tub. Ask your doctor about taking showers or sponge baths. Do not soak your wound in water. Eat foods that include protein, vitamin A, and vitamin C. These nutrients help your wound heal. Drink enough fluid to keep your pee (urine) pale yellow. Keep all follow-up visits. Contact a doctor if: You have a fever or chills. You have redness, swelling, or pain around your wound. You have fluid or blood coming from your wound. You have new warmth, a rash, or hardness around your wound. You see that your wound becomes thick, raised, and darker in color after your sutures come out (scarring). Get help right away if: The edges of your wound start to separate. Your wound opens up again. You notice pus or a bad smell coming from your wound. Summary What your doctor uses to hold your skin together while it heals (wound closure) depends on your wound. Your doctor may use stitches (sutures), aruna, skin glue (tissue adhesive), or skin tape (adhesive strips). Do not try to take off or take out your wound closures unless your doctor tells you to do that. Do not soak your wound in water. This information is not intended to replace advice given to you by your health care provider. Make sure you discuss any questions you have with your health care provider. Document Revised: 03/23/2022 Document Reviewed: 03/23/2022 [employer] Patient Education 2022 [employer]. Follow Up Care 12/25/2023 18:07:37 With:Li Greenwood MD Address: [address] [place], [place] [id number]- When:7 to 10 days Comments:Sutures out in 10 daysKeep covered with a bandage and bacitracinDo not submerge in waterCall today to schedule your follow up [facility]01-02-2024 Evaluation + Plan noteExtracted from: Title:ED NoteAuthor:Jose Lopez DODate:11/30/23 Constipation, acute (K59.00: Constipation, unspecified) Orders: polyethylene glycol 3350, 17 gm, Oral, Daily, X 7 day(s), # 119 gm, Refills(s) 0, Pharmacy: [facility]/pharmacy #[id number], 170.2, cm, 11/30/23 9:04:00 EST, Height/Length Dosing, 105, kg, 11/30/23 9:04:00 EST, Weight Dosing Communication Order Communication Order Physician to Nursing [facility]01-02-2024 Hospital Discharge instructions Follow Up Care 11/30/2023 08:57:07 With:Kyra Tellez Address: [address], [address] [phone] Business (1) When:12/03/2023 11:39:59 With:SEGUNDO PLASCENCIA Address: [place] [phone]- Business (1) When:Within 3 Day(s) [facility] N[facility] No data available for this section [facility] No data available for this section [facility] [place] Progress note No data available for this section [facility] Summary Purpose Family History No Family History Records FoundNo Family History Records Found No data available for this section No data available for this section No data available for this section No data available for this section No data available for this section No data available for this section No data available for this section No data available for this section No Family History Records FoundNo Family History Records FoundNo Family History Records Found Advance Directives No Advanced Directives Records FoundNo Advanced Directives Records FoundNo Advanced Directives Records FoundNo Advanced Directives Records FoundNo Advanced Directives Records Found Additional Source Comments INFORMATION SOURCE (unrecogn ized section and content) DATE CREATED AUTHOR 03/20/2022 [facility] DATE CREATED AUTHOR AUTHOR'S ORGANIZ ATION 11/30/2023 [facility] DATE CREATED AUTHOR AUTHOR'S ORGANIZ ATION 01/01/2025 [facility] DATE CREATED AUTHOR AUTHOR'S ORGANIZ ATION 01/04/2025 [facility] Patient Care team informatio n (unrecognized section and content) Personnel Name: SEGUNDO PLASCENCIA MD Address: Address: [address] No data available for this section Personnel Name: Li Greenwood MD Address: Address: [address] [place] [address] Personnel Name: Li Greenwood MD Address: Address: [address] [place] [address] Personnel Name: Li Greenwood MD Address: Address: [address] [place] [address] [place] Personnel Name: Li Greenwood MD Address: Address: [address] [place] [address] [place], [place] [address] Personnel Name: Li Greenwood MD Address: Address: [address] [place] [address] [place] [id number] Personnel Name: Li Greenwood MD Address: Address: [address] [place] [address] FOR RECORDS PERTAINING TO PATIENTS WHO ARE [...] BE BASED ON THE PRIMARY CLINICAL RECORDS. [facility]. provides no warranty or guarantee of the accuracy or completeness of information in this document.
--- OUTSIDE RECORDS SUMMARY | 2025-09-23 16:46 | XMS_ITS | Patient Health Record ---
Author Organization [facility] in [place] Address [address] [place] [address] Care Team Providers [facility] Name Role Phone Nikolay Greenwood Primary Care Provider [phone] Allergies Allergen (clinical drug ingredient) Drug/Non Drug Allergy documented on EMR Reaction Allergy Type Onset Date Status sulfamethoxazole / trimethoprim Bactrim DS hives Drug Allergy Active Reason For Referral No Information Medications Medication SIG (Take, Route, Frequency, Duration) Notes Start Date End Date Status Furosemide 40 MG 1 tablet Orally Once a day ActiveGlimepiride 4 MG2 tablet with breakfast or the first main meal of the day Orally Once a dayActiveSpironolactone 50 MG1 tablet Orally Once a dayActive Citalopram Hydrobromide 20 MG1 tablet Orally Once a dayActiveSpiriva Respimat 2.5 MCG/ACTINHALE 2 PUFFS INTO THE LUNGS EVERY DAY; Duration: 30ActiveBreo Ellipta 100-25 MCG/ACT1 inhaled qd; Duration: 30 daysActiveNebulizer Mask and Tubing-Adult -as directed DX: COPD Daily; Duration: 90 daysActiveLancets 30G -as directedActiveCefdinir 300 MG2 tabs Orally once a day; Duration: ActiveAtorvastatin Calcium 10 MG1 tablet Orally Once a dayActivemetFORMIN HCl 500 MG1 tablet with a meal Orally BIDActiveDoxycycline Monohydrate 100 MG1 capsule Orally BID; Duration: ctiveAlbuterol Sulfate (2.5 MG/3ML) 0.083%INHALE 1 VIAL VIA NEBULIZER 4 TIMES A DAY NEEDED; Duration: 90Active Fluticasone Furoate-Vilanterol 100-25 MCG/ACTINHALE 1 PUFF BY MOUTH DAILY; Duration: 30ActiveProAir RespiClick 108 (90 Base) MCG/ACTINHALE 2 PUFFS BY MOUTH 4 TIMES DAILY NEEDED FOR 30 DAYS; Duration: 30ActiveJanuvia 100 MG1 tablet Orally Once a dayActiveAscensia Breeze MonitorActive Social History Tobacco Use: Social History Observation Description Date Details (start date - stop date) Former Smoker 11/29/1988 - 03/12/2023 Tobacco Use/Smoking Question Answer Notes Patient is a former smoker When did you start smoking?11/29/1988When did you stop smoking?03/12/2023How long has it been since you last smoked?< 1 monthAdditional Findings: Tobacco Non-UserCurrent non-smokerAlcohol Screen (Audit-C) Question Answer Notes Did you have a drink containing alcohol in the p ast year? No [id number] Problems Problem Type SNOMED Code ICD Code Onset Dates Problem Status W/U Status Risk Notes Problem Fluid overload (52316746) Other fluid ove rload (E87.79) ActiveconfirmedProblemPeripheral vertigo (65432691)Other peripheral vertigo, unspecified ear (H81.399)ActiveconfirmedProblemFuruncle of buttock (40937994) Furuncle of buttock (L02.32)ActiveconfirmedProblemHyperlipidemia (54054434) Hyperlipidemia (E78.5)ActiveconfirmedProblemMorbid obesity (355440279)Morbid obesity (E66.01)ActiveconfirmedProblemHypertension (93613012)Hypertension (I10) ActiveconfirmedProblemCOPD - Chronic obstructive pulmonary disease (16060755) COPD (chronic obstructive pulmonary disease) (J44.9)ActiveconfirmedProblemEdema (76583484)Edema (R60.9)ActiveconfirmedProblemCardiomegaly (0243805)LVH (left ventricular hypertrophy) (I51.7)ActiveconfirmedProblemInsomnia (101501745) Insomnia (G47.00)ActiveconfirmedProblemVentral hernia (892593271)Ventral hernia (K43.9)ActiveconfirmedProblemBronchitis (33828429)Bronchitis (J40)Active confirmedProblemHypertriglyceridemia (973596229)Hypertriglyceridemia (E78.1) ActiveconfirmedProblemSinusitis (16660720)Sinusitis (J32.9)Activeconfirmed ProblemAcute sinusitis (88952474)Acute sinusitis (J01.90)ActiveconfirmedProblem Pharyngitis (286633100)Pharyngitis (J02.9)ActiveconfirmedProblemAcute bronchitis (86329751)Acute bronchitis (J20.9)ActiveconfirmedProblemGastritis (8259720) Gastritis (K29.70)ActiveconfirmedProblemWell adult (667981249)Well adult (Z00.00)ActiveconfirmedProblemBoil (15558937)Boil (L02.92)ActiveconfirmedProblem Cellulitis (965697785)Cellulitis (L03.90)ActiveconfirmedProblemAbscess of chest wall (87906310)Abscess of chest wall (L02.213)ActiveconfirmedProblemUmbilical hernia (516575955)Umbilical hernia (K42.9)ActiveconfirmedProblemLeft lower quadrant pain (861072148)Abdominal pain, left lower quadrant (R10.32)Active confirmedProblemNevus (8419368706)Nevus (D22.9)ActiveconfirmedProblemChronic obstructive pulmonary disease (33479713)COPD, mild (J44.9)ActiveconfirmedProblem Cardiomegaly (1450040)Atrial enlargement, bilateral (I51.7)Activeconfirmed ProblemShoulder impingement syndrome (651456733)Shoulder impingement syndrome (M75.40)ActiveconfirmedProblemPneumococcal pneumonia (237005384)Pneumonia, lobar (J18.1)ActiveconfirmedProblemPulmonary hypertension (29987284)Pulmonary hypertension (I27.20)ActiveconfirmedProblemHematoma (99902757)Hematoma (T14.8XXA)ActiveconfirmedProblemDiabetes mellitus (30214243)Diabetes mellitus (E11.9)Activeconfirmed Encounters Encounter Location Date Provider Diagnosis [facility] [address] [place] [address] 03/28/2025 Nikolay Greenwood Plan Of Treatment No Information Insurance Providers Payer Name Payer Address Payer Phone Subscriber Number Group Number Insured Name Patient Relationship to Insured Coverage Start Date Coverage End Date BCBS OUT OF STATE [address] [place] [address] [id number] [place] - patient is the insured 9 Medications Administered Medication Instructions Date of Administration Dosage Notes Ceftriaxone 1 gram g1 gram Medical (General) History Medical History History ICD Code Furuncle of buttock L02.32 Insomnia G47.00 Acute sinusitis J01.90 Other peripheral vertigo, unspecified ea r H81.399 Ventral hernia K43.9 Abdominal pain, left lower quadrant R10. 32 COPD, mild J44.9 Atrial enlargement, bilateral I51.7 LVH (left ventricular hypertrophy) I51.7 Pulmonary hypertension I27.20 Other fluid overload E87.79 Pneumonia, lobar J18.1 Gastritis K29.70 Morbid obesity E66.01 Abscess of chest wall L02.213 Nevus D22.9 Acute bronchitis J20.9 Hypertriglyceridemia E78.1 Hyperlipidemia E78.5 Diabetes mellitus E11.9 Well adult Z00.00 Hematoma T14.8XXA Hypertension I10 Umbilical hernia K42.9 Shoulder impingement syndrome M75.40 Bronchitis J40 Edema R60.9 Cellulitis L03.90 Sinusitis J32.9 Pharyngitis J02.9 Surgical History Surgery Date(Month/Year) Umbilical Hernia Repair CHOLECYSTECTOMYHospitalization History Reason Date(Month/Year) COPD, multiple dates
[2025-09-23] MEDS: FLUCONAZOLE 150 MG TABLET PO (17:01)
--- NOTE | 2025-09-23 18:53 | ED_ITS ---
HPI HPI - General Adult General Chief complaint: Urogenital-Female Stated complaint: Yeast infection Time Seen by Provider: 09/23/25 16:44 Source: patient Mode of arrival: walk-in History of Present Illness HPI narrative: Patient is a 55-year-old female presenting to the emergency department for evaluation of yeast infection. Patient states that she has had multiple yeast infections in the past, and her presentation today is similar to those previously. She states she has history of diabetes as well. She states that she has had vaginal itching, white discharge, and vaginal irritation over the last few days. She denies any new sexual partners. No dysuria or hematuria. No abdominal pain, nausea, or vomiting. No fevers or chills. Related Data Home Medications ?Medication ?Instructions ?Recorded ?Confirmed glipizide 5 mg tablet 5 mg PO BID 11/21/23 5 Previous Rx's ?Medication ?Instructions ?Recorded fluconazole 150 mg tablet 150 mg PO DAILY 1 dose #1 ta b 09/23/25 Allergies Allergy/AdvReac Type Severity Reaction Status Date / Time bactrim Allergy Intermediate Hives Uncoded 11/21/23 21:23 Review of Systems ROS Status of ROS 10 or more systems reviewed and unremark able except as noted in history and below PFSH PFSH Social History Little interest or pleasure in doing things: not at all Feeling down, depressed, or hopeless: not at all Exam Narrative Exam Narrative: CONSTITUTIONAL: Well-appearing, answering questions and following commands appropriately SKIN: Was warm and dry. EYES: Sclerae white. EARS, NOSE, THROAT: Moist oral mucosa. RESPIRATORY: Nonlabored respirations. CARDIOVASCULAR: Normal rate and regular rhythm. There is no S3, S4, murmur, rub. GASTROINTESTINAL: Abdomen is nondistended. MUSCULOSKELETAL: No peripheral edema. NEUROLOGIC: Patient is awake and alert. Facies were symmetrical. Constitutional Vital Signs, click to edit/add: Last Vital Signs Temp 98.3 F 09/23/25 16:42 Pulse 94 H 09/23/25 16:42 Resp 20 09/23/25 16:42 BP 175/77 H 09/23/25 16:42 Pulse Ox 94 L 09/23/25 16:42 Course Vital Signs Vital signs: Vital Signs Temperature 98.3 F 09/23/25 16:42 Pulse Rate 94 H 09/23/25 16:42 Respiratory Rate 20 09/23/25 16:42 Blood Pressure 175/77 H 09/23/25 16:42 Pulse Oximetry 94 L 09/23/25 16:42 Temperature 98.3 F 09/23/25 16:42 Pulse Rate 94 H 09/23/25 16:42 Respiratory Rate 20 09/23/25 16:42 Blood Pressure 175/77 H 09/23/25 16:42 Pulse Oximetry 94 L 09/23/25 16:42 Medical Decision Making [facility] Narrative Medical decision making narrative: Patient is a 55-year-old female, history significant for diabetes and recurrent yeast infections, presenting to the emergency department for concerns of a yeast infection. Her vital signs arrival were significant for hypertension, otherwise within normal limits. She is afebrile and hemodynamically stable. Patient was treated with oral Diflucan 150 mg. I do believe the patient is stable outpatient follow-up. Patient's presentation is most likely consistent with yeast vaginitis. They were instructed to follow up with PCP for further care. Return precautions were given including any new or worsening symptoms. They were given a prescription for Diflucan 150 mg to take in 3 days should her symptoms persist. Patient understands and agrees to the plan. FINAL IMPRESSION: #Acute yeast vaginitis #History of type 2 diabetes DISPOSITION: Discharged home CONDITION: Good Discharge Plan Discharge Chief Complaint: Urogenital-Female Clinical Impression: Yeast vaginitis Patient Disposition: Home, Self-Care Time of Disposition Decision: 16:52 Condition: Good Mode of Transportation: Private Vehicle Prescriptions / Home Meds: New fluconazole 150 mg tablet 150 mg PO DAILY Qty: 1 0RF Rx Instructions: administer on day 1 of therapy No Action glipizide 5 mg tablet 5 mg PO BID Print Language: Burundian Instructions: Yeast Infection (ED) Referrals: Chapin Greenwood MD [Primary Care Provider, Family Practice] - 1 week Discharge Date/Time: 09/23/25 17:04
== END 2025-09-23 17:04 | disposition home or self-care (01) ==
PROVIDERS: Emergency Provider Student in an Organized Health Care Education/Training Program; PCP Family Medicine
DX: B37.31 Acute candidiasis of vulva and vagina (principal); E11.9 Type 2 diabetes mellitus without complications; Z79.84 Long term (current) use of oral hypoglycemic drugs
CPT/HCPCS: 99283